=== PATIENT | female | born 1935 | race Caucasian/White ===

== ENCOUNTER 2018-04-06 06:32 | Day surgery (SDC) | payer OTHER, MEDICAID ==
[~2018-04-06] VITALS: Ht 157.5 cm; Wt 77.1 kg
[2018-04-06] MEDS ORDERED: IOHEXOL 350 MG/ML 50 ML BTL (for Cath Lab) OTHER ONE (06:33)
[2018-04-06] MEDS ORDERED: NS 1000P @30 MLS/HR (KVO) IV SCH (07:15)
[2018-04-06 08:04] LABS: AUTOMATED NEUTROPHIL # 3.2 TH/MM3 (1.8-7.7); BASOPHIL # 0.1 TH/MM3 (0-0.2); BASOPHIL % 0.9 % (0.0-2.0); EOSINOPHIL # 0.3 TH/MM3 (0-0.4); EOSINOPHIL % 3.6 % (0.0-4.0); HEMATOCRIT 36.2 % (35.0-46.0); HEMOGLOBIN 12.4 GM/DL (11.6-15.3); LYMPHOCYTE # 2.8 TH/MM3 (1.0-4.8); MEAN CELL VOLUME 91.3 FL (80.0-100.0); MEAN CORPUSCULAR HEMOGLOBIN 31.3 PG (27.0-34.0); MEAN CORPUSCULAR HGB CONC 34.3 % (32.0-36.0); MEAN PLATELET VOLUME 8.4 FL (7.0-11.0); MONO % 11.8 % (0.0-8.0); MONOCYTE # 0.8 TH/MM3 (0-0.9); NEUT % 44.7 % (16.0-70.0); PLATELET COUNT 245 TH/MM3 (150-450); RED BLOOD COUNT 3.96 MIL/MM3 (4.00-5.30); WHITE BLOOD COUNT 7.1 TH/MM3 (4.0-11.0)
[2018-04-06 08:13] LABS: INTERNATIONAL NORMALIZED RATIO 1.1 RATIO; PROTHROMBIN TIME - PATIENT 10.7 SEC (9.8-11.6)
[2018-04-06 08:23] LABS: BICARBONATE 22.3 MEQ/L (21.0-32.0); CALCIUM 9.1 MG/DL (8.5-10.1); CREATININE 1.1 MG/DL (0.50-1.00)
[2018-04-06 08:32] VITALS: BP 162/82; PULSE 75; RESP 18; TEMP 98.1; O2SAT 92
[2018-04-06] MEDS ORDERED: LEVO.075 PO (08:50)
[2018-04-06] MEDS ORDERED: FLUT1SPR5 EACH NARE (08:50)
[2018-04-06] MEDS ORDERED: TRAM50TA PO (08:50)
[2018-04-06] MEDS ORDERED: LEVO.05 PO (08:50)
[2018-04-06] MEDS ORDERED: COQ-50CA2 PO (08:50)
[2018-04-06] MEDS ORDERED: DICY10CA12 PO (08:50)
[2018-04-06] MEDS ORDERED: CINN500C2 PO (08:50)
[2018-04-06] MEDS ORDERED: STOO100T (08:50)
[2018-04-06] MEDS ORDERED: HUMIBIDDM PO (08:50)
[2018-04-06] MEDS ORDERED: ZOFR4TAB PO (08:50)
[2018-04-06] MEDS ORDERED: BIOTCAP PO (08:50)
[2018-04-06] MEDS ORDERED: LEVOTAB PO (08:50)
[2018-04-06] MEDS ORDERED: PANT40TA3 PO (08:50)
[2018-04-06] MEDS ORDERED: MULT-65 PO (08:50)
[2018-04-06] MEDS ORDERED: FIBE625T10 PO (08:50)
[2018-04-06] MEDS ORDERED: LEVA1.257 NEB (08:50)
[2018-04-06] MEDS ORDERED: SENN1TAB PO (08:50)
[2018-04-06] MEDS ORDERED: eye vitamin PO (08:50)
[2018-04-06] MEDS ORDERED: FLUT50SP EACH NARE (08:50)
[2018-04-06] MEDS ORDERED: SACC1CAP3 PO (08:50)
[2018-04-06] MEDS ORDERED: FURO20TA PO (08:50)
[2018-04-06] MEDS ORDERED: LOSA50TA PO (08:50)
[2018-04-06] MEDS ORDERED: ROSU1TAB6 PO (08:50)
[2018-04-06] MEDS ORDERED: B-122000 PO (08:50)
[2018-04-06] MEDS ORDERED: ALPR0.25 PO (08:50)
[2018-04-06] MEDS ORDERED: ASPI81CH6 CHEW (08:50)
[2018-04-06] MEDS ORDERED: VITA250T3 PO (08:58)
[2018-04-06] MEDS ORDERED: CHOL5000 PO (08:58)
[2018-04-06] MEDS ORDERED: zyrtec PO (08:58)
[2018-04-06] MEDS ORDERED: HEPARIN-NS/PF INJ 500 ML ONE (08:59)
[2018-04-06] MEDS ORDERED: MIDAZOLAM HCL 2 MG/2 ML VIAL ONE (08:59)
[2018-04-06] MEDS ORDERED: NITROGLYCERIN INJ 5 ML ONE (08:59)
[2018-04-06] MEDS ORDERED: VERAPAMIL HCL 5 MG/2 ML VIAL ONE (08:59)
[2018-04-06] MEDS ORDERED: HEPARIN SODIUM - IV 10,000 UNITS/10 ML VIAL ONE (08:59)
--- NOTE | 2018-04-06 10:29 | CATHPROC ---
[facility] HIS Report Study Information Study Number Admission Scheduled Start Study Start [id number] Apr 06 2018 6:32AM 04/06/2018 Apr 06 2018 8:45AM [place] [facility] Cardiac Catheterization Admit Source Facility Department Other [facility] - Community Case Manager Physician and Clinical Staff Initial Dilan Caceres Pest Control Worker Helper Ming Anne,HEBER Recorder Ann Benavides,RT(R) (BS) Scrub Shashank CaraballoRT(R) Procedures Performed Procedure Location (Site) Vessel Name Coronary Angiograms LCA Left Coronary Coronary Angiograms RCA Right Coronary Wire insertion Brach. Vein (right) Brachial Vein Wire insertion Fem Art (right) Femoral Art Equipment Time Compensation And Benefits Manager Description Size Mfg Part Number Used/Scraped WIRE, WHISPER W/HYDROCOAT [id number] 09:34 [employer] 190CM Used 190CM *[id number] 09:03 AREVALO LEMONS SWAN NORMA CATHETER FR 7 Used *[id number] TRANSDUCER, TRUWAVE [id number] 09:03 AREVALO LEMONS * Used W/STOCKCOCK *[id number] TRANSDUCER, TRUWAVE [id number] 09:03 AREVALO LEMOSN * Used W/STOCKCOCK *[id number] 534-518T *[id number] 534-521T *[id number] 09:03 [employer] BLANKET,WARM AIR CCL * Used *[id number] 09:03 [employer] PACK, CCL CUSTOM * Used *[id number] BAND, RADIAL COMPRESSION TR [id number] 10:08 [employer] MEDICAL 24CM Used SHORT 24 *[id number] 09:03 [employer] WIRE, 3MMJ .035 180CM 180CM Used *[id number] 09:42 [employer] WIRE, STRAIGHT TIP .035 * Used *[id number] 09:03 NAMIC MANIFOLD, 2 PORT * Used *[id number] 09:03 NAM[employer] MANIFOLD, 4 PORT * Used *[id number] 09:03 [employer] OMNIPAQUE, 350 MG, 150ML 150ML [id number] Used SHEATH, FR6 TRANSRADIAL RM*[id number] 09:21 [employer] FR 6 Used SLENDER 10CM *[id number] SHEATH, FR6 TRANSRADIAL RM*[id number] 09:21 [employer] FR 6 Used SLENDER 10CM *[id number] History: Allergies Allergy Reaction Sulfa (Sulfonamide Antibiotics) Ytvnyqw-Kvd-Rfm Reductase Inhibitor morphine hyoscyamine sulfamethoxazole trimethoprim amoxicillin meperidine citalopram levofloxacin cefdinir History: Risk Factors Family History of Hypertension Dyslipidemia Previous NE Previous Heart Failure Premature CAD Yes Yes No No Yes Prior Valve Prior PCI Prior CABG Surgery No No No Cerebrovascular Peripheral Artery Chronic Lung On Dialysis Diabetes Disease Disease Disease No Yes No Yes Yes History: Stress Tests Stress or Imaging Studies Performed No History: Other Current Smoker No Labs Hgb (g/dl) Hct (%) WBC (l/cumm) Platelets (thousands) 11.60-17.00 35.00-51.00 4.00-11.00 150.00-450.00 12.4 36.2 7.1 245 Glucose (mg/dl) BUN (mg/dl) Creatinine (mg/dl) BUN:Creatinine (1:x) 74.00-106.00 7.00-18.00 0.50-1.30 10.00-20.00 105 13 1.1 11.8 Na (meq/l) K (meq/l) 136.00-145.00 3.50-5.10 140 5.3 INR (PTT:PT) 0.90-1.10 1.1 CPK-MB (ng/ML) 0.50-3.60 Not Drawn Medication Medication Total Dose (Bolus/Oral) Medication Total Dosage/Unit 1% XYLOCAINE 3 mL FENTANYL 25 mcg RADIAL COCKTAIL 1 units Medications (Bolus/Oral) Medication Time Given Dosage/Unit Administered By Reason 1% XYLOCAINE 04/06/2018 9:18:42 AM 1 mL Dilan Michelle 1 mL 1% XYLOCAINE given in lab by Dilan Michelle G in Right Radial via Subcutaneous. FENTANYL 04/06/2018 9:19:29 AM 25 mcg Ming Anne 25 mcg FENTANYL given in lab by Ming Anne, HEBER in Left Forearm via Peripheral IV. Ntg 200mcg Verapamil 2.5mg Heparin RADIAL COCKTAIL 04/06/2018 9:20:59 AM 1 units Dilan Michelle 2000U 1 units RADIAL COCKTAIL given in lab by Ming Anne, HEBER via Radial. Reason: Ntg 200mcg Verapamil 2 .5mg Heparin 3100U. 1% XYLOCAINE 04/06/2018 9:24:20 AM 2 mL Dilan Michelle 2 mL 1% XYLOCAINE given in lab by Dilan Michelle in Right Arm via Subcutaneous. Medication (Drip) Medication Time Given Dosage/Unit Concentration/Unit Diluent (ml) Soluti on IV Solutions 04/06/2018 8:45:18 AM 0 mL (IV) 500 NaCl .9 IV Solutions given in lab by Ming Anne RN in Left Forearm via Peripheral IV. Pump/Drip Flow = 3 0 ml/hr using NaCl .9. Initial Case Assessment Cardiovascular HR Rhythm NIBP Chest Pain 82 irr 171/75 0 Edema Present Skin color Skin None Normal Warm Dry Circulatory - Right Pulses Dorsalis Pedis Femoral Radial 2 1 2 Scale (0,1,2,3,4,d) Circulatory - Left Pulses Dorsalis Pedis Femoral Radial 2 2 Scale (0,1,2,3,4,d) Neurological State Oriented to time-place- Alert Moves all extremities person Respiration - General Respiration Rate SpO2 (%) (B/min) 19 96 Chronological Log Time Study Chronological Log 8:45:03 Patient arrived via Bed. 8:45:05 Patient Name, D.O.B, / Armband Verified By R.N. 8:45:05 Consent signed by the physician and the patient and verified by the Community Case Manager staff. 8:45:06 Pre-op and post- op instructions given; patient acknowledges understanding of instructions. 8:45:07 Verbal Stimulation=2 Physical Stimulation=2 Airway=2 Respiration=2 TOTAL=8. (0=absent, 1=linn ited, 2=present) 8:45:08 Presedation assessment performed by Community Case Manager RN. 8:45:10 Allens test performed on the right radial and ulnar artery. 8:45:12 Patient has been NPO for More than 6Hrs. 8:45:13 Skin Breakdown- 8:45:14 Patient Warmer Placed on the Table. 8:45:15 Harry Prominences Protected 8:45:16 A # 22 IV was noted in the Forearm (left). Grade = 0 IV Solutions given in lab by Ming Anne, HEBER in Left Forearm via Peripheral IV. Pump/Drip Frantz w = 30 ml/hr using NaCl 8:45:18 .9. 8:45:19 History and physical on the chart or being dictated. Assessment: Initial Case, HR=82 BPM, Rhythm=irr, WIUA=952/75 mmhg, Chest Pain=0, Edema=None, Col or=Normal, Skin = Warm, Dry Right Pulses: Sony Ped=2, Femoral=1, Radial=2 8:45:20 Left Pulses: Sony Ped=2, Femoral=2 Neurological: State=Alert, Ox3, PAREDES Respiration: Resp=19 B/min, SpO2=96 % Vitals capture started with the following parameters, Patient=Adult, Interval=5 min, Initial Pre hgasn=868 mmHg, 8:55:28 Deflation Rate=5 mmHg, Cuff placed on Right Ankle 8:56:15 HR=91 bpm, LOYJ=605/75 mmhg, SpO2=95.0 %, Resp=21 B/min, Pain=0, Everardo=10, Fortune=2 8:59:37 Reference ECG taken 9:00:19 MD arrived. 9:01:18 HR=81 bpm, OYPU=706/70 mmhg, SpO2=96.0 %, Resp=20 B/min, Pain=0, Everardo=10, Fortune=2 9:03:44 Right Radial and groin(s) prepped with 2% chlorhexidine, and draped after a 3 min. waiting t radha. 9:06:56 HR=83 bpm, LZNU=295/68 mmhg, SpO2=95.0 %, Resp=15 B/min, Pain=0, Everardo=10, Fortune=2 9:11:16 HR=79 bpm, FRIP=429/68 mmhg, SpO2=93.0 %, Resp=16 B/min, Pain=0, Everardo=10, Fortune=2 9:16:15 HR=78 bpm, FFLA=544/70 mmhg, SpO2=94.0 %, Resp=15 B/min, Pain=0, Everardo=10, Fortune=2 Time Out. Correct patient, correct procedure, correct physician, labs, allergies, and equipment verified with lab aid 9:18:02 team present. Fire risk assesment completed (see hard stop sheet for coding). Time Out Concu rred by MD and individual staff in procedure. 9:18:04 Case Start 9:18:42 1 mL 1% XYLOCAINE given in lab by Dilan Michelle in Right Radial via Subcutaneous. 9:19:01 Pressure channel 1 zeroed. 9:19:02 Pressure channel 2 zeroed. 9::29 25 mcg FENTANYL given in lab by Ming Anne, RN in Left Forearm via Peripheral IV. ::59 Access site was right Radial Artery. A SHEATH, FR6 TRANSRADIAL SLENDER 10CM FR 6 was advanced into the Radial (right) using the Percu aimee 9:20:05 technique. 1 units RADIAL COCKTAIL given in lab by Ming Anne, RN via Radial. Reason: Ntg 200mcg Verapa mil 2.5mg Heparin 9::59 3100U. 9:21:55 HR=81 bpm, UMJB=222/65 mmhg, SpO2=93.0 %, Resp=17 B/min, Pain=0, Everardo=10, Fortune=2 9:24:20 2 mL 1% XYLOCAINE given in lab by Dilan Michelle in Right Arm via Subcutaneous. 9:26:15 HR=82 bpm, VRUF=326/67 mmhg, SpO2=91.0 %, Resp=8 B/min, Pain=0, Everardo=10, Fortune=2 9:27:53 Access site was Right Brachial Vein. A SHEATH, FR6 TRANSRADIAL SLENDER 10CM FR 6 was advanced into the Brach. Vein (right) using the Percutaneous 9:28:02 technique. A SWAN NORMA CATHETER FR 7 was advanced over a wire. OMNIPAQUE, 350 MG, 150ML 150ML was used for 9:30:21 injections. 9:31:16 HR=78 bpm, QBLO=494/64 mmhg, SpO2=92.0 %, Resp=13 B/min, Pain=0, Everardo=10, Fortune=2 9:34:03 A WIRE, WHISPER W/HYDROCOAT 190CM 190CM was inserted via Brach. Vein (right). 9:36:54 HR=78 bpm, QXHP=615/72 mmhg, SpO2=92.0 %, Resp=12 B/min, Pain=0, Everardo=10, Fortune=2 9:37:01 Wire removed Recorded Pressure: PCW, HR=78, Condition=Condition 1 9:38:24 (Pulmonary Capillary Wedge) PCW 27/18/13 A JR 4.0 INFINITI CATHETER FR 5 was advanced over a wire. OMNIPAQUE, 350 MG, 150ML 150ML was us ed for 9:39:36 injections. 9:41:16 HR=77 bpm, BMJA=488/73 mmhg, SpO2=94.0 %, Resp=11 B/min, Pain=0, Everardo=10, Fortune=2 9:41:37 Wire removed 9:41:39 A WIRE, STRAIGHT TIP .035 * was inserted via Fem Art (right). 9:42:48 Wire removed Recorded Pressure: LV, PCW, HR=79, Condition=Condition 1 9:43:41 (Left Ventricle) LV 228/6/25, (Pulmonary Capillary Wedge) PCW 37/24/20 Recorded Pressure: LV, PCW, HR=76, Condition=Condition 1 9:45:32 (Left Ventricle) LV 213/4/24, (Pulmonary Capillary Wedge) PCW 32/18/12 9:46:15 HR=75 bpm, LWSP=394/69 mmhg, SpO2=95.0 %, Resp=10 B/min, Pain=0, Everardo=10, Fortune=2 Recorded Pressure: LV, HR=81, Condition=Condition 1 9:46:28 (Left Ventricle) LV 218/-1/13 Recorded Pressure: LV, Ao, HR=76, Condition=Condition 1 9:46:47 (Left Ventricle) LV 227/-1/17, (Aorta) Ao 168/58/101 Recorded Pressure: Ao, HR=76, Condition=Condition 1 9:47:05 (Aorta) Ao 157/54/98 9:49:13 Saturation: Site=PA (Pulmonary Artery) , O2=62.5 %, Hgb=12.4 gm/dl, Condition=Condition 1. U sed in calculation. 9:49:49 Saturation: Site=FA (Femoral Artery) , O2=88.9 %, Hgb=12.4 gm/dl, Condition=Condition 1. Use d in calculation. Recorded Pressure: MPA, HR=77, Condition=Condition 1 9:50:29 (Main Pulmonary Artery) MPA 37//22 9:51:16 HR=75 bpm, UDDU=067/72 mmhg, SpO2=93.0 %, Resp=11 B/min, Pain=0, Everardo=10, Fortune=2 Recorded Pressure: RV, HR=80, Condition=Condition 1 9:54:17 (Right Ventricle) RV 46/2/16 Recorded Pressure: RA, HR=75, Condition=Condition 1 9:54:49 (Right Atrium) RA 9:56:22 HR=71 bpm, YNPQ=277/61 mmhg, SpO2=97.0 %, Resp=9 B/min, Pain=0, Everardo=10, Fortune=2 10:00:08 The RCA was injected and visualized at various angles. OMNIPAQUE, 350 MG, 150ML 150ML used . After removing the current catheter a JL 3.5 INFINITI CATHETER FR 5 was advanced over a WIRE, 3 MMJ .035 180CM 10:01:20 180CM. 10:01:23 HR=77 bpm, VBPO=824/63 mmhg, SpO2=92.0 %, Resp=11 B/min, Pain=0, Everardo=10, Fortune=2 10:04:10 The LCA was injected and visualized at various angles. OMNIPAQUE, 350 MG, 150ML 150ML used . 10:06:55 [place] Norma Catheter Removed 10:07:09 HR=80 bpm, GDHO=155/67 mmhg, SpO2=93.0 %, Resp=18 B/min, Pain=0, Everardo=10, Fortune=2 10:07:17 Activated Clotting Time Drawn 10:07:37 Catheter was removed 10:07:48 Case End (Physician broke scrub) 10:08:41 Catheter(s) removed without difficulty Radial Compression Device Used. 11 mLs of air placed in BAND, RADIAL COMPRESSION TR SHORT 24 2 4CM. Affected 10:08:45 hand ~O2 SATURATION~ % O2 saturation. 10:08:59 No case complications noted. 10:09:01 Bedside Report will be given. 10:09:05 A Left and Right Heart Cath was performed. 10:10:55 ACT (Normal Range 90-180) = 183 10:11:23 HR=82 bpm, ELUZ=335/78 mmhg, SpO2=92.0 %, Resp=15 B/min, Pain=0, Everardo=10, Fortune=2 10:11:58 Sheath removed; pressure applied to access site. 10:17:05 HR=80 bpm, KFOH=624/105 mmhg, SpO2=94.0 %, Resp=30 B/min, Pain=0, Everardo=10, Fortune=2 10:21:27 HR=78 bpm, NYCI=695/69 mmhg, SpO2=96.0 %, Resp=22 B/min, Pain=0, Everardo=10, Fortune=2 10:23:42 Sterile dressing applied to site 10:25:53 Vitals capture stopped. 10:26:58 Patient moved to stretcher End Study - Contrast Media Used In Study Contrast Total Opened (mL) Total Used (mL) Total Wasted (mL) Omnipaque 30 30 0 End Study - Maximum Contrast Load Max Contrast Load (mL) 350.4 End Study - Radiation Exposure Fluoro Time (minutes) 6.4 End Study - Sheaths Sheaths Pulled By Sheath Hold Time (min) Shashank Caraballo End Study - Patient Disposition Complications Transferred To Interventional Outcome No Community Case Manager Holding No attempt made
[2018-04-06] MEDS ORDERED: MISC INFORMATION XX ONE (10:45)
--- NOTE | 2018-04-06 11:51 | RADRPT ---
EXAM DATE: 04/06/2018 11:47 AM EDT AGE/SEX: 83 years / Female INDICATIONS: Evaluate for pneumonia, pneumothorax, or any communicable disease. Pre op CABG. CLINICAL DATA: This is the patient's initial encounter. Patient reports that signs and symptoms have been present for 1 day and indicates a pain score of 0/10. MEDICAL/SURGICAL HISTORY: None. Pacemaker. Heart cath. COMPARISON: POI, XR CHEST PA AND LAT, 05/18/2017. . FINDINGS: The lungs are clear without infiltrate, nodule, or mass. There is no appreciable pleural effusion for technique. Heart and mediastinum are unremarkable. Left subclavian transvenous pacer wi res are present with tips in the right atrium and right ventricle. There is evidence for prior granul omatous exposure with calcified granulomas bilaterally. Postsurgical changes in the right shoulder ar e again seen with diffuse osteopenia and not changed. CONCLUSION: No acute cardiopulmonary disease. Electronically signed by: Noble Holman MD 04/06/2018 11:50 AM EDT
[2018-04-06 12:16] LABS: BACTERIA, URINE MOD /hpf; BILIRUBIN, URINE NEG (NEG); BLOOD, URINE TRACE (NEG); GLUCOSE,URINE NEG (NEG); KETONE, URINE 10 mg/dL (NEG); NITRITE,URINE NEG (NEG); PH, URINE 5.5 (5.0-8.5); URINE COLOR LIGHT-YELLOW (YELLW/STRAW); URINE LEUKOCYTE ESTERASE TRACE (NEG)
[2018-04-06 13:02] LABS: ALKALINE PHOSPHATASE 78 U/L (45-117); TOTAL BILIRUBIN ADULT 0.9 MG/DL (0.2-1.0); TOTAL PROTEIN 7.3 GM/DL (6.4-8.2)
[2018-04-06 13:18] LABS: ALBUMIN 3.6 GM/DL (3.4-5.0); ALT (GPT) 17 U/L (10-53); DIRECT BILIRUBIN ADULT 0.1 MG/DL (0.0-0.2); INDIRECT BILIRUBIN 0.8 MG/DL (0.0-0.8)
[2018-04-06 13:22] LABS: AST (GOT) 44 U/L (15-37)
--- NOTE | 2018-04-06 14:04 | RADRPT ---
EXAM DATE: 04/06/2018 2:00 PM EDT AGE/SEX: 83 years / Female INDICATIONS: Pre op cardiac surgery. CLINICAL DATA: This is the patient's initial encounter. Patient reports that signs and symptoms have been present for 1 day and indicates a pain score of 0/10. MEDICAL/SURGICAL HISTORY: . Hypothyroid. HTN. GERD. CKD. Diabetic. . Cardiac catheterizati on. COMPARISON: No prior exams available for comparison. No external comparison. VELOCITY PARAMETERS: ICA/CCA Ratio: Right 1.6 , Left 1.6 ICA: Right 97.6 cm/sec, Left 96.8 cm/sec CCA: Right 59.8 cm/sec, Left 62.0 cm/sec ECA: Right 75.0 cm/sec, Left 49.7 cm/sec Vertebral: Right 46.5 cm/sec antegrade, Left 55.6 cm/sec antegrade FINDINGS: Right Carotid: There is mild calcified and noncalcified plaque in the distal common carotid artery a nd carotid bulb. No high-grade stenosis is visualized on grayscale imaging. Left Carotid: There is mild calcified and noncalcified plaque scattered through the common carotid a rtery and within the carotid bulb. No high-grade stenosis is visualized on grayscale imaging. Other: None. CONCLUSION: 1. Right Internal Carotid Artery: Findings indicate <50% stenosis. 2. Left Internal Carotid Artery: Findings indicate <50% stenosis. Electronically signed by: Ebenezer Rashid MD 04/06/2018 2:02 PM EDT
--- NOTE | 2018-04-06 14:11 | RADRPT ---
EXAM DATE: 04/06/2018 2:06 PM EDT AGE/SEX: 83 years / Female INDICATIONS: Preop cardiac surgery. CLINICAL DATA: This is the patient's initial encounter. Patient reports that signs and symptoms have been present for 1 day and indicates a pain score of 0/10. MEDICAL/SURGICAL HISTORY: . Hypothyroid. HTN. GERD. CKD. Diabetic. . Cardiac catheterizati on. COMPARISON: No prior exams available for comparison. No external comparison. TECHNIQUE: Venous ultrasound of both lower extremities was performed from the inguinal ligament to t he proximal calf. Real-time, color Doppler and spectral tracing, compression and augmentation techni ques were used. FINDINGS: Right Leg: There is normal compressibility of the deep venous system from the inguinal region to the proximal calf. No echogenic clot is seen in the lumen of the common femoral, femoral, popliteal, an d posterior tibial veins. There is a normal response of the venous system to proximal and distal aug mentation and respiration. Left Leg: There is normal compressibility of the deep venous system from the inguinal region to the proximal calf. No echogenic clot is seen in the lumen of the common femoral, femoral, popliteal, and posterior tibial veins. There is a normal response of the venous system to proximal and distal augm entation and respiration. CONCLUSION: The study is negative for bilateral lower extremity deep venous thrombosis. Electronically signed by: Ebenezer Hastings MD 04/06/2018 2:10 PM EDT
--- NOTE | 2018-04-06 14:12 | RADRPT ---
EXAM DATE: 04/06/2018 2:03 PM EDT AGE/SEX: 83 years / Female INDICATIONS: Preop cardiac surgery. CLINICAL DATA: This is the patient's initial encounter. Patient reports that signs and symptoms have been present for 1 day and indicates a pain score of 0/10. MEDICAL/SURGICAL HISTORY: . Hypothyroid. HTN. GERD. CKD. Diabetic. . Cardiac catheterizati on. COMPARISON: No prior exams available for comparison. No external comparison. MEASUREMENTS: RIGHT THIGH: Proximal:__7 mm Mid:__ 2 mm Distal:__2 mm LEFT THIGH: Proximal:__7 mm Mid:__3 mm Distal:__2 mm RIGHT CALF: Proximal:__2 mm Mid:__2 mm Distal:__1 mm LEFT CALF: Proximal:__2 mm Mid:__1 mm Distal:__1 mm FINDINGS: The venous system of the lower extremities are patent by color Doppler imaging. Measurements of the leg veins (in mm) are listed above. CONCLUSION: Patent saphenous veins bilaterally with measurements as above Electronically signed by: Ebenezer Hastings MD 04/06/2018 2:10 PM EDT
--- NOTE | 2018-04-06 15:55 | RADRPT ---
EXAM DATE: 04/06/2018 3:45 PM EDT AGE/SEX: 83 years / Female INDICATIONS: Evaluate for calcification and other communicable disease. Pre op aortic valve replacem ent. CLINICAL DATA: This is the patient's initial encounter. Patient reports that signs and symptoms have been present for 1 day and indicates a pain score of 0/10. MEDICAL/SURGICAL HISTORY: Congestive heart failure. Diabetes. Pacemaker. RADIATION DOSE: 16.82 CTDI (mGy) COMPARISON: POI, CT CHEST W/O CONTRAST, 06/18/2015. . TECHNIQUE: Multiple contiguous axial images were obtained through the chest without contrast. Image s were obtained in suspended respiration using multiple row detector helical technique. Using automa juan r exposure control and adjustment of the mA and/or kV according to patient size, radiation dose was kept as low as reasonably achievable to obtain optimal diagnostic quality images. FINDINGS: Hazy parenchymal process is seen in right lower lung may represent pneumonia and/or atelectasis. Ther e is also slight infiltrate in the left lower lobe and right upper lobe posteriorly. There are small calcified granulomas in both lungs with scattered areas of parenchymal densities have the appearance of scar some of them partially nodular not significantly changed since the prior exam. There is no p leural effusion. No appreciable pathological adenopathy is seen within the mediastinum. CONCLUSION: Bilateral parenchymal infiltrates may represent pneumonia. Electronically signed by: Noble Holman MD 04/06/2018 3:54 PM EDT
--- NOTE | 2018-04-06 20:07 | EKG ---
Date Performed: 04/06/2018 Time Performed: 07:45:02 PTAGE: 83 years EKG: Normal Sinus Rythm Probable P-wave Synchronous pacing versus Left Bundle Branch Block. No p riror tracing for comparison. Clinical correlation is recommended Abnormal ECG NO PREVIOUS TRACING DOCTOR: Sarah Gaspar Interpretating Date/Time 04/06/2018 20:06:02
[2018-04-06 20:14] LABS: HEMOGLOBIN A1C 6.2 % (4.3-6.0)
[2018-04-07] MEDS ORDERED: CETI-1 PO (10:46)
--- NOTE | 2018-04-07 18:05 | MB ---
cc: Zelda Pickering DATE: 04/06/2018 PRIMARY CARE PROVIDER: Dr. Ginette Beasley TOBACCO BUYER: Dr. Freeman. HISTORY OF PRESENT ILLNESS: This 83-year-old patient presented with history of recent chest pain, has history of aortic stenosis. Pain had started increasing with exertion. Prior to that, she had a recent echocardiogram that showed an ejection fraction of 55%. The aortic valve had a valve area of 0.8, mean gradient of 42 with a peak gradient of 74. There was also some moderate mitral stenosis, trivial mitral regurgitation, trivial tricuspid regurgitation. She underwent elective cardiac catheterization, which showed proximal LAD 90%, the mid distal LAD 80%. By cath, the aortic valve area was 0.57, the mitral valve area 2.0. Cardiac output of 5, index of 2.8. PA pressures of 37/11 with a mean of 22. We were consulted to evaluate for aortic valve, mitral valve replacement and coronary artery bypass graft x 1. PAST MEDICAL HISTORY: Includes aortic stenosis, mitral stenosis, chronic kidney disease stage II, COPD, diabetes mellitus type 2, gastroesophageal reflux disease, hyperlipidemia, hypertension, hypothyroidism, multifocal atrial tachycardia. She does have a pacer in situ. She has a history of ventricular tachycardia and sarcoidosis. She follows with Dr. Ignacio Davis. PAST SURGICAL HISTORY: Right knee replacement, the pacemaker in situ that is a Biotronik and right shoulder replacement. ALLERGIES: STATINS, SULFA, AMOXICILLIN, HYOSCINE, LEVAQUIN, MEPERIDINE, MORPHINE, CEFDINIR, CITALOPRAM. HOME MEDICATIONS: Include: 1. Zyrtec. 2. Dicyclomine. 3. Xopenex. 4. Crestor. 5. Losartan. 6. Aspirin. 7. Tramadol. 8. Xanax. 9. Lasix. 10. Mucinex. 11. Flonase. 12. Senna. 13. Probiotic. 14. Levothyroxine. 15. Biotin. 16. Multivitamins. FAMILY HISTORY: Mother from accidental . Father from liver cirrhosis. SOCIAL HISTORY: The patient is , 4 children. She was exposed to some type of chemicals when she worked for [employer]. 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 No alcohol. REVIEW OF SYSTEMS: GENERAL: No night sweats, fever, heat and cold intolerance. SKIN: No psoriasis, itching or hives. HEENT: No blurred vision, hearing loss. RESPIRATORY: Positive for some shortness of breath, recent chest pain. GASTROINTESTINAL: No diarrhea or vomiting. GENITOURINARY: No burning, frequency, urgency. CENTRAL NERVOUS SYSTEM: No history of TIA, CVA or seizure disorder. ENDOCRINOLOGY: Positive for hypothyroidism. PHYSICAL EXAMINATION: VITAL SIGNS: Blood pressure 160/80, heart rate is 74, afebrile. GENERAL: The patient is awake, alert, in no acute distress. HEENT: Head is normocephalic, atraumatic. Pupils equal and reactive. Oral mucosa pink, moist. NECK: Supple. No JVD. CARDIOVASCULAR: Heart sounds S1, S2. The patient has a grade III/ systolic murmur, also diastolic component. LUNGS: Clear to auscultation without wheezes, rales or rhonchi. ABDOMEN: Obese, soft, nontender. No masses or organomegaly. EXTREMITIES: Reveal no cyanosis, clubbing, or edema. LABORATORY DATA: Shows hemoglobin 12, hematocrit 36, white cell count of 7, platelet count of 245. Sodium 140, potassium 5.3, BUN of 13, creatinine 1.0. Hemoglobin A1c 6.2. INR 1.1. Urinalysis: Moderate bacteria. The culture is pending. She does have some gram negative rods in her urine. IMAGING STUDIES: Carotid ultrasound shows the right internal carotid less than 50, the left internal carotid less than 50. Chest CT: Bilateral parenchymal infiltrates, concern for pneumonia; however, she has a history of sarcoidosis. Apparently, there is some haziness in her right lower lobe; however, she does not have indication with fever and leukocytosis. ASSESSMENT AND PLAN: This is an 83-year-old female with multiple comorbidities, unable to complete STS due to double valve possible procedure and coronary artery bypass grafting. In the meantime, the 2D echo CD will be obtained from [facility]. The patient will be following up with Dr. Olga Rodriguez on 04/20/2018 with her family to discuss surgery and indications for replacing the mitral valve. I agree that she does need aortic valve replacement and she does need 1-vessel bypass. She does have high risk due to her comorbidities including her chronic obstructive pulmonary disease, history of sarcoidosis, FEV1 of 1.2. Currently there is evidence of a urinary tract infection and possible right lower lobe pneumonia, which would need to be cleared by her primary care. In the meantime, we will add an antibiotic for the urinary tract infection, which will hopefully cover for any outpatient community-acquired pneumonia. PHILOMENA Toro MD JRT/PARUL , 05:33 PM , 06:04 PM
== END 2018-04-06 18:15 | disposition home or self-care (01) ==
LOC: HDOC 06:32 → HDIC 06:36 → HDOC 18:15
PROVIDERS: ATTEND Nuclear Medicine Nuclear Cardiology
DX: I35.1 Nonrheumatic aortic (valve) insufficiency (principal); I34.0 Nonrheumatic mitral (valve) insufficiency; I25.10 Atherosclerotic heart disease of native coronary artery without angina pectoris; I13.0 Hypertensive heart and chronic kidney disease with heart failure and stage 1 through stage 4 chronic kidney disease, or unspecified chronic kidney disease; I50.9 Heart failure, unspecified; N18.9 Chronic kidney disease, unspecified; I65.23 Occlusion and stenosis of bilateral carotid arteries; E03.9 Hypothyroidism, unspecified; E11.22 Type 2 diabetes mellitus with diabetic chronic kidney disease; N39.0 Urinary tract infection, site not specified; B96.1 Klebsiella pneumoniae [K. pneumoniae] as the cause of diseases classified elsewhere; K21.9 Gastro-esophageal reflux disease without esophagitis; Z95.0 Presence of cardiac pacemaker; Z01.818 Encounter for other preprocedural examination
CPT/HCPCS: 71045; 71250; 80048; 80076; 81001; 82810; 83036; 85002; 85025; 85610; 85730; 86850; 86900; 86901; 87077; 87086; 87186; 87641; 93005; 93460; 93880; 93970; 93998; 94010; C1769; C1893; J1644; J2250; J3010; Q9967

== ENCOUNTER 2018-05-07 14:24 | Inpatient (IN) ==
--- NOTE | 2018-05-07 15:39 | XR ---
EXAM DATE: 05/07/2018 3:35 PM EDT AGE/SEX: 83 years / Female INDICATIONS: Shortness of breath and chest pain. CLINICAL DATA: This is the patient's initial encounter. Patient reports that signs and symptoms have been present for 2 days and indicates a pain score of 5/10. MEDICAL/SURGICAL HISTORY: Hypertension. Diabetes mellitus type II. Chronic obstructive pulmon mike disease. Pacemaker. [place] [facility] [place] . FINDINGS: A single AP view of the chest demonstrates cardiomegaly. Pacer leads overlie right atrium and right v entricle. Remote granulomatous disease. Interstitial prominence at the bases, probably mild pulmonary edema. Trace pleural fluid. Previous right shoulder replacement. CONCLUSION: Cardiomegaly with mild pulmonary edema pattern. Pacer leads in right atrium and right ventricle. Electronically signed by: Trino Friedman MD 05/07/2018 3:37 PM EDT
[2018-05-07 15:41] LABS: Baso % (Auto) 0.4 % (0.0-2.0); Hematocrit 35.5 % (35.0-46.0); Hemoglobin 11.9 gm/dL (11.6-15.3); Lymph # (Auto) 1.2 th/mm3 (1.0-4.8); Lymph % (Auto) 13.6 % (9.0-44.0); Mean Corpuscular HGB Conc 33.7 % (32.0-36.0); Mean Corpuscular Hemoglobin 30.7 pg (27.0-34.0); Mean Corpuscular Volume 91.3 fL (80.0-100.0); Mean Platelet Volume 7.5 fL (7.0-11.0); Mono # (Auto) 0.2 th/mm3 (0.0-0.9); Mono % (Auto) 2.7 % (0.0-8.0); Neut # (Auto) 7.3 th/mm3 (1.8-7.7); Neut % (Auto) 83.3 % (16.0-70.0); Platelet Count 315 th/mm3 (150-450); Red Blood Count 3.89 mil/mm3 (4.00-5.30); Red Cell Distribution Width 14.2 % (11.6-17.2); White Blood Count 8.8 th/mm3 (4.0-11.0)
[2018-05-07 15:53] LABS: INR 1.1 Ratio; Prothrombin Time 11.6 sec (9.8-11.6)
[2018-05-07 16:02] LABS: Alanine Aminotransferase 24 U/L (10-53); Albumin 3.5 g/dL (3.4-5.0); Anion Gap 10 meq/L (5-15); Aspartate Aminotransferase 13 U/L (15-37); Blood Urea Nitrogen 15 mg/dL (7-18); Calcium 8.5 mg/dL (8.5-10.1); Carbon Dioxide 27.3 meq/L (21.0-32.0); Chloride 105 meq/L (98-107); Glomerular Filtration Rate 48 mL/min (>89); Glucose,Random 165 mg/dL (74-106); Sodium 142 meq/L (136-145)
[2018-05-07 16:06] LABS: Alkaline Phosphatase 71 U/L (45-117); Total Protein 6.8 g/dL (6.4-8.2)
[2018-05-07 16:29] LABS: Bilirubin,Urine Negative (Negative); Clarity,Urine Clear (Clear); Color,Urine Straw (Yellw/Straw); Glucose,Urine (UA) Negative (Negative); Leukocyte Esterase,Urine Negative (Negative); Mucus,Urine Few /lpf (Occasional); Nitrite,Urine Negative (Negative); Specific Gravity,Urine 1.004 (1.002-1.035); Squamous Epithelial Cell,Urine <1 /hpf (0-5)
--- NOTE | 2018-05-07 18:10 | CT ---
EXAM DATE: 05/07/2018 6:03 PM EDT AGE/SEX: 83 years / Female INDICATIONS: Shortness of breath, left side chest pain. CLINICAL DATA: This is the patient's initial encounter. Patient reports that signs and symptoms have been present for 1 day and indicates a pain score of 3/10. MEDICAL/SURGICAL HISTORY: Chronic obstructive pulmonary disease. Diabetes. Hypertension. Sarcoid osis Pacemaker. Right shoulder replacement. RADIATION DOSE: 10.77 CTDI (mGy) COMPARISON: No prior exams available for comparison. TECHNIQUE: Volumetric scanning was performed using a multi-row detector CT scanner during bolus infu peter of 74 ml Omnipaque 350 (iohexol) nonionic water-soluble contrast as a single exam dose. The turner a was post processed with a variety of visualization algorithms including full volume maximum intensi ty projection and sliding thin slab reformation. Using automated exposure control and adjustment of the mA and/or kV according to patient size, radiation dose was kept as low as reasonably achievable t o obtain optimal diagnostic quality images. DICOM format image data is available electronically for review and comparison. FINDINGS: No filling defects are seen to suggest pulmonary embolic disease. There are moderate coronary calcifi cations. Small right effusion with patchy airspace consolidation at the right lung base. Also minimal left basilar airspace disease. Numerous calcified granulomata in the lungs and numerous hilar calcif ied. Pacer leads in right atrium and right ventricle. CONCLUSION: 1. Negative for pulmonary embolus. 2. Basilar airspace disease predominantly on the right side with small right effusion. 3. Remote granulomatous disease. 4. Pacer leads in right atrium and right ventricle. Right shoulder replacement. Electronically signed by: Trino Friedman MD 05/07/2018 6:09 PM EDT
--- NOTE | 2018-05-07 18:57 | ED ---
HPI General Chief complaint: Shortness of Breath/Dyspnea Stated complaint: Congestive Heart Failure Time Seen by Provider: 05/07/18 14:46 Source: patient and family Mode of arrival: ambulatory Limitations: no limitations History of Present Illness HPI narrative: Patient is a 83 year old female who comes in complaining of SOB. She has been feeling short of breath for the past 2 weeks. She was here 2 weeks ago and treated for COPD. She says she just has not gotten better. She did see her nurse's companion and was given a course of antibiotics and more steroids. She says she continues to feel short of breath. She got worse last night with increasing cough and trouble breathing. She denies fever chills. She says she feels very weak and cannot walk very far without getting short of breath. She gets short of breath lying flat. She was on Lasix, but it has recently been stopped due to concerns of her kidney function. Severity is mild to moderate. Related Data Home Medications Medication Instructions Recorded Confirmed Saccharomyces boulardii 500 mg PO BID 05/07/18 05/07/18 albuterol sulfate [Ventolin HFA] 2 puff INHALATION Q4HR 05/07/18 05/07/18 alprazolam 0.25 mg PO Q6H PRN 05/07/18 05/07/18 amoxicillin-pot clavulanate 1 tab PO TID 05/07/18 05/07/18 ascorbic acid (vitamin C) [Vitamin 500 mg PO DAILY 05/07/18 05/07/18 C] aspirin [Aspirin Low Dose] 81 mg PO DAILY 05/07/18 05/07/18 biotin 5 mg PO DAILY 05/07/18 05/07/18 calcium polycarbophil 1,250 mg PO DAILY 05/07/18 05/07/18 cetirizine [Zyrtec] 10 mg PO DAILY 05/07/18 05/07/18 cholecalciferol (vitamin D3) 5,000 unit PO DAILY 05/07/18 05/07/18 cinnamon bark [Cinnamon] 1,000 mg PO DAILY 05/07/18 05/07/18 codeine-guaifenesin [Cheratussin 5 ml PO Q6H 05/07/18 05/07/18 AC] coenzyme Q10 100 mg PO DAILY 05/07/18 05/07/18 cyanocobalamin (vitamin B-12) 1,000 mcg PO DAILY 05/07/18 05/07/18 dextromethorphan-guaifenesin 1 tab PO Q12H 05/07/18 05/07/18 [Mucinex DM] dicyclomine 10 mg PO BID 05/07/18 05/07/18 docusate sodium 200 mg PO DAILY 05/07/18 05/07/18 fluticasone 2 spray INTRANASAL DAILY 05/07/18 05/07/18 furosemide 20 mg PO DAILY 05/07/18 05/07/18 levalbuterol HCl 1.25 mg INHALATION Q4-6H PRN 05/07/18 05/07/18 levocetirizine 5 mg PO DAILY 05/07/18 05/07/18 levothyroxine 50 mcg PO DAILY 05/07/18 05/07/18 levothyroxine 75 mcg PO DAILY 05/07/18 05/07/18 losartan 50 mg PO DAILY 05/07/18 05/07/18 multivitamin [Multiple Vitamins] 1 tab PO DAILY 05/07/18 05/07/18 ondansetron 4 mg PO Q6-8H PRN 05/07/18 05/07/18 pantoprazole 40 mg PO DAILY 05/07/18 05/07/18 prednisone 2 tab PO PER PKG DIR 05/07/18 05/07/18 rosuvastatin 10 mg PO HS 05/07/18 05/07/18 sennosides-docusate sodium [Senna 1 tab PO BID PRN 05/07/18 05/07/18 Plus] tramadol 50 mg PO Q8HR 05/07/18 05/07/18 Allergies Allergy/AdvReac Type Severity Reaction Status Date / Time levofloxacin Allergy Severe RASH Verified 05/07/18 15:22 meperidine Allergy Severe ITCHING Verified 05/07/18 15:22 RASH morphine Allergy Severe ITCHING Verified 05/07/18 15:22 vancomycin Allergy Mild ITCHING, Verified 05/07/18 15:22 RASH cefdinir Allergy Unknown Itching Verified 05/07/18 15:22 amoxicillin Allergy Itching Verified 05/07/18 15:22 citalopram Allergy Itching Verified 05/07/18 15:22 hyoscyamine Allergy unknown Verified 05/07/18 15:22 Tapmdev-Rus-Xfm Reductase Allergy Cramping Verified 05/07/18 15:22 Inhibitor of the Muscles Sulfa (Sulfonamide Allergy Difficulty Verified 05/07/18 15:22 Antibiotics) Breathing [facility] Medical History Medical History COPD (chronic obstructive pulmonary disease) (Acute) Diabetes mellitus (Acute) FHx: total knee replacement (Acute) GERD (gastroesophageal reflux disease) (Acute) High cholesterol (Acute) Hypertension (Acute) Pacemaker (Acute) Sarcoidosis of lung (Acute) Thyroid disease (Acute) Surgical History Surgical History H/O shoulder replacement (Acute) H/O total hysterectomy (Acute) History of appendectomy (Acute) History of cholecystectomy (Acute) Hx of cataract surgery (Acute) Social History Social History Substance History: No History of Abuse Smoking Status: Never smoker How Often Do You Have a Drink Containing Alcohol: Never Recent Travel in [facility] within the Last 8 Weeks: No Immunization History Tetanus Immunization: Unsure Hx Influenza Vaccine This Season: Yes Course Initial Documented Vital Signs Temperature 97.9 F 05/07/18 14:31 Pulse Rate 80 05/07/18 14:31 Respiratory Rate 17 05/07/18 14:31 Blood Pressure 151/65 H 05/07/18 14:31 Pulse Oximetry 91 L 05/07/18 14:31 Last Documented Vital Signs Temperature 97.9 F 05/07/18 14:31 Pulse Rate 83 05/07/18 18:28 Respiratory Rate 20 05/07/18 18:28 Blood Pressure 160/72 H 05/07/18 18:28 Pulse Oximetry 96 05/07/18 18:28 Medical Decision Making Lab Data Result diagrams: 05/07/18 15:25 05/07/18 15:25 Lab Results 05/07/18 05/07/18 05/07/18 Range/Units 15:25 15:25 15:25 WBC 8.8 (4.0-11.0) th/mm3 RBC 3.89 L (4.00-5.30) mil/mm3 Hgb 11.9 (11.6-15.3) gm/dL Hct 35.5 (35.0-46.0) % MCV 91.3 (80.0-100.0) fL MCH 30.7 (27.0-34.0) pg MCHC 33.7 (32.0-36.0) % RDW 14.2 (11.6-17.2) % Plt Count 315 (150-450) th/mm3 MPV 7.5 (7.0-11.0) fL Neut % (Auto) 83.3 H (16.0-70.0) % Lymph % (Auto) 13.6 (9.0-44.0) % [place] % (Auto) 2.7 (0.0-8.0) % Eos % (Auto) 0.0 (0.0-4.0) % Baso % (Auto) 0.4 (0.0-2.0) % Neut # (Auto) 7.3 (1.8-7.7) th/mm3 Lymph # (Auto) 1.2 (1.0-4.8) th/mm3 [place] # (Auto) 0.2 (0.0-0.9) th/mm3 Eos # (Auto) 0.0 (0.0-0.4) th/mm3 Baso # (Auto) 0.0 (0.0-0.2) th/mm3 WBC Differential . Differential Comment Auto diff final PT 11.6 (9.8-11.6) sec INR 1.1 Ratio APTT 26.0 (24.3-30.1) sec Sodium 142 (136-145) meq/L Potassium 4.0 (3.5-5.1) meq/L Chloride 105 (98-107) meq/L Carbon Dioxide 27.3 (21.0-32.0) meq/L Anion Gap 10 (5-15) meq/L BUN 15 (7-18) mg/dL Creatinine 1.09 H (0.50-1.00) mg/dL Estimated GFR 48 L (>89) mL/min Random Glucose 165 H (74-106) mg/dL Calcium 8.5 (8.5-10.1) mg/dL Total Bilirubin 0.5 (0.2-1.0) mg/dL AST 13 L (15-37) U/L ALT 24 (10-53) U/L Alkaline Phosphatase 71 (45-117) U/L Total Creatine Kinase (26-192) U/L Troponin I Less than 0.02 L (0.02-0.05) ng/mL B-Natriuretic Peptide (0-100) pg/mL Total Protein 6.8 (6.4-8.2) g/dL Albumin 3.5 (3.4-5.0) g/dL Urine Color (Yellw/Straw) Urine Clarity (Clear) Urine pH (5.0-8.5) Ur Specific [place] (1.002-1.035) Urine Protein (Neg-Trace) mg/dL Urine Glucose (UA) (Negative) mg/dL Urine Ketones (Negative) mg/dL Urine Occult Blood (Negative) Urine Nitrate (Negative) Urine Bilirubin (Negative) Urine Urobilinogen (Less than 2) mg/dL Ur Leukocyte Esterase (Negative) Urine RBC (0-3) /hpf Urine WBC (0-5) /hpf Ur Squamous Epith Cells (0-5) /hpf Urine Mucus (Occasional) /lpf Micro UA Comment Urine Culture Comments 05/07/18 05/07/18 05/07/18 Range/Units 15:25 15:25 16:00 WBC (4.0-11.0) th/mm3 RBC (4.00-5.30) mil/mm3 Hgb (11.6-15.3) gm/dL Hct (35.0-46.0) % MCV (80.0-100.0) fL MCH (27.0-34.0) pg MCHC (32.0-36.0) % RDW (11.6-17.2) % Plt Count (150-450) th/mm3 MPV (7.0-11.0) fL Neut % (Auto) (16.0-70.0) % Lymph % (Auto) (9.0-44.0) % [place] % (Auto) (0.0-8.0) % Eos % (Auto) (0.0-4.0) % Baso % (Auto) (0.0-2.0) % Neut # (Auto) (1.8-7.7) th/mm3 Lymph # (Auto) (1.0-4.8) th/mm3 [place] # (Auto) (0.0-0.9) th/mm3 Eos # (Auto) (0.0-0.4) th/mm3 Baso # (Auto) (0.0-0.2) th/mm3 WBC Differential Differential Comment PT (9.8-11.6) sec INR Ratio APTT (24.3-30.1) sec Sodium (136-145) meq/L Potassium (3.5-5.1) meq/L Chloride (98-107) meq/L Carbon Dioxide (21.0-32.0) meq/L Anion Gap (5-15) meq/L BUN (7-18) mg/dL Creatinine (0.50-1.00) mg/dL Estimated GFR (>89) mL/min Random Glucose (74-106) mg/dL Calcium (8.5-10.1) mg/dL Total Bilirubin (0.2-1.0) mg/dL AST (15-37) U/L ALT (10-53) U/L Alkaline Phosphatase (45-117) U/L Total Creatine Kinase 68 (26-192) U/L Troponin I (0.02-0.05) ng/mL B-Natriuretic Peptide 1548 H (0-100) pg/mL Total Protein (6.4-8.2) g/dL Albumin (3.4-5.0) g/dL Urine Color Straw (Yellw/Straw) Urine Clarity Clear (Clear) Urine pH 5.0 (5.0-8.5) Ur Specific [place] 1.004 (1.002-1.035) Urine Protein Negative (Neg-Trace) mg/dL Urine Glucose (UA) Negative (Negative) mg/dL Urine Ketones Negative (Negative) mg/dL Urine Occult Blood Moderate H (Negative) Urine Nitrate Negative (Negative) Urine Bilirubin Negative (Negative) Urine Urobilinogen Less than 2 (Less than 2) mg/dL Ur Leukocyte Esterase Negative (Negative) Urine RBC 1 (0-3) /hpf Urine WBC Less than 1 (0-5) /hpf Ur Squamous Epith Cells <1 (0-5) /hpf Urine Mucus Few H (Occasional) /lpf Micro UA Comment Culture not ind Urine Culture Comments Culture not ind Imaging Data Radiologist's impression: ITS Impressions Chest X-Ray 05/07/18 15:09 CONCLUSION: Cardiomegaly with mild pulmonary edema pattern. Pacer leads in right atrium and right ventricle. Chest CTA 05/07/18 15:10 CONCLUSION: 1. Negative for pulmonary embolus. 2. Basilar airspace disease predominantly on the right side with small right effusion. 3. Remote granulomatous disease. 4. Pacer leads in right atrium and right ventricle. Right shoulder replacement. Discharge Plan Discharge Disposition Patient Disposition: 30 Still Patient Discharge Details Discharge Problem: CHF (congestive heart failure), Pleural effusion Physicians Team ED Provider: Jessica Candelario Primary Care Provider: Lorraine Mullen Attending Provider: Marva Arreola Discharge Interventions Interventions: Vital Signs Last Done: 05/07/18 18:28 Status ED Status: Admitted Patient
[2018-05-07] MEDS: Enoxaparin Inj 40 MG/0.4 ML Syringe SQ SCH (20:51)
[2018-05-07] MEDS ORDERED: Dextrose 50% in Water 50 ML Vial IV.PUSH PRN (21:01)
--- NOTE | 2018-05-07 21:08 | P.HP ---
History of Present Illness Service: [facility] Primary Care Physician: Lorraine Mullen MD Chief Complaint: Shortness of breath History of Present Illness: 83-year-old female with a past medical history significant for CHF, COPD, sarcoidosis, hypothyroidism, hypertension, hyperlipidemia, diabetes mellitus, aortic stenosis and coronary artery disease presents to the emergency department for the evaluation of 10 days of shortness of breath. This is the patient's third emergency room visit over the past 10 days. Her recycling operations manager is Dr. Davis. She recently DC'd her Lasix secondary to renal insufficiency. She reports that she has been having increasing dyspnea that is worse on exertion and that she saw her recycling operations manager who started her on Augmentin. She also complains of 3 days of substernal chest pressure. She denies any fever/ chills. No nausea/vomiting. No abdominal pain. She has had diarrhea 3 days. No lateralizing signs/symptoms. Inpatient Certification: I certify that the inpatient services were ordered in accordance with Medicare regulations governing the order. This includes certification that hospital inpatient services are reasonable and necessary and in the case of services not specified as inpatient-only under 42 CFR 419.22(n), that they are appropriately provided as inpatient services in accordance to with the 2-midnight benchmark under 43 CFR 412.3(e) Estimated Total Length of Stay (Days): 3 Plans for Post Hospital Care: Not yet determined Review of Systems All other systems reviewed negative except as stated in HPI [facility] - History History Provided By: Patient, Family Member - Medical History Medical History: Medical History (Last Updated 05/07/18 @ 20:53 by Marva Arreola MD) Aortic stenosis CAD (coronary artery disease) COPD (chronic obstructive pulmonary disease) Diabetes mellitus FHx: total knee replacement GERD (gastroesophageal reflux disease) High cholesterol Hypertension Pacemaker Sarcoidosis of lung Thyroid disease - Surgical History Surgical History: Surgical History (Last Updated 05/07/18 @ 20:54 by Marva Arreola MD) H/O cardiac catheterization H/O hernia repair H/O shoulder replacement H/O total hysterectomy History of appendectomy History of cholecystectomy Hx of cataract surgery - Tobacco History Smoking Status: Never smoker - Alcohol History How Often Do You Have a Drink Containing Alcohol: Never - Substance Use History Substance History: No History of Abuse - Travel History Recent Travel in the [place] Within the Last 8 Weeks: No - Immunization History Tetanus Immunization: Unsure Hx Influenza Vaccine This Season: Yes Medications and Allergies Active Medications: Active Medications Albuterol (Duoneb Neb (Prn)) 1 ampul NEB Q2HR NEB PRN PRN Reason: Shortness of Breath/Wheezing Enoxaparin Sodium (Lovenox Inj) 40 mg SQ Q24H CARLI Furosemide (Lasix Inj) 40 mg IV.PUSH BID@0900,1800 CARLI Potassium Chloride (Kcl) 10 meq PO BID CARLI Sodium Chloride (Ns Flush) 2 ml IV.FLUSH BID CARLI Sodium Chloride (Ns Flush) 2 ml IV.FLUSH UNSCH PRN PRN Reason: FLUSH AFTER USING IV ACCESS Allergies Allergy/AdvReac Type Severity Reaction Status Date / Time levofloxacin Allergy Severe RASH Verified 05/07/18 15:22 meperidine Allergy Severe ITCHING Verified 05/07/18 15:22 RASH morphine Allergy Severe ITCHING Verified 05/07/18 15:22 vancomycin Allergy Mild ITCHING, Verified 05/07/18 15:22 RASH cefdinir Allergy Unknown Itching Verified 05/07/18 15:22 amoxicillin Allergy Itching Verified 05/07/18 15:22 citalopram Allergy Itching Verified 05/07/18 15:22 hyoscyamine Allergy unknown Verified 05/07/18 15:22 Xecvlzo-Psy-Wlp Reductase Allergy Cramping Verified 05/07/18 15:22 Inhibitor of the Muscles Sulfa (Sulfonamide Allergy Difficulty Verified 05/07/18 15:22 Antibiotics) Breathing Home Medications Medication Instructions Recorded Confirmed Type Saccharomyces boulardii 500 mg PO BID 05/07/18 05/07/18 History albuterol sulfate [Ventolin HFA] 2 puff INHALATION Q4HR 05/07/18 05/07/18 History alprazolam 0.25 mg PO Q6H PRN 05/07/18 05/07/18 History amoxicillin-pot clavulanate 1 tab PO TID 05/07/18 05/07/18 History ascorbic acid (vitamin C) [Vitamin 500 mg PO DAILY 05/07/18 05/07/18 History C] aspirin [Aspirin Low Dose] 81 mg PO DAILY 05/07/18 05/07/18 History biotin 5 mg PO DAILY 05/07/18 05/07/18 History calcium polycarbophil 1,250 mg PO DAILY 05/07/18 05/07/18 History cetirizine [Zyrtec] 10 mg PO DAILY 05/07/18 05/07/18 History cholecalciferol (vitamin D3) 5,000 unit PO DAILY 05/07/18 05/07/18 History cinnamon bark [Cinnamon] 1,000 mg PO DAILY 05/07/18 05/07/18 History codeine-guaifenesin [Cheratussin 5 ml PO Q6H 05/07/18 05/07/18 History AC] coenzyme Q10 100 mg PO DAILY 05/07/18 05/07/18 History cyanocobalamin (vitamin B-12) 1,000 mcg PO DAILY 05/07/18 05/07/18 History dextromethorphan-guaifenesin 1 tab PO Q12H 05/07/18 05/07/18 History [Mucinex DM] dicyclomine 10 mg PO BID 05/07/18 05/07/18 History docusate sodium 200 mg PO DAILY 05/07/18 05/07/18 History fluticasone 2 spray INTRANASAL DAILY 05/07/18 05/07/18 History furosemide 20 mg PO DAILY 05/07/18 05/07/18 History levalbuterol HCl 1.25 mg INHALATION Q4-6H PRN 05/07/18 05/07/18 History levocetirizine 5 mg PO DAILY 05/07/18 05/07/18 History levothyroxine 50 mcg PO DAILY 05/07/18 05/07/18 History levothyroxine 75 mcg PO DAILY 05/07/18 05/07/18 History losartan 50 mg PO DAILY 05/07/18 05/07/18 History multivitamin [Multiple Vitamins] 1 tab PO DAILY 05/07/18 05/07/18 History ondansetron 4 mg PO Q6-8H PRN 05/07/18 05/07/18 History pantoprazole 40 mg PO DAILY 05/07/18 05/07/18 History prednisone 2 tab PO PER PKG DIR 05/07/18 05/07/18 History rosuvastatin 10 mg PO HS 05/07/18 05/07/18 History sennosides-docusate sodium [Senna 1 tab PO BID PRN 05/07/18 05/07/18 History Plus] tramadol 50 mg PO Q8HR 05/07/18 05/07/18 History Exam Vital signs: Vital Signs 05/07/18 14:31 05/07/18 15:16 05/07/18 15:24 Temperature 97.9 F Pulse Rate 80 77 78 Respiratory Rate 17 20 Blood Pressure 151/65 H 148/71 H Pulse Oximetry 91 L 92 L 05/07/18 15:25 05/07/18 15:41 05/07/18 18:28 Temperature Pulse Rate 83 Respiratory Rate 20 Blood Pressure 160/72 H Pulse Oximetry 94 L 93 L 96 05/07/18 20:09 Temperature Pulse Rate 92 H Respiratory Rate 20 Blood Pressure 163/70 H Pulse Oximetry 98 Intake & Output 05/07/18 05/07/18 05/08/18 06:59 18:59 06:59 Weight 72.575 kg Narrative: Gen.: No acute distress Head: Normocephalic. Atraumatic. EENT: Pupils equal round and reactive to light. Nose without drainage. Airway intact. Throat without injection. Cardiovascular: Regular rate and rhythm. No murmurs, rubs or gallops. Respiratory: Bilateral crackles at the bases. no wheezes or rhonchi. Abdomen: Soft, nontender, nondistended. No peritoneal signs. Musculoskeletal: No gross deformities. No edema. Skin: No obvious rashes or erythema. Neuro: Sensory and motor grossly intact. Cranial nerves II through XII grossly intact. Psych: Appropriate mood and affect Results - Labs CBC & Chem 7: 05/07/18 15:25 05/07/18 15:25 Labs: Laboratory Results - last 24 hr 05/07/18 05/07/18 05/07/18 15:25 15:25 15:25 WBC 8.8 RBC 3.89 L Hgb 11.9 Hct 35.5 MCV 91.3 MCH 30.7 MCHC 33.7 RDW 14.2 Plt Count 315 MPV 7.5 Neut % (Auto) 83.3 H Lymph % (Auto) 13.6 [place] % (Auto) 2.7 Eos % (Auto) 0.0 Baso % (Auto) 0.4 Neut # (Auto) 7.3 Lymph # (Auto) 1.2 [place] # (Auto) 0.2 Eos # (Auto) 0.0 Baso # (Auto) 0.0 WBC Differential . Differential Comment Auto diff final PT 11.6 INR 1.1 APTT 26.0 Sodium 142 Potassium 4.0 Chloride 105 Carbon Dioxide 27.3 Anion Gap 10 BUN 15 Creatinine 1.09 H Estimated GFR 48 L Random Glucose 165 H Calcium 8.5 Total Bilirubin 0.5 AST 13 L ALT 24 Alkaline Phosphatase 71 Total Creatine Kinase Troponin I Less than 0.02 L B-Natriuretic Peptide Total Protein 6.8 Albumin 3.5 Urine Color Urine Clarity Urine pH Ur Specific [place] Urine Protein Urine Glucose (UA) Urine Ketones Urine Occult Blood Urine Nitrate Urine Bilirubin Urine Urobilinogen Ur Leukocyte Esterase Urine RBC Urine WBC Ur Squamous Epith Cells Urine Mucus Micro UA Comment Urine Culture Comments 05/07/18 05/07/18 05/07/18 15:25 15:25 16:00 WBC RBC Hgb Hct MCV MCH MCHC RDW Plt Count MPV Neut % (Auto) Lymph % (Auto) [place] % (Auto) Eos % (Auto) Baso % (Auto) Neut # (Auto) Lymph # (Auto) [place] # (Auto) Eos # (Auto) Baso # (Auto) WBC Differential Differential Comment PT INR APTT Sodium Potassium Chloride Carbon Dioxide Anion Gap BUN Creatinine Estimated GFR Random Glucose Calcium Total Bilirubin AST ALT Alkaline Phosphatase Total Creatine Kinase 68 Troponin I B-Natriuretic Peptide 1548 H Total Protein Albumin Urine Color Straw Urine Clarity Clear Urine pH 5.0 Ur Specific [place] 1.004 Urine Protein Negative Urine Glucose (UA) Negative Urine Ketones Negative Urine Occult Blood Moderate H Urine Nitrate Negative Urine Bilirubin Negative Urine Urobilinogen Less than 2 Ur Leukocyte Esterase Negative Urine RBC 1 Urine WBC Less than 1 Ur Squamous Epith Cells <1 Urine Mucus Few H Micro UA Comment Culture not ind Urine Culture Comments Culture not ind - Imaging Impressions Chest X-Ray 05/07/18 15:09 CONCLUSION: Cardiomegaly with mild pulmonary edema pattern. Pacer leads in right atrium and right ventricle. Chest CTA 05/07/18 15:10 CONCLUSION: 1. Negative for pulmonary embolus. 2. Basilar airspace disease predominantly on the right side with small right effusion. 3. Remote granulomatous disease. 4. Pacer leads in right atrium and right ventricle. Right shoulder replacement. Caprini VTE Risk Assessment Caprini VTE Risk Assessment: Moderate/High Risk (score >= 2) Caprini Risk Assessment Model: Point Value = 1 Point Value = 2 Point Value = 3 Point Value = 5 Age 41-60 Minor surgery BMI > 25 kg/m2 Swollen legs Varicose veins or History of unexplained or recurrent spontaneous Oral contraceptives or hormone replacement Sepsis (< 1 month) Serious lung disease, including pneumonia (< 1 month) Abnormal pulmonary function Acute myocardial infarction Congestive heart failure (< 1 month) History of inflammatory bowel disease Medical patient at bed rest Age 61-74 Arthroscopic surgery Major open surgery (> 45 min) Laparoscopic surgery (> 45 min) Malignancy Confined to bed (> 72 hours) Immobilizing plaster cast Central venous access Age >= 75 History of VTE Family history of VTE Factor V Leiden Prothrombin [id number] Lupus anticoagulant Anticardiolipin antibodies Elevated serum homocysteine Heparin-induced thrombocytopenia Other congenital or acquired thrombophilia Stroke (< 1 month) Elective arthroplasty Hip, pelvis, or leg fracture Acute spinal cord injury (< 1 month) Prophylaxis Regimen: Total Risk Factor Score Risk Level Prophylaxis Regimen 0-1 Low Early ambulation 2 Moderate Order ONE of the following: *Sequential Compression Device (SCD) *Heparin 5000 units SQ BID 3-4 Higher Order ONE of the following medications: *Heparin 5000 units SQ TID *Enoxaparin/Lovenox 40 mg SQ daily (WT < 150 kg, CrCl > 30 mL/min) *Enoxaparin/Lovenox 30 mg SQ daily (WT < 150 kg, CrCl > 10-29 mL/min) *Enoxaparin/Lovenox 30 mg SQ BID (WT < 150 kg, CrCl > 30 mL/min) AND/OR *Sequential Compression Device (SCD) 5 or more Highest Order ONE of the following medications: *Heparin 5000 units SQ TID (Preferred with Epidurals) *Enoxaparin/Lovenox 40 mg SQ daily (WT < 150 kg, CrCl > 30 mL/min) *Enoxaparin/Lovenox 30 mg SQ daily (WT < 150 kg, CrCl > 10-29 mL/min) *Enoxaparin/Lovenox 30 mg SQ BID (WT < 150 kg, CrCl > 30 mL/min) AND *Sequential Compression Device (SCD) Assessment and Plan - Plan Assessment/plan: 1. Shortness of breath/CHF exacerbation/COPD/sarcoidosis BNP elevated, suspect CHF exacerbation as chest x-ray significant for pulmonary edema Duo nebs Supplemental oxygen as needed IV Lasix -patient recently had Lasix discontinued secondary to kidney injury Patient's recycling operations manager, Dr. Davis consulted, appreciate recommendations 2. Chest pain/pressure Initial troponin negative EKG pending ACS rule out pending; serial troponins/EKGs 3. Coronary artery disease/aortic stenosis Patient currently undergoing workup for possible TAVR Continue home medications once reconciled 4. Diabetes mellitus Patient previously on metformin, discontinued secondary to kidney injury Sliding-scale insulin Monitor blood glucose 5. Hypertension/hyperlipidemia/hypothyroidism Continue home medications once reconciled FEN N.p.o. Electrolytes: Monitor and replete as needed Lovenox
[2018-05-07] MEDS: Potassium Chloride 10 MEQ ER Capsule PO SCH ×2 (21:13→22:21)
[2018-05-07 23:37] LABS: Creatine Kinase 62 U/L (26-192)
[2018-05-08] MEDS: Insulin NovoLOG Aspart Correctional Sugar Inj SQ SCH ×5 (03:10→21:27)
[2018-05-08 05:48] LABS: Baso % (Auto) 0.7 % (0.0-2.0); Eos % (Auto) 0.3 % (0.0-4.0); Hematocrit 35.5 % (35.0-46.0); Hemoglobin 12.2 gm/dL (11.6-15.3); Lymph % (Auto) 38.6 % (9.0-44.0); Mean Corpuscular HGB Conc 34.3 % (32.0-36.0); Mean Corpuscular Hemoglobin 31.2 pg (27.0-34.0); Mean Corpuscular Volume 91.1 fL (80.0-100.0); Mean Platelet Volume 8.1 fL (7.0-11.0); Neut % (Auto) 50.4 % (16.0-70.0); Platelet Count 320 th/mm3 (150-450); White Blood Count 9.9 th/mm3 (4.0-11.0)
[2018-05-08 05:49] LABS: Baso # (Auto) 0.1 th/mm3 (0.0-0.2); Lymph # (Auto) 3.8 th/mm3 (1.0-4.8)
[2018-05-08 06:00] LABS: Calcium 8.8 mg/dL (8.5-10.1); Carbon Dioxide 30.7 meq/L (21.0-32.0); Potassium 3.4 meq/L (3.5-5.1)
[2018-05-08 06:04] LABS: Troponin I 0.03 ng/mL (0.02-0.05)
[2018-05-08] MEDS: Potassium Chloride 10 MEQ ER Capsule PO SCH ×2 (09:56→18:25)
--- NOTE | 2018-05-08 09:57 | ECG ---
Date Performed: 05/07/2018 Time Performed: 22:40:30 PTAGE: 83 years EKG: ELECTRONIC VENTRICULAR PACEMAKER ABNORMAL RHYTHM ECG Since the PREVIOUS TRACING , no significant change noted PREVIOUS TRACIN01/11/2014 20.10 DOCTOR: Mike Rodriguez Interpretating Date/Time 05/08/2018 09:53:56
[2018-05-08] MEDS ORDERED: RESP: Levalbuterol 1.25 MG/3 ML Neb (PRN) NEB (12:42)
[2018-05-08] MEDS ORDERED: Senna/Docusate Sodium 8.6/50 MG Tablet PO PRN (12:42)
[2018-05-08] MEDS ORDERED: ALPRAZolam 0.25 MG Tablet PO PRN (12:42)
--- NOTE | 2018-05-08 13:57 | ECG ---
Date Performed: 05/08/2018 Time Performed: 02:54:52 PTAGE: 83 years EKG: VENTRICULAR PACED RYTHMN Since the previous tracing, no significant change noted Abnormal E CG PREVIOUS TRACING : 05/07/2018 22.40 DOCTOR: Mike Rodriguez Interpretating Date/Time 05/08/2018 13:57:18
[2018-05-08] MEDS: Amoxicillin/Clavulanate 875/125 MG Tablet PO SCH ×2 (15:49→21:26)
[2018-05-08] MEDS ORDERED: Non-Formulary Drug (Albuterol Sulfate 2 PUFF) INHALATION SCH (16:00)
--- NOTE | 2018-05-08 17:17 | P.PN ---
Subjective Interval history: feeling better no discomfort no abdoiminal pain- no diarrhea now - earlier reported loose stools Physical Exam Vital signs: Vital Signs 05/07/18 18:28 05/07/18 20:09 05/07/18 21:14 Temperature Pulse Rate 83 92 H Respiratory Rate 20 20 Blood Pressure 160/72 H 163/70 H Pulse Oximetry 96 98 98 05/08/18 00:00 05/08/18 00:52 05/08/18 04:00 Temperature 97.6 F 97.6 F Pulse Rate 73 78 79 Respiratory Rate 18 20 18 Blood Pressure 146/63 H 142/76 H Pulse Oximetry 94 L 92 L 98 05/08/18 08:00 05/08/18 09:04 05/08/18 12:00 Temperature 97.2 F L 97.8 F Pulse Rate 74 79 Respiratory Rate 20 20 Blood Pressure 169/74 H 184/77 H Pulse Oximetry 96 93 L Intake & Output 05/07/18 05/08/18 05/08/18 18:59 06:59 18:59 Intake Total 240 / 240 Balance 240 / 240 Weight 72.575 kg 68.9 kg Intake: Oral 240 / 240 Other: # Incontinent Voids 2 Date of Last Bowel Movement 05/07/18 Weight On Admission 69.6 kg Narrative: awake and alert, oriented x 3 no acute distress, on 02 NC anicteric lungs- decreased breath sounds, no rales regular rhythm, paced on temetry, soft 3/6 systolicnmurmur left sternal border abdomen soft, nontendere extremities no edema neuro exam- nonfocal Results - Labs CBC & Chem 7: 05/08/18 04:30 05/08/18 04:30 Laboratory Results - last 24 hr 05/07/18 05/07/18 05/07/18 15:25 15:25 22:47 WBC RBC Hgb Hct MCV MCH MCHC RDW Plt Count MPV Neut % (Auto) Lymph % (Auto) [place] % (Auto) Eos % (Auto) Baso % (Auto) Neut # (Auto) Lymph # (Auto) [place] # (Auto) Eos # (Auto) Baso # (Auto) WBC Differential Differential Comment Sodium Potassium Chloride Carbon Dioxide Anion Gap BUN Creatinine Estimated GFR POC Glucose Random Glucose Calcium Magnesium 1.6 Total Creatine Kinase 62 Troponin I Less than 0.02 L B-Natriuretic Peptide 1548 H 05/08/18 05/08/18 05/08/18 02:50 04:30 04:30 WBC 9.9 RBC 3.90 L Hgb 12.2 Hct 35.5 MCV 91.1 MCH 31.2 MCHC 34.3 RDW 14.0 Plt Count 320 MPV 8.1 Neut % (Auto) 50.4 Lymph % (Auto) 38.6 [place] % (Auto) 10.0 H Eos % (Auto) 0.3 Baso % (Auto) 0.7 Neut # (Auto) 5.0 Lymph # (Auto) 3.8 [place] # (Auto) 1.0 H Eos # (Auto) 0.0 Baso # (Auto) 0.1 WBC Differential . Differential Comment Auto diff final Sodium 144 Potassium 3.4 L Chloride 103 Carbon Dioxide 30.7 Anion Gap 10 BUN 14 Creatinine 0.93 Estimated GFR 58 L POC Glucose 105 Random Glucose 83 Calcium 8.8 Magnesium Total Creatine Kinase 67 Troponin I 0.03 B-Natriuretic Peptide 05/08/18 05/08/18 07:46 11:50 WBC RBC Hgb Hct MCV MCH MCHC RDW Plt Count MPV Neut % (Auto) Lymph % (Auto) [place] % (Auto) Eos % (Auto) Baso % (Auto) Neut # (Auto) Lymph # (Auto) [place] # (Auto) Eos # (Auto) Baso # (Auto) WBC Differential Differential Comment Sodium Potassium Chloride Carbon Dioxide Anion Gap BUN Creatinine Estimated GFR POC Glucose 89 87 Random Glucose Calcium Magnesium Total Creatine Kinase Troponin I B-Natriuretic Peptide - Imaging Impressions Chest CTA 05/07/18 15:10 CONCLUSION: 1. Negative for pulmonary embolus. 2. Basilar airspace disease predominantly on the right side with small right effusion. 3. Remote granulomatous disease. 4. Pacer leads in right atrium and right ventricle. Right shoulder replacement. Assessment and Plan - Plan 83 years old female 1. Shortness of breath/CHF exacerbation history of underlying CAD Hypertension- elevated readings S/P PM in place Aortic stenosis - plan for TAVR eventually per Dr. masterson in the futures BNP elevated, suspect CHF exacerbation as chest x-ray significant for pulmonary edema Duo nebs Supplemental oxygen as needed IV Lasix bid -and monitor renal functions Dr. Masterson ff patient- plan for PCI as OP EKG paced rhythm, troponins negative monitor renal functions on diuretics add BB- Coreg 3.125 mg po bid- for CHF and additional BP control 2. History of sarcoidosis and liklye udnerlying restrictive lung diseaseDr. White ff will do 02 walk test prior to DC- likely qualify steroids maintenance restart on augmentin 3. Diabetes mellitus Patient previously on metformin, discontinued secondary to kidney injury Sliding-scale insulin Monitor blood glucose 5. Hypertension/hyperlipidemia/hypothyroidism Continue home medications FEN diet walk test prior to DC Lovenox
[2018-05-08] MEDS: Loperamide 2 MG Capsule PO PRN (19:20)
[2018-05-08] MEDS ORDERED: SACCHAROMYCES BOULARDII 500 MG PO SCH (21:00)
[2018-05-08] MEDS ORDERED: Carvedilol 6.25 MG Tablet PO SCH (21:00)
[2018-05-08] MEDS: Enoxaparin Inj 40 MG/0.4 ML Syringe SQ SCH (21:27)
[2018-05-08] MEDS: Dicyclomine 10 MG Capsule PO SCH (21:27)
[2018-05-09] MEDS: Insulin NovoLOG Aspart Correctional Sugar Inj SQ SCH ×5 (02:59→20:24)
[2018-05-09] MEDS: Potassium Chloride 10 MEQ ER Capsule PO SCH ×2 (05:03→18:53)
--- NOTE | 2018-05-09 06:29 | MB ---
cc: Dilan Michelle DO DATE: 05/09/2018 REASON FOR CONSULTATION: Chest pain. HISTORY OF PRESENT ILLNESS: Feli Abraham is a pleasant 83-year-old female who sees my partner, Dr. Freeman, in the office and presented due to chest pain and shortness of breath. She previously underwent cardiac catheterization and during this was found to have severe aortic stenosis, moderate mitral stenosis and significant disease of her LAD. She is being currently worked up for PCI and consideration of TAVR. She has had chest pain, which hurts more when she coughs in the left lower side of her ribs. She has also noticed increased dyspnea and found to have pneumonia. She has been seeing her nightman, Dr. Davis for this and was started on Augmentin. As she had chest pain, she decided she should come into the emergency room. In seeing her, she is currently hemodynamically stable with chest pain only when she coughs. PAST MEDICAL HISTORY: 1. Aortic stenosis. 2. Coronary artery disease. 3. Chronic obstructive pulmonary disease. 4. Diabetes. 5. GERD. 6. Hyperlipidemia. 7. Hypertension. 8. Sarcoidosis. 9. Thyroid disease. PAST SURGICAL HISTORY: 1. Cardiac catheterization (04/06/2018) with normal left main, LAD 90% in the proximal portion, 80% in the mid portion. Ramus with mild luminal irregularities. Left circumflex with mild luminal irregularities. RCA with mild luminal irregularities. Severe aortic stenosis (mean gradient 56, aortic valve area 0.57), moderate mitral stenosis (mean gradient 85). 2. Hernia repair. 3. Shoulder replacement. 4. Total hysterectomy. 5. Appendectomy. 6. Cholecystectomy. 7. Cataract surgery. 8. Placement of a Biotronik pacemaker (model #[id number], serial #[id number], 01/07/2014). ALLERGIES: LEVOFLOXACIN, MEPERIDINE, MORPHINE, ____, CEFDINIR, AMOXICILLIN, CITALOPRAM, HYOSCYAMINE, STATINS, AND SULFA. MEDICATIONS: 1. Prednisone 20 mg daily. 2. Doxycycline 500/125 t.i.d. 3. Tramadol 50 mg every 8 hours. 4. Crestor 10 mg every night. 5. Protonix 40 mg daily. 6. Zofran 4 mg every 6-8 hours as needed for nausea or vomiting. 7. Synthroid 125 mcg daily. 8. Levocetirizine 5 mg daily. 9. Albuterol nebulizer. 10. Lasix 20 mg daily. 11. Fluticasone 50 mcg daily. 12. Dicyclomine 10 mg b.i.d. 13. Biotin 5 mg daily. 14. Aspirin 81 mg daily. 15. Xanax 0.25 mg every 6 hours as needed for anxiety. 16. Cetirizine 10 mg daily. 17. Losartan 50 mg daily. 18. Coenzyme Q10 100 mg daily. FAMILY HISTORY: Denies premature coronary artery disease or sudden cardiac within the family. SOCIAL HISTORY: Denies tobacco, alcohol or drug abuse. REVIEW OF SYSTEMS: Fourteen systems were reviewed including osteopathic. Pertinent positives and negatives above, otherwise negative. PHYSICAL EXAMINATION: VITAL SIGNS: Temperature 97.4, heart rate 80, blood pressure 124/59, respirations 20, pulse oximetry 95% on 3 liters. GENERAL: The patient appears well, in no acute distress, alert, awake and oriented x 3. HEENT: Extraocular muscles intact. Mucous membranes are moist. NECK: Supple. No JVD at 45 degrees. No carotid bruits heard bilaterally. Carotid upstroke is brisk in nature. HEART: Regular rate and rhythm. Positive III/ crescendo decrescendo murmur to the right sternal border. LUNGS: Decreased breath sounds at bilateral bases with mild rhonchi. ABDOMEN: Soft, nontender, nondistended. No organomegaly noted. EXTREMITIES: Show no clubbing, cyanosis or edema. Femoral and distal pulses are intact bilaterally. NEUROLOGIC: No focal deficits. SKIN: Warm, dry and intact. OSTEOPATHIC: Mild kyphoscoliosis. No lordosis or paraspinal tender points. LABORATORY DATA: Hemoglobin 12.2, hematocrit 35.5, platelets 320. Potassium 3.4, BUN 14, creatinine 0.93. Troponin negative x 3. Electrocardiogram (05/08/2018 at 0254), normal sinus rhythm with ventricular pacing. IMPRESSION: 1. Shortness of breath. 2. Congestive heart failure exacerbation. 3. Pneumonia. 4. Chest pain due to musculoskeletal cause. 5. Severe aortic stenosis. 6. Coronary artery disease. 7. History of sarcoidosis. 8. Diabetes mellitus. 9. Hypertension. 10. Hyperlipidemia. RECOMMENDATIONS: 1. Ms. Abraham presented with chest pain and this appears to be musculoskeletal, as it hurts more with coughing. 2. Her shortness of breath may be due to pneumonia, but she also appears to be somewhat in heart failure. We will continue to diurese her. She previously was on Lasix daily, but this was stopped by her primary care physician a long time ago, per her, due to her kidney function worsening. Overall, I think that she needs to be discharged on Lasix daily. 3. Overall, I think it would be best if she got over her current pneumonia before we underwent PCI and consideration of TAVR. She will continue to be followed during her hospitalization and if it is felt that her intervention needs to be done at this time for her LAD, then we will do it, but I would prefer this to be scheduled electively outpatient when she is more up to the procedure. Thank you for allowing me to see Feli Abraham. If there are any questions, please do not hesitate to call. Dilan Michelle, DO [facility] , 12:38 AM , 06:27 AM
[2018-05-09 08:14] LABS: Calcium 9.2 mg/dL (8.5-10.1); Carbon Dioxide 29.5 meq/L (21.0-32.0); Potassium 3.9 meq/L (3.5-5.1)
[2018-05-09] MEDS: Amoxicillin/Clavulanate 875/125 MG Tablet PO SCH (08:47)
[2018-05-09] MEDS: Levothyroxine 75 MCG Tablet PO SCH (08:48)
[2018-05-09] MEDS: Dicyclomine 10 MG Capsule PO SCH ×2 (08:48→20:23)
[2018-05-09] MEDS: Ascorbic Acid 500 MG Tablet PO SCH (08:48)
[2018-05-09] MEDS: Loperamide 2 MG Capsule PO PRN ×2 (08:49→16:41)
[2018-05-09] MEDS: Carvedilol 6.25 MG Tablet PO SCH ×2 (08:50→20:23)
--- NOTE | 2018-05-09 11:23 | P.PN ---
Subjective Interval history: feels well no complains voiding well d/w creatinine results- we need to back off on diuretics Physical Exam Vital signs: Vital Signs 05/08/18 12:00 05/08/18 16:00 05/08/18 20:00 Temperature 97.8 F 97.4 F L Pulse Rate 79 84 86 Respiratory Rate 20 20 Blood Pressure 184/77 H 124/59 L Pulse Oximetry 92 L 92 L 05/08/18 21:00 05/08/18 21:54 05/09/18 00:00 Temperature 98.0 F 97.3 F L Pulse Rate 90 81 80 Respiratory Rate 14 18 18 Blood Pressure 136/66 92/54 L Pulse Oximetry 95 92 L 92 L 05/09/18 04:00 05/09/18 08:00 05/09/18 08:47 Temperature 97.6 F 99.0 F Pulse Rate 82 86 84 Respiratory Rate 18 20 14 Blood Pressure 124/63 158/67 H Pulse Oximetry 92 L 91 L 98 Intake & Output 05/08/18 05/09/18 05/09/18 18:59 06:59 18:59 Intake Total 480 / 480 120 / 120 Balance 480 / 480 120 / 120 Weight 67.7 kg Intake: Oral 480 / 480 120 / 120 Other: Post Void Residual 1,700 # Voids 2 Date of Last Bowel Movement 05/07/18 # Bowel Movements 1 1 Narrative: anictericlungs- no rales decreased breath sounds regula rrhythm, 2/6 systolic murmur left sternal border abdomen soft, nontender extremities no edema Results - Labs CBC & Chem 7: 05/10/18 05:30 05/10/18 05:30 Laboratory Results - last 24 hr 05/08/18 05/08/18 05/08/18 11:50 16:52 18:30 Sodium Potassium Chloride Carbon Dioxide Anion Gap BUN Creatinine Estimated GFR POC Glucose 87 111 H Random Glucose Calcium Stl C.difficile Tox PCR Negative St C. diff Tox Epid 027 Negative 05/08/18 05/09/18 05/09/18 19:38 02:24 06:45 Sodium 140 Potassium 3.9 Chloride 99 Carbon Dioxide 29.5 Anion Gap 12 BUN 20 H Creatinine 1.36 H Estimated GFR 37 L POC Glucose 123 H 115 H Random Glucose 117 H Calcium 9.2 Stl C.difficile Tox PCR St C. diff Tox Epid 027 05/09/18 07:35 Sodium Potassium Chloride Carbon Dioxide Anion Gap BUN Creatinine Estimated GFR POC Glucose 137 H Random Glucose Calcium Stl C.difficile Tox PCR St C. diff Tox Epid 027 - Imaging Impressions Chest X-Ray 05/07/18 15:09 CONCLUSION: Cardiomegaly with mild pulmonary edema pattern. Pacer leads in right atrium and right ventricle. Chest CTA 05/07/18 15:10 CONCLUSION: 1. Negative for pulmonary embolus. 2. Basilar airspace disease predominantly on the right side with small right effusion. 3. Remote granulomatous disease. 4. Pacer leads in right atrium and right ventricle. Right shoulder replacement. Assessment and Plan - Plan 83 years old female 1. Shortness of breath/CHF exacerbation history of underlying CAD Hypertension- elevated readings S/P PM in place Aortic stenosis - plan for TAVR eventually per Dr. masterson in the futures BNP elevated, suspect CHF exacerbation as chest x-ray significant for pulmonary edema Duo nebs Supplemental oxygen as needed IV Lasix bid -and monitor renal functions- HOLD today with increase creatinine Dr. Masterson ff patient- plan for PCI as OP EKG paced rhythm, troponins negative monitor renal functions on diuretics- will hold due to increase in creatinine added BB- Coreg 3.125 mg po bid- for CHF and additional BP control 2. History of sarcoidosis and gypsy taverasnerlying restrictive lung diseaseDr. Susan mckinnon will do 02 walk test prior to DC- likely qualify steroids maintenance restart on augmentin- Dr. peres ff 3. Diabetes mellitus Patient previously on metformin, discontinued secondary to kidney injury Sliding-scale insulin Monitor blood glucose 5. Hypertension/hyperlipidemia/hypothyroidism Continue home medications 6. ACute Kidney- per patient was on lasix daily in the past and was DC due to increasing creatinine - hold IV Lasix 40 mg bid since 05/09 - gently hydrate x 42 cc/hr a 1 L only - give another 1L - Npehrology ff FEN diet walk test prior to DC Lovenox
[2018-05-09] MEDS ORDERED: Sod Chloride 0.9% Inj 1,000 ML IV.CONT SCH (11:30)
[2018-05-09] MEDS: Docusate Sodium 100 MG Capsule PO SCH (11:39)
--- NOTE | 2018-05-09 12:36 | P.CONNP ---
History of Present Illness Service: Nephrology Consult date: 05/09/18 Requesting Physician: Callum Schultz Reason for Consult: LOULOU Primary Care Provider: Lorraine Mullen MD Chief Complaint: Shortness of breath History of Present Illness: The patient is an 83-year-old [place] female with significant past medical history of severe aortic stenosis, mitral stenosis, COPD, and diabetes, hypertension, GERD, sarcoidosis of the lung, pacer placement who presented to the emergency department on May 07 with a 10 day complaint of shortness of breath. This will be her third hospital visit/ER visit in the past month. Reports that she was recently started on Augmentin by her government minister given her continued pulmonary complaints. Says that she was previously taking Lasix daily, but this was recently held as per patient because she developed acute renal decline. Is unaware of any chronic kidney disease. She underwent a cardiac catheterization on April 07 showing severe aortic valve and mitral valve stenosis with recommendations of potential repair in the future including either bypass grafting or PCI of LAD. Ejection fraction appears to be fairly well preserved at 55%. We have been consulted regarding renal decline. Her admitting serum creatinine was 1.09 with an estimated GFR of 48 that worsened to a serum creatinine of 1.36 with estimated GFR of 37 at time of consult. She had previous serum creatinine of 1.1 with an estimated GFR 47 on April 06. Review of Systems Cardiovascular: Reports shortness of breath Respiratory: Reports cough, Reports shortness of breath, Reports wheezing PMFSH - History History Provided By: Patient - Medical History Medical History: Medical History (This Medical Record has been edited. Action required.) Aortic stenosis CAD (coronary artery disease) COPD (chronic obstructive pulmonary disease) Diabetes mellitus FHx: total knee replacement GERD (gastroesophageal reflux disease) High cholesterol Hypertension Pacemaker Sarcoidosis of lung Thyroid disease - Surgical History Surgical History: Surgical History (This Medical Record has been edited. Action required.) H/O cardiac catheterization H/O hernia repair H/O shoulder replacement H/O total hysterectomy History of appendectomy History of cholecystectomy Hx of cataract surgery - Tobacco History Second Hand Smoke Exposure: No Smoking Status: Never smoker - Alcohol History How Often Do You Have a Drink Containing Alcohol: Never - Substance Use History Substance History: No History of Abuse - Travel History Recent Travel in the [place] Within the Last 8 Weeks: No - Immunization History Tetanus Immunization: Unsure Hx Influenza Vaccine This Season: Yes Medications and Allergies Active Medications: Active Medications Albuterol (Duoneb Neb (Prn)) 1 ampul NEB Q2HR NEB PRN PRN Reason: Shortness of Breath/Wheezing Last Admin: 05/08/18 00:52 Dose: 1 ampul Alprazolam (Xanax) 0.25 mg PO Q6H PRN PRN Reason: Anxiety Amoxicillin/Clavulanate Potassium (Augmentin 875/125 Mg) 1 tab PO Q12HR [facility] Last Admin: 05/09/18 08:47 Dose: 1 tab Ascorbic Acid (Vitamin C) 500 mg PO DAILY [facility] Last Admin: 05/09/18 08:48 Dose: 500 mg Aspirin (Ecotrin) 81 mg PO DAILY [facility] Last Admin: 05/09/18 08:48 Dose: 81 mg Atorvastatin Calcium (Lipitor) 20 mg PO HS [facility] Last Admin: 05/08/18 21:26 Dose: 20 mg Calcium Polycarbophil (Fiber Con) 1,250 mg PO DAILY [facility] Last Admin: 05/09/18 11:39 Dose: Not Given Carvedilol (Coreg) 3.125 mg PO BID [facility] Last Admin: 05/09/18 08:50 Dose: 3.125 mg Cetirizine HCl (Zyrtec) 10 mg PO DAILY [facility] Last Admin: 05/09/18 08:48 Dose: 10 mg Cyanocobalamin (Vitamin B12) 1,000 mcg PO DAILY [facility] Last Admin: 05/09/18 08:48 Dose: 1,000 mcg Dextrose (D50w Vial) 50 ml IV.PUSH UNSCH PRN PRN Reason: PER HYPOGLYCEMIA PROTOCOL Dicyclomine HCl (Bentyl) 10 mg PO BID [facility] Last Admin: 05/09/18 08:48 Dose: 10 mg Docusate Sodium (Colace) 200 mg PO DAILY [facility] Last Admin: 05/09/18 11:39 Dose: Not Given Enoxaparin Sodium (Lovenox Inj) 40 mg SQ Q24H [facility] Last Admin: 05/08/18 21:27 Dose: 40 mg Fluticasone Propionate (Flonase Nasal [place]) 2 spray EACH NARE DAILY [facility] Last Admin: 05/09/18 08:47 Dose: 2 spray Glucagon (Glucagon Inj) 1 mg OTHER PRN PRN PRN Reason: for Hypoglycemia Protocol Sodium Chloride (Ns Inj) 1,000 mls @ 42 mls/hr IV.CONT .[id number] [facility] Stop: 05/10/18 11:18 Last Admin: 05/09/18 12:12 Dose: 42 mls/hr Insulin Aspart (Novolog Insulin Suppl Scale Inj) 0 unit SQ ACHS AND 3AM CARLI; Protocol Last Admin: 05/09/18 11:39 Dose: Not Given Ipratropium [place] (Atrovent Neb) 0.5 mg NEB TID NEB [facility] Last Admin: 05/09/18 08:31 Dose: 0.5 mg Levalbuterol HCl (Xopenex Neb) 1.25 mg NEB Q4HR NEB PRN PRN Reason: Shortness Of Breath Levothyroxine Sodium (Synthroid) 50 mcg PO [place]@0900 [facility] Levothyroxine Sodium (Synthroid) 75 mcg PO MoTuWeThFrSa@0900 [facility] Last Admin: 05/09/18 08:48 Dose: 75 mcg Loperamide HCl (Imodium) 2 mg PO Q6H PRN PRN Reason: DIARRHEA Last Admin: 05/09/18 08:49 Dose: 2 mg Losartan Potassium (Cozaar) 50 mg PO DAILY [facility] Last Admin: 05/09/18 08:49 Dose: 50 mg Multivitamins (Theragran) 1 tab PO DAILY [facility] Last Admin: 05/09/18 08:50 Dose: 1 tab Pantoprazole Sodium (Protonix) 40 mg PO DAILY [facility] Last Admin: 05/09/18 08:48 Dose: 40 mg Potassium Chloride (Kcl) 20 meq PO Q12H [facility] Last Admin: 05/09/18 05:03 Dose: 20 meq Senna/Docusate Sodium (Hilda-Colace) 1 tab PO BID PRN PRN Reason: Constipation Sodium Chloride (Ns Flush) 2 ml IV.FLUSH BID [facility] Last Admin: 05/09/18 09:14 Dose: 2 ml Sodium Chloride (Ns Flush) 2 ml IV.FLUSH UNSCH PRN PRN Reason: FLUSH AFTER USING IV ACCESS Vitamin D (Vitamin D3) 5,000 unit PO DAILY [facility] Last Admin: 05/09/18 08:49 Dose: 5,000 unit Allergies Allergy/AdvReac Type Severity Reaction Status Date / Time vancomycin Allergy Mild ITCHING, Verified 05/09/18 10:23 RASH amoxicillin Allergy Unknown Verified 05/09/18 10:23 cefdinir Allergy Unknown Verified 05/09/18 10:23 citalopram Allergy Unknown Verified 05/09/18 10:23 hyoscyamine Allergy Unknown Verified 05/09/18 10:23 levofloxacin Allergy Unknown Verified 05/09/18 10:23 meperidine Allergy Unknown Verified 05/09/18 10:23 morphine Allergy Unknown Verified 05/09/18 10:23 Saddvsf-Hra-Zrz Reductase Allergy Unknown Verified 05/09/18 10:23 Inhibitor Sulfa (Sulfonamide Allergy Unknown Verified 05/09/18 10:23 Antibiotics) sulfamethoxazole Allergy Unknown Verified 05/09/18 10:23 trimethoprim Allergy Unknown Verified 05/09/18 10:23 Home Medications Medication Instructions Recorded Confirmed Type Saccharomyces boulardii 500 mg PO BID 05/07/18 05/07/18 History albuterol sulfate [Ventolin HFA] 2 puff INHALATION Q4HR 05/07/18 05/07/18 History alprazolam 0.25 mg PO Q6H PRN 05/07/18 05/07/18 History amoxicillin-pot clavulanate 1 tab PO TID 05/07/18 05/07/18 History ascorbic acid (vitamin C) [Vitamin 500 mg PO DAILY 05/07/18 05/07/18 History C] aspirin [Aspirin Low Dose] 81 mg PO DAILY 05/07/18 05/07/18 History biotin 5 mg PO DAILY 05/07/18 05/07/18 History calcium polycarbophil 1,250 mg PO DAILY 05/07/18 05/07/18 History cetirizine [Zyrtec] 10 mg PO DAILY 05/07/18 05/07/18 History cholecalciferol (vitamin D3) 5,000 unit PO DAILY 05/07/18 05/07/18 History cinnamon bark [Cinnamon] 1,000 mg PO DAILY 05/07/18 05/07/18 History codeine-guaifenesin [Cheratussin 5 ml PO Q6H 05/07/18 05/07/18 History AC] coenzyme Q10 100 mg PO DAILY 05/07/18 05/07/18 History cyanocobalamin (vitamin B-12) 1,000 mcg PO DAILY 05/07/18 05/07/18 History dextromethorphan-guaifenesin 1 tab PO Q12H 05/07/18 05/07/18 History [Mucinex DM] dicyclomine 10 mg PO BID 05/07/18 05/07/18 History docusate sodium 200 mg PO DAILY 05/07/18 05/07/18 History fluticasone 2 spray INTRANASAL DAILY 05/07/18 05/07/18 History furosemide 20 mg PO DAILY 05/07/18 05/07/18 History levalbuterol HCl 1.25 mg INHALATION Q4-6H PRN 05/07/18 05/07/18 History levocetirizine 5 mg PO DAILY 05/07/18 05/07/18 History levothyroxine 50 mcg PO DAILY 05/07/18 05/07/18 History levothyroxine 75 mcg PO DAILY 05/07/18 05/07/18 History losartan 50 mg PO DAILY 05/07/18 05/07/18 History multivitamin [Multiple Vitamins] 1 tab PO DAILY 05/07/18 05/07/18 History ondansetron 4 mg PO Q6-8H PRN 05/07/18 05/07/18 History pantoprazole 40 mg PO DAILY 05/07/18 05/07/18 History prednisone 2 tab PO PER PKG DIR 05/07/18 05/07/18 History rosuvastatin 10 mg PO HS 05/07/18 05/07/18 History sennosides-docusate sodium [Senna 1 tab PO BID PRN 05/07/18 05/07/18 History Plus] tramadol 50 mg PO Q8HR 05/07/18 05/07/18 History Exam Vital signs: Vital Signs 05/08/18 16:00 05/08/18 20:00 05/08/18 21:00 Temperature 97.4 F L Pulse Rate 84 86 90 Respiratory Rate 20 14 Blood Pressure 124/59 L Pulse Oximetry 92 L 92 L 95 05/08/18 21:54 05/09/18 00:00 05/09/18 04:00 Temperature 98.0 F 97.3 F L 97.6 F Pulse Rate 81 80 82 Respiratory Rate 18 18 18 Blood Pressure 136/66 92/54 L 124/63 Pulse Oximetry 92 L 92 L 92 L 05/09/18 08:00 05/09/18 08:47 Temperature 99.0 F Pulse Rate 86 84 Respiratory Rate 20 14 Blood Pressure 158/67 H Pulse Oximetry 91 L 98 Intake & Output 05/08/18 05/09/18 05/09/18 18:59 06:59 18:59 Intake Total 480 / 480 120 / 120 Balance 480 / 480 120 / 120 Weight 67.7 kg Intake: Oral 480 / 480 120 / 120 Other: Post Void Residual 1,700 # Voids 2 Date of Last Bowel Movement 05/07/18 # Bowel Movements 1 1 - Constitutional no acute distress - Routine HEENT Exam Head: Present: normocephalic, atraumatic - Routine Neck Exam Present: supple - Routine Respiratory Exam Present: distant breath sounds (harsh) - Routine Cardiovascular Exam Present: murmur (systolic ejection murmur at 2nd ICS) - Routine Abdominal Exam Present: soft - Routine Neurological Exam Present: alert, oriented X3 Results - Lab Results 05/08/18 04:30 05/09/18 06:45 Most recent lab results Calcium 9.2 mg/dL (8.5-10.1) 05/09/18 06:45 Magnesium 1.6 mg/dL (1.5-2.5) 05/07/18 15:25 - Image Kidney/bladder ultrasound: pending Assessment and Plan - Assessment (1) Acute renal insufficiency Code(s): N28.9 - Disorder of kidney and ureter, unspecified Status: Acute Plan: Acute renal decline potentially related to contrast nephropathy 2/2 to exposure on 05/07/18 as well as some degree of renal hypoperfusion 2/2 to hypotension, diuresis, and valvulopathy. Hold BP medications today. Agree with gentle hydration given hypotension. No significant edema on examination Repeat renal panel in the AM. Check renal US Medications should be adjusted for the patient's renal decline. Avoid nephrotoxic agents such as iodinated contrast dyes and NSAIDs. Avoid gadolinium when eGFR <30. (2) Aortic stenosis, severe Code(s): I35.0 - Nonrheumatic aortic (valve) stenosis Status: Acute Plan: Mgmt as per cards. Mention of TAVR in the future (3) CAD (coronary artery disease) Code(s): I25.10 - Atherosclerotic heart disease of [place] coronary artery without angina pectoris Status: Acute Plan: Mgmt as per cards (4) CHF (congestive heart failure) Code(s): I50.9 - Heart failure, unspecified Status: Acute Plan: No appreciable edema on examination. Gentle hydration at the present (4) CHF (congestive heart failure) Qualifiers: Heart failure type: unspecified Heart failure chronicity: acute Qualified Code(s): I50.9 - Heart failure, unspecified
--- NOTE | 2018-05-09 13:58 | P.PNCA ---
Subjective Interval history: No events overnight Feels somewhat better Physical Exam Vital signs: Vital Signs 05/08/18 16:00 05/08/18 20:00 05/08/18 21:00 Temperature 97.4 F L Pulse Rate 84 86 90 Respiratory Rate 20 14 Blood Pressure 124/59 L Pulse Oximetry 92 L 92 L 95 05/08/18 21:54 05/09/18 00:00 05/09/18 04:00 Temperature 98.0 F 97.3 F L 97.6 F Pulse Rate 81 80 82 Respiratory Rate 18 18 18 Blood Pressure 136/66 92/54 L 124/63 Pulse Oximetry 92 L 92 L 92 L 05/09/18 08:00 05/09/18 08:47 Temperature 99.0 F Pulse Rate 86 84 Respiratory Rate 20 14 Blood Pressure 158/67 H Pulse Oximetry 91 L 98 Intake & Output 05/08/18 05/09/18 05/09/18 18:59 06:59 18:59 Intake Total 480 / 480 120 / 120 Balance 480 / 480 120 / 120 Weight 67.7 kg Intake: Oral 480 / 480 120 / 120 Other: Post Void Residual 1,700 # Voids 2 Date of Last Bowel Movement 05/07/18 05/09/18 # Bowel Movements 1 1 Narrative: GENERAL: NAD, AAOx3 SKIN: Warm and dry. HEAD: Atraumatic. Normocephalic. EYES: Pupils equal and round. No scleral icterus. No injection or drainage. ENT: No nasal bleeding or discharge. Mucous membranes pink and moist. NECK: Trachea midline. No JVD. CARDIOVASCULAR: Regular rate and rhythm, 3/6 crescendo-decrescendo murmur to the RSB RESPIRATORY: No accessory muscle use. Decreased breath sounds bilaterally GASTROINTESTINAL: Abdomen soft, non-tender, nondistended. Hepatic and splenic margins not palpable. MUSCULOSKELETAL: Extremities without clubbing, cyanosis, or edema. No obvious deformities. NEUROLOGICAL: Awake and alert. No obvious cranial nerve deficits. Motor grossly within normal limits. Five out of 5 muscle strength in the arms and legs. Normal speech. PSYCHIATRIC: Appropriate mood and affect; insight and judgment normal. Assessment and Plan - Assessment (1) Aortic stenosis, severe Code(s): I35.0 - Nonrheumatic aortic (valve) stenosis Status: Acute (2) CAD (coronary artery disease) Code(s): I25.10 - Atherosclerotic heart disease of [place] coronary artery without angina pectoris Status: Acute (3) CHF (congestive heart failure) Code(s): I50.9 - Heart failure, unspecified Status: Acute (4) Pleural effusion Code(s): J90 - Pleural effusion, not elsewhere classified Status: Acute - Plan 1) Chest pain More with cough, appears to be musculoskeletal 2) SOB, most likely multi-factorial PNA CHF 3) Fluid status Overall diuresed then placed on fluids May need to keep her on the dry side to avoid CHF until the procedure 4) CAD/TAVR Will hopefully get her over PNA Elective PCI of LAD then TAVR (3) CHF (congestive heart failure) Qualifiers: Heart failure type: unspecified Heart failure chronicity: acute Qualified Code(s): I50.9 - Heart failure, unspecified
[2018-05-09 16:27] LABS: Bacteria,Urine Rare /hpf; Bilirubin,Urine Negative (Negative); Clarity,Urine Cloudy (Clear); Color,Urine Yellow (Yellw/Straw); Glucose,Urine (UA) Negative (Negative); Leukocyte Esterase,Urine Moderate (Negative); Nitrite,Urine Negative (Negative); Specific Gravity,Urine 1.012 (1.002-1.035); Squamous Epithelial Cell,Urine 2 /hpf (0-5)
[2018-05-09] MEDS: Enoxaparin Inj 40 MG/0.4 ML Syringe SQ SCH (20:23)
[2018-05-09] MEDS: Amoxicillin/Clavulanate 500/125 MG Tablet PO SCH (22:34)
[2018-05-10] MEDS: Insulin NovoLOG Aspart Correctional Sugar Inj SQ SCH ×5 (05:05→23:04)
[2018-05-10] MEDS: Potassium Chloride 10 MEQ ER Capsule PO SCH (05:36)
[2018-05-10 06:32] LABS: Baso # (Auto) 0.1 th/mm3 (0.0-0.2); Baso % (Auto) 0.9 % (0.0-2.0); Eos # (Auto) 0.5 th/mm3 (0.0-0.4); Eos % (Auto) 5.5 % (0.0-4.0); Hematocrit 40.6 % (35.0-46.0); Hemoglobin 13.6 gm/dL (11.6-15.3); Lymph # (Auto) 3.6 th/mm3 (1.0-4.8); Lymph % (Auto) 43.8 % (9.0-44.0); Mean Corpuscular HGB Conc 33.5 % (32.0-36.0); Mean Corpuscular Hemoglobin 31.3 pg (27.0-34.0); Mean Corpuscular Volume 93.6 fL (80.0-100.0); Mean Platelet Volume 7.8 fL (7.0-11.0); Mono # (Auto) 0.8 th/mm3 (0.0-0.9); Mono % (Auto) 9.6 % (0.0-8.0); Neut # (Auto) 3.3 th/mm3 (1.8-7.7); Neut % (Auto) 40.2 % (16.0-70.0); Platelet Count 300 th/mm3 (150-450); Red Blood Count 4.34 mil/mm3 (4.00-5.30); Red Cell Distribution Width 14.6 % (11.6-17.2); White Blood Count 8.3 th/mm3 (4.0-11.0)
[2018-05-10 07:03] LABS: Albumin 3.1 g/dL (3.4-5.0); Calcium 8.3 mg/dL (8.5-10.1); Phosphorus 3.9 mg/dL (2.5-4.9); Potassium 4.5 meq/L (3.5-5.1)
[2018-05-10] MEDS: Carvedilol 6.25 MG Tablet PO SCH ×2 (08:58→23:03)
[2018-05-10] MEDS: Amoxicillin/Clavulanate 500/125 MG Tablet PO SCH ×2 (08:58→22:06)
[2018-05-10] MEDS: Ascorbic Acid 500 MG Tablet PO SCH (09:01)
[2018-05-10] MEDS: Levothyroxine 75 MCG Tablet PO SCH (09:01)
[2018-05-10] MEDS: Dicyclomine 10 MG Capsule PO SCH ×2 (09:03→22:06)
[2018-05-10] MEDS: Docusate Sodium 100 MG Capsule PO SCH (09:04)
--- NOTE | 2018-05-10 11:09 | US ---
EXAM DATE: 05/10/2018 10:54 AM EDT AGE/SEX: 83 years / Female INDICATIONS: Increased lab values. CLINICAL DATA: This is the patient's initial encounter. Patient reports that signs and symptoms have been present for 1 day and indicates a pain score of 0/10. MEDICAL/SURGICAL HISTORY: Hypercholesterolemia. Aortic stenosis. Coronary artery disease. COPD. Diabetes. GERD. HTN. Thyroid disease. Sarcoidosis of lung. Appendectomy. Cholecystectomy. Hystere ctomy. Cardiac cath. Total knee replacement. Pacemaker. Shoulder replacement. Hernia repair. Catarac t surgery. COMPARISON: No prior exams available for comparison. MEASUREMENTS: Right Kidney:__9.3 x 5.1 x 4.8 cm Left Kidney:__8.9 x 4.8 x 4.8 cm FINDINGS: Right Kidney: Normal echotexture and cortical thickness. No mass or hydronephrosis. Left Kidney: Normal echotexture and cortical thickness. No mass or hydronephrosis. Bladder: Within normal limits given the degree of distension. Other: None. CONCLUSION: 1. Normal renal ultrasound Electronically signed by: Ignacio Padron MD 05/10/2018 11:07 AM EDT
[2018-05-10 12:38] LABS: Bilirubin,Urine Negative (Negative); Clarity,Urine Clear (Clear); Color,Urine Yellow (Yellw/Straw); Glucose,Urine (UA) Negative (Negative); Hyaline Casts,Urine 1 /lpf (0-3); Leukocyte Esterase,Urine Negative (Negative); Nitrite,Urine Negative (Negative); Specific Gravity,Urine 1.011 (1.002-1.035); Squamous Epithelial Cell,Urine <1 /hpf (0-5)
--- NOTE | 2018-05-10 14:56 | XR ---
EXAM DATE: 05/10/2018 2:46 PM EDT AGE/SEX: 83 years / Female INDICATIONS: Pneumonia. CLINICAL DATA: This is the patient's initial encounter. Patient reports that signs and symptoms have been present for 3 days and indicates a pain score of 0/10. MEDICAL/SURGICAL HISTORY: Congestive heart failure. Pacemaker. COMPARISON: [facility] [place], CHEST 1V SINGLE AP, 05/07/2018. . FINDINGS: Pacemaker on the left. Cardiomegaly and mild interstitial edema improved in the interval. Better aera tion in both lungs. No significant infiltrate. CONCLUSION: Improvement as described above. Persistent cardiomegaly remains. Electronically signed by: Ignacio Padron MD 05/10/2018 2:55 PM EDT
--- NOTE | 2018-05-10 15:16 | P.PN ---
Subjective Interval history: no chest pain but coughing up a lot- dry Physical Exam Vital signs: Vital Signs 05/09/18 16:00 05/09/18 17:00 05/09/18 19:44 Temperature 98.3 F Pulse Rate 85 82 85 Respiratory Rate 19 Blood Pressure 99/55 L Pulse Oximetry 91 L 05/09/18 20:00 05/09/18 20:11 05/09/18 23:45 Temperature 97.8 F Pulse Rate 95 H 87 79 Respiratory Rate 17 18 Blood Pressure 114/60 Pulse Oximetry 93 L 93 L 05/10/18 00:00 05/10/18 04:00 05/10/18 04:13 Temperature 98.1 F 98.5 F Pulse Rate 83 77 77 Respiratory Rate 17 18 Blood Pressure 103/69 108/51 L Pulse Oximetry 93 L 92 L 05/10/18 07:55 05/10/18 08:00 05/10/18 12:00 Temperature 97.9 F 97.8 F Pulse Rate 78 78 Respiratory Rate 18 18 Blood Pressure 116/57 L 101/53 L Pulse Oximetry 95 93 L 90 L 05/10/18 12:26 Temperature Pulse Rate 77 Respiratory Rate Blood Pressure Pulse Oximetry 91 L Intake & Output 05/09/18 05/10/18 05/10/18 18:59 06:59 18:59 Intake Total 360 / 360 120 / 120 Output Total 370 / 370 300 / 300 Balance -10 / -10 -180 / -180 Weight 69.1 kg Intake: Oral 360 / 360 120 / 120 Output: Urine 370 / 370 300 / 300 Other: # Voids 3 Date of Last Bowel Movement 05/09/18 05/09/18 # Bowel Movements 0 0 Narrative: anicter iclungs- no rales, ocasinal rhnchiwhen coughing decreased breath sounds regular rhythm, 2/6 systolic murmur left sternal border abdomen soft, nontender extremities no edema Results - Labs CBC & Chem 7: 05/10/18 05:30 05/10/18 05:30 Laboratory Results - last 24 hr 05/09/18 05/09/18 05/09/18 15:44 16:00 16:00 WBC RBC Hgb Hct MCV MCH MCHC RDW Plt Count MPV Neut % (Auto) Lymph % (Auto) [place] % (Auto) Eos % (Auto) Baso % (Auto) Neut # (Auto) Lymph # (Auto) [place] # (Auto) Eos # (Auto) Baso # (Auto) WBC Differential Differential Comment Sodium Potassium Chloride Carbon Dioxide Anion Gap BUN Creatinine Estimated GFR POC Glucose Random Glucose Calcium Phosphorus Albumin Vitamin D 25-Hydroxy PTH Intact 121.0 H Urine Color Yellow Urine Clarity Cloudy H Urine pH 5.0 Ur Specific [place] 1.012 Urine Protein Negative Urine Glucose (UA) Negative Urine Ketones Trace H Urine Occult Blood Moderate H Urine Nitrate Negative Urine Bilirubin Negative Urine Urobilinogen Less than 2 Ur Leukocyte Esterase Moderate H Urine RBC 4 H Urine WBC 18 H Ur Squamous Epith Cells 2 Urine Bacteria Rare H Hyaline Casts Micro UA Comment Culture indicated Urine Culture Comments Culture indicated Urine Eosinophils None seen Complement C3 Complement C4 05/09/18 05/09/18 05/10/18 16:54 19:49 05:04 WBC RBC Hgb Hct MCV MCH MCHC RDW Plt Count MPV Neut % (Auto) Lymph % (Auto) [place] % (Auto) Eos % (Auto) Baso % (Auto) Neut # (Auto) Lymph # (Auto) [place] # (Auto) Eos # (Auto) Baso # (Auto) WBC Differential Differential Comment Sodium Potassium Chloride Carbon Dioxide Anion Gap BUN Creatinine Estimated GFR POC Glucose 125 H 137 H 109 Random Glucose Calcium Phosphorus Albumin Vitamin D 25-Hydroxy PTH Intact Urine Color Urine Clarity Urine pH Ur Specific [place] Urine Protein Urine Glucose (UA) Urine Ketones Urine Occult Blood Urine Nitrate Urine Bilirubin Urine Urobilinogen Ur Leukocyte Esterase Urine RBC Urine WBC Ur Squamous Epith Cells Urine Bacteria Hyaline Casts Micro UA Comment Urine Culture Comments Urine Eosinophils Complement C3 Complement C4 05/10/18 05/10/18 05/10/18 05:30 05:30 08:02 WBC 8.3 RBC 4.34 Hgb 13.6 Hct 40.6 MCV 93.6 MCH 31.3 MCHC 33.5 RDW 14.6 Plt Count 300 MPV 7.8 Neut % (Auto) 40.2 Lymph % (Auto) 43.8 [place] % (Auto) 9.6 H Eos % (Auto) 5.5 H Baso % (Auto) 0.9 Neut # (Auto) 3.3 Lymph # (Auto) 3.6 [place] # (Auto) 0.8 Eos # (Auto) 0.5 H Baso # (Auto) 0.1 WBC Differential . Differential Comment Auto diff final Sodium 141 Potassium 4.5 Chloride 105 Carbon Dioxide 30.0 Anion Gap 6 BUN 27 H Creatinine 1.51 H Estimated GFR 33 L POC Glucose 107 Random Glucose 104 Calcium 8.3 L D Phosphorus 3.9 Albumin 3.1 L Vitamin D 25-Hydroxy 42.6 PTH Intact Urine Color Urine Clarity Urine pH Ur Specific [place] Urine Protein Urine Glucose (UA) Urine Ketones Urine Occult Blood Urine Nitrate Urine Bilirubin Urine Urobilinogen Ur Leukocyte Esterase Urine RBC Urine WBC Ur Squamous Epith Cells Urine Bacteria Hyaline Casts Micro UA Comment Urine Culture Comments Urine Eosinophils Complement C3 101 Complement C4 19 05/10/18 05/10/18 10:30 12:43 WBC RBC Hgb Hct MCV MCH MCHC RDW Plt Count MPV Neut % (Auto) Lymph % (Auto) [place] % (Auto) Eos % (Auto) Baso % (Auto) Neut # (Auto) Lymph # (Auto) [place] # (Auto) Eos # (Auto) Baso # (Auto) WBC Differential Differential Comment Sodium Potassium Chloride Carbon Dioxide Anion Gap BUN Creatinine Estimated GFR POC Glucose 107 Random Glucose Calcium Phosphorus Albumin Vitamin D 25-Hydroxy PTH Intact Urine Color Yellow Urine Clarity Clear Urine pH 7.0 Ur Specific [place] 1.011 Urine Protein Negative Urine Glucose (UA) Negative Urine Ketones Negative Urine Occult Blood Moderate H Urine Nitrate Negative Urine Bilirubin Negative Urine Urobilinogen Less than 2 Ur Leukocyte Esterase Negative Urine RBC 2 Urine WBC 3 Ur Squamous Epith Cells <1 Urine Bacteria Hyaline Casts 1 Micro UA Comment Urine Culture Comments Urine Eosinophils Complement C3 Complement C4 Microbiology 05/09/18 16:00 Clean Catch Urine Urine Culture - Preliminary No growth in 24 hours - Imaging Impressions Chest X-Ray 05/07/18 15:09 CONCLUSION: Cardiomegaly with mild pulmonary edema pattern. Pacer leads in right atrium and right ventricle. Chest CTA 05/07/18 15:10 CONCLUSION: 1. Negative for pulmonary embolus. 2. Basilar airspace disease predominantly on the right side with small right effusion. 3. Remote granulomatous disease. 4. Pacer leads in right atrium and right ventricle. Right shoulder replacement. Chest X-Ray 05/10/18 00:00 CONCLUSION: Improvement as described above. Persistent cardiomegaly remains. Abdomen/Bladder Ultrasound 05/10/18 18:45 CONCLUSION: 1. Normal renal ultrasound Assessment and Plan - Plan 83 years old female 1. Shortness of breath/CHF exacerbation history of underlying CAD Hypertension- improved readings S/P PM in place Aortic stenosis - plan for TAVR eventually per Dr. masterson in the futures BNP elevated, suspect CHF exacerbation as chest x-ray significant for pulmonary edema Duo nebs Supplemental oxygen as needed IV Lasix bid on hold -and monitor renal functions- Dr. Masterson ff patient- plan for PCI as OP EKG paced rhythm, troponins negative monitor renal functions on diuretics- will hold due to increase in creatinine BB- Coreg 3.125 mg po bid- for CHF and BP control 2. History of sarcoidosis and liklye underlying restrictive lung disease Pneumonia - + Infiltrates on XR -Dr. Davis ff - will do 02 walk test prior to DC- likely qualify - steroids maintenance - on augmentin- Dr. davis ff - continue inhalers 3. Diabetes mellitus Patient previously on metformin, discontinued secondary to kidney injury Sliding-scale insulin Monitor blood glucose 5. Hypertension/hyperlipidemia/hypothyroidism Continue home medications 6. ACute Kidney Injury likely with underlying CKD - per patient was on lasix daily in the past and was DC due to increasing creatinine- unchanged HYpokalemia - hold IV Lasix 40 mg bid since 05/09 - meme decrease KCL bid to once daily - Npehrology ff - ff BMP - give another 500 cc x1 at 42 cc/hr FEN diet walk test prior to DC Lovenox
[2018-05-10] MEDS ORDERED: Sod Chloride 0.9% Inj 500 ML IV.CONT SCH (15:45)
[2018-05-10] MEDS: guaiFENesin 600 MG ER Tablet PO SCH ×2 (17:09→22:07)
--- NOTE | 2018-05-10 17:32 | P.PNCA ---
Subjective Interval history: No events overnight No chest pain Does have chronic cough, non-productive Physical Exam Vital signs: Vital Signs 05/09/18 19:44 05/09/18 20:00 05/09/18 20:11 Temperature 97.8 F Pulse Rate 85 95 H 87 Respiratory Rate 17 18 Blood Pressure 114/60 Pulse Oximetry 93 L 93 L 05/09/18 23:45 05/10/18 00:00 05/10/18 04:00 Temperature 98.1 F 98.5 F Pulse Rate 79 83 77 Respiratory Rate 17 18 Blood Pressure 103/69 108/51 L Pulse Oximetry 93 L 92 L 05/10/18 04:13 05/10/18 07:55 05/10/18 08:00 Temperature 97.9 F Pulse Rate 77 78 Respiratory Rate 18 Blood Pressure 116/57 L Pulse Oximetry 95 93 L 05/10/18 12:00 05/10/18 12:26 05/10/18 16:29 Temperature 97.8 F Pulse Rate 78 77 72 Respiratory Rate 18 Blood Pressure 101/53 L Pulse Oximetry 90 L 91 L Intake & Output 05/09/18 05/10/18 05/10/18 18:59 06:59 18:59 Intake Total 360 / 360 120 / 120 Output Total 370 / 370 300 / 300 Balance -10 / -10 -180 / -180 Weight 69.1 kg Intake: Oral 360 / 360 120 / 120 Output: Urine 370 / 370 300 / 300 Other: # Voids 3 Date of Last Bowel Movement 05/09/18 05/09/18 # Bowel Movements 0 0 Narrative: GENERAL: NAD, AAOx3 SKIN: Warm and dry. HEAD: Atraumatic. Normocephalic. EYES: Pupils equal and round. No scleral icterus. No injection or drainage. ENT: No nasal bleeding or discharge. Mucous membranes pink and moist. NECK: Trachea midline. No JVD. CARDIOVASCULAR: Regular rate and rhythm. 3/6 crescendo-decrescendo to the RSB RESPIRATORY: No accessory muscle use. Decreased breath sounds bilaterally GASTROINTESTINAL: Abdomen soft, non-tender, nondistended. Hepatic and splenic margins not palpable. MUSCULOSKELETAL: Extremities without clubbing, cyanosis, or edema. No obvious deformities. NEUROLOGICAL: Awake and alert. No obvious cranial nerve deficits. Motor grossly within normal limits. Five out of 5 muscle strength in the arms and legs. Normal speech. PSYCHIATRIC: Appropriate mood and affect; insight and judgment normal. Assessment and Plan - Assessment (1) Aortic stenosis, severe Code(s): I35.0 - Nonrheumatic aortic (valve) stenosis Status: Acute (2) CAD (coronary artery disease) Code(s): I25.10 - Atherosclerotic heart disease of [place] coronary artery without angina pectoris Status: Acute (3) CHF (congestive heart failure) Code(s): I50.9 - Heart failure, unspecified Status: Acute (4) Pleural effusion Code(s): J90 - Pleural effusion, not elsewhere classified Status: Acute - Plan 1) Chest pain More with cough, appears to be musculoskeletal 2) SOB, most likely multi-factorial PNA CHF 3) Fluid status Overall diuresed then placed on fluids May need to keep her on the dry side to avoid CHF until the procedure 4) CAD/TAVR Will hopefully get her over PNA Elective PCI of LAD then TAVR (3) CHF (congestive heart failure) Qualifiers: Heart failure type: unspecified Heart failure chronicity: acute Qualified Code(s): I50.9 - Heart failure, unspecified
--- NOTE | 2018-05-10 20:00 | P.PNNP ---
Subjective Interval history: Patient still having chronic dyspnea. Otherwise no verbal complaints. Physical Exam Vital signs: Vital Signs 05/09/18 20:00 05/09/18 20:11 05/09/18 23:45 Temperature 97.8 F Pulse Rate 95 H 87 79 Respiratory Rate 17 18 Blood Pressure 114/60 Pulse Oximetry 93 L 93 L 05/10/18 00:00 05/10/18 04:00 05/10/18 04:13 Temperature 98.1 F 98.5 F Pulse Rate 83 77 77 Respiratory Rate 17 18 Blood Pressure 103/69 108/51 L Pulse Oximetry 93 L 92 L 05/10/18 07:55 05/10/18 08:00 05/10/18 12:00 Temperature 97.9 F 97.8 F Pulse Rate 78 78 Respiratory Rate 18 18 Blood Pressure 116/57 L 101/53 L Pulse Oximetry 95 93 L 90 L 05/10/18 12:26 05/10/18 16:29 05/10/18 18:00 Temperature 97.7 F Pulse Rate 77 72 76 Respiratory Rate 18 Blood Pressure 110/54 L Pulse Oximetry 91 L 92 L Intake & Output 05/10/18 05/10/18 05/11/18 06:59 18:59 06:59 Intake Total 120 / 120 Output Total 300 / 300 Balance -180 / -180 Weight 69.1 kg Intake: Oral 120 / 120 Output: Urine 300 / 300 Other: Date of Last Bowel Movement 05/09/18 # Bowel Movements 0 Narrative: GENERAL: Frail appearing elderly female who appears to have some mild chronic dyspnea. SKIN: Warm and dry. Membranes moist. HEAD: Normocephalic. EYES: No scleral icterus. No injection or drainage. NECK: Supple, trachea midline. No JVD CARDIOVASCULAR: Regular rate and rhythm without murmurs, gallops, or rubs. RESPIRATORY: Breath sounds equal bilaterally. GASTROINTESTINAL: Abdomen soft, non-tender, nondistended. MUSCULOSKELETAL: No cyanosis, or edema. Assessment and Plan - Assessment (1) Acute renal insufficiency Code(s): N28.9 - Disorder of kidney and ureter, unspecified Status: Acute Plan: Patient is acute renal insufficiency appears to be related to contrast nephrotoxicity rather than primarily dehydration at this point in time. Cardiology requesting patient be kept on dry side prior to valve replacement. Patient appears to be adequately hydrated. At this point will discontinue IV fluids. Oral intake appears to be adequate. Hold losartan for the present pending improvement renal function. Hopefully patient's creatinine level will plateau soon subsequently improved. Medications should be adjusted for the patient's renal decline. Avoid nephrotoxic agents such as iodinated contrast dyes and NSAIDs. Avoid gadolinium when eGFR <30. (2) Aortic stenosis, severe Code(s): I35.0 - Nonrheumatic aortic (valve) stenosis Status: Acute Plan: Mgmt as per cards. Mention of TAVR in the future (3) CAD (coronary artery disease) Code(s): I25.10 - Atherosclerotic heart disease of [place] coronary artery without angina pectoris Status: Acute Plan: Mgmt as per cards (4) CHF (congestive heart failure) Code(s): I50.9 - Heart failure, unspecified Status: Acute Qualifiers: Heart failure type: unspecified Heart failure chronicity: acute Qualified Code(s): I50.9 - Heart failure, unspecified Plan: No appreciable edema on examination. Gentle hydration at the present
[2018-05-10] MEDS: Enoxaparin Inj 40 MG/0.4 ML Syringe SQ SCH (22:04)
[2018-05-10] MEDS: predniSONE 20 MG Tablet PO SCH (22:07)
[2018-05-11] MEDS: Insulin NovoLOG Aspart Correctional Sugar Inj SQ SCH ×5 (03:35→22:48)
[2018-05-11] MEDS ORDERED: Levothyroxine 75 MCG Tablet PO SCH (06:00)
[2018-05-11] MEDS: predniSONE 20 MG Tablet PO SCH ×2 (08:41→22:47)
[2018-05-11] MEDS: Amoxicillin/Clavulanate 500/125 MG Tablet PO SCH ×2 (08:42→22:47)
[2018-05-11] MEDS: Ascorbic Acid 500 MG Tablet PO SCH (08:43)
[2018-05-11] MEDS: guaiFENesin 600 MG ER Tablet PO SCH ×2 (08:43→22:45)
[2018-05-11] MEDS: Carvedilol 6.25 MG Tablet PO SCH ×2 (08:44→22:49)
[2018-05-11] MEDS: Docusate Sodium 100 MG Capsule PO SCH (08:45)
[2018-05-11] MEDS: Dicyclomine 10 MG Capsule PO SCH ×2 (08:45→22:46)
--- NOTE | 2018-05-11 15:18 | P.PN ---
Subjective Interval history: up and ambulated today- feeling better, no chest pain but got slightly short of breath- overall feeling better cough improved, afebrile- no sputum Physical Exam Vital signs: Vital Signs 05/10/18 16:29 05/10/18 18:00 05/10/18 20:00 Temperature 97.7 F 98.2 F Pulse Rate 72 76 80 Respiratory Rate 18 20 Blood Pressure 110/54 L 113/58 L Pulse Oximetry 92 L 91 L Pulse Oximetry [Resting on Room Air] Pulse Oximetry [Resting with Oxygen] 05/10/18 20:16 05/11/18 00:00 05/11/18 00:36 Temperature 98 F Pulse Rate 85 72 68 Respiratory Rate 17 20 Blood Pressure 111/51 L Pulse Oximetry 94 L 91 L Pulse Oximetry [Resting on Room Air] Pulse Oximetry [Resting with Oxygen] 05/11/18 04:00 05/11/18 08:00 05/11/18 08:20 Temperature 97.7 F 98.1 F Pulse Rate 66 70 95 H Respiratory Rate 20 18 17 Blood Pressure 152/68 H 111/72 Pulse Oximetry 94 L 95 92 L Pulse Oximetry [Resting on Room Air] Pulse Oximetry [Resting with Oxygen] 05/11/18 11:56 05/11/18 12:00 Temperature 97.5 F L Pulse Rate 65 Respiratory Rate 18 Blood Pressure 158/65 H Pulse Oximetry 95 Pulse Oximetry [Resting on Room Air] 87 L Pulse Oximetry [Resting with Oxygen] 95 Intake & Output 05/10/18 05/11/18 05/11/18 18:59 06:59 18:59 Intake Total 360 / 360 Output Total 1000 / 1000 Balance -640 / -640 Weight 70 kg Intake: Oral 360 / 360 Output: Urine 1000 / 1000 Other: # Bowel Movements 0 Narrative: anicteric lungs- no rales, no rhonchi, no wheezes, decreased breath sounds regular rhythm, 2/6 systolic murmur left sternal border abdomen soft, nontender extremities no edema Results - Labs CBC & Chem 7: 05/10/18 05:30 05/10/18 05:30 Laboratory Results - last 24 hr 05/10/18 05/10/18 05/11/18 18:10 20:40 03:26 POC Glucose 101 107 170 H 05/11/18 05/11/18 08:39 13:05 POC Glucose 148 H 139 H Microbiology 05/09/18 16:00 Clean Catch Urine Urine Culture - Final No growth in 48 hours Assessment and Plan - Plan 83 years old female 1. Shortness of breath/CHF exacerbation history of underlying CAD Hypertension- improved readings S/P PM in place Aortic stenosis - plan for TAVR eventually per Dr. masterson in the futures BNP elevated, suspect CHF exacerbation as chest x-ray significant for pulmonary edema Duo nebs Supplemental oxygen as needed IV Lasix bid on hold -and monitor renal functions- Dr. Masterson ff patient- plan for PCI as OP EKG paced rhythm, troponins negative monitor renal functions on diuretics- will hold due to increase in creatinine BB- Coreg 3.125 mg po bid- for CHF and BP control 2. History of sarcoidosis and liklye underlying restrictive lung disease Pneumonia - + Infiltrates on XR -Dr. Davis ff - qualify for home 02 - steroids maintenance - on augmentin- Dr. davis ff - continue inhalers 3. Diabetes mellitus Patient previously on metformin, discontinued secondary to kidney injury Sliding-scale insulin Monitor blood glucose 5. Hypertension/hyperlipidemia/hypothyroidism Continue home medications 6. ACute Kidney Injury likely with underlying CKD - per patient was on lasix daily in the past and was DC due to increasing creatinine- unchanged HYpokalemia - hold IV Lasix 40 mg bid since 05/09 - meme decrease KCL bid to once daily - Npehrology ff - ff BMP- check on etoday - give another 500 cc x1 at 42 cc/hr FEN diet walk test - qualifies for home 02 Lovenox
[2018-05-11 15:37] LABS: Calcium 8.9 mg/dL (8.5-10.1); Carbon Dioxide 21.1 meq/L (21.0-32.0)
--- NOTE | 2018-05-11 18:52 | P.PNNP ---
Subjective Interval history: Pt continues with harsh cough. Otherwise, says she is feeling OK Physical Exam Vital signs: Vital Signs 05/10/18 20:00 05/10/18 20:16 05/11/18 00:00 Temperature 98.2 F 98 F Pulse Rate 80 85 72 Respiratory Rate 20 17 20 Blood Pressure 113/58 L 111/51 L Pulse Oximetry 91 L 94 L 91 L Pulse Oximetry [Resting on Room Air] Pulse Oximetry [Resting with Oxygen] 05/11/18 00:36 05/11/18 04:00 05/11/18 08:00 Temperature 97.7 F 98.1 F Pulse Rate 68 66 70 Respiratory Rate 20 18 Blood Pressure 152/68 H 111/72 Pulse Oximetry 94 L 95 Pulse Oximetry [Resting on Room Air] Pulse Oximetry [Resting with Oxygen] 05/11/18 08:20 05/11/18 11:56 05/11/18 12:00 Temperature 97.5 F L Pulse Rate 95 H 65 Respiratory Rate 17 18 Blood Pressure 158/65 H Pulse Oximetry 92 L 95 Pulse Oximetry [Resting on Room Air] 87 L Pulse Oximetry [Resting with Oxygen] 95 05/11/18 16:00 Temperature Pulse Rate 77 Respiratory Rate Blood Pressure Pulse Oximetry Pulse Oximetry [Resting on Room Air] Pulse Oximetry [Resting with Oxygen] Intake & Output 05/10/18 05/11/18 05/11/18 18:59 06:59 18:59 Intake Total 360 / 360 Output Total 1000 / 1000 Balance -640 / -640 Weight 70 kg Intake: Oral 360 / 360 Output: Urine 1000 / 1000 Other: # Bowel Movements 0 - Constitutional no acute distress - Routine HEENT Exam Head: Present: normocephalic, atraumatic - Routine Neck Exam Present: supple - Routine Respiratory Exam Present: decreased breath sounds (overall clear, but with some harshness in upper [place]), distant breath sounds - Routine Cardiovascular Exam Present: RRR, S1, S2, murmur (4/6 RUSB) - Routine Extremities Exam Present: pulses intact, normal capillary refill - Routine Skin Exam Present: intact - Routine Neurological Exam Present: alert, oriented X3 - Detailed Neurological Exam: Coma Scale Verbal Response: Oriented - Routine Psychiatric Exam Present: normal affect Assessment and Plan - Assessment (1) Acute renal insufficiency Code(s): N28.9 - Disorder of kidney and ureter, unspecified Status: Acute Plan: Acute decline likely related to contrast nephropathy. Renal functions slowly improving. Previous baseline SCr 1.1. Advised the patient this may be her new baseline. Will repeat renal panel in the AM. Medications should be adjusted for the patient's renal decline. Avoid nephrotoxic agents such as iodinated contrast dyes and NSAIDs. Avoid gadolinium when eGFR <30. (2) Aortic stenosis, severe Code(s): I35.0 - Nonrheumatic aortic (valve) stenosis Status: Acute Plan: Mgmt as per cards. Mention of TAVR in the future (3) CAD (coronary artery disease) Code(s): I25.10 - Atherosclerotic heart disease of [place] coronary artery without angina pectoris Status: Acute Plan: Mgmt as per cards (4) CHF (congestive heart failure) Code(s): I50.9 - Heart failure, unspecified Status: Acute Qualifiers: Heart failure type: unspecified Heart failure chronicity: acute Qualified Code(s): I50.9 - Heart failure, unspecified Plan: Clinically compensated. IVF has been D/C'd and is maintaining adequate po intake.
--- NOTE | 2018-05-11 21:07 | P.PNCA ---
Subjective Interval history: Patient seen earlier today, late entry note No complaints Up to the chair, less coughing Physical Exam Vital signs: Vital Signs 05/11/18 00:00 05/11/18 00:36 05/11/18 04:00 Temperature 98 F 97.7 F Pulse Rate 72 68 66 Respiratory Rate 20 20 Blood Pressure 111/51 L 152/68 H Pulse Oximetry 91 L 94 L Pulse Oximetry [Resting on Room Air] Pulse Oximetry [Resting with Oxygen] 05/11/18 08:00 05/11/18 08:20 05/11/18 11:56 Temperature 98.1 F Pulse Rate 70 95 H Respiratory Rate 18 17 Blood Pressure 111/72 Pulse Oximetry 95 92 L Pulse Oximetry [Resting on Room Air] 87 L Pulse Oximetry [Resting with Oxygen] 95 05/11/18 12:00 05/11/18 16:00 05/11/18 20:05 Temperature 97.5 F L 98.0 F Pulse Rate 65 68 83 Respiratory Rate 18 20 16 Blood Pressure 158/65 H 94/47 L Pulse Oximetry 95 94 L 94 L Pulse Oximetry [Resting on Room Air] Pulse Oximetry [Resting with Oxygen] Intake & Output 05/11/18 05/11/18 05/12/18 06:59 18:59 06:59 Intake Total 360 / 360 500 / 500 Output Total 1000 / 1000 400 / 400 Balance -640 / -640 100 / 100 Weight 70 kg Intake: Oral 360 / 360 500 / 500 Output: Urine 1000 / 1000 400 / 400 Other: Date of Last Bowel Movement 05/11/18 # Bowel Movements 0 Narrative: GENERAL: NAD, AAOx3 SKIN: Warm and dry. HEAD: Atraumatic. Normocephalic. EYES: Pupils equal and round. No scleral icterus. No injection or drainage. ENT: No nasal bleeding or discharge. Mucous membranes pink and moist. NECK: Trachea midline. No JVD. CARDIOVASCULAR: Regular rate and rhythm. RESPIRATORY: No accessory muscle use. Clear to auscultation. Breath sounds equal bilaterally. GASTROINTESTINAL: Abdomen soft, non-tender, nondistended. Hepatic and splenic margins not palpable. MUSCULOSKELETAL: Extremities without clubbing, cyanosis, or edema. No obvious deformities. NEUROLOGICAL: Awake and alert. No obvious cranial nerve deficits. Motor grossly within normal limits. Five out of 5 muscle strength in the arms and legs. Normal speech. PSYCHIATRIC: Appropriate mood and affect; insight and judgment normal. Assessment and Plan - Assessment (1) Aortic stenosis, severe Code(s): I35.0 - Nonrheumatic aortic (valve) stenosis Status: Acute (2) CAD (coronary artery disease) Code(s): I25.10 - Atherosclerotic heart disease of [place] coronary artery without angina pectoris Status: Acute (3) CHF (congestive heart failure) Code(s): I50.9 - Heart failure, unspecified Status: Acute (4) Pleural effusion Code(s): J90 - Pleural effusion, not elsewhere classified Status: Acute - Plan 1) Chest pain More with cough, appears to be musculoskeletal 2) SOB, most likely multi-factorial PNA CHF 3) Fluid status Overall diuresed then placed on fluids Attempting to keep her on the dry side to avoid CHF until the procedure 4) CAD/TAVR Will hopefully get her over PNA Elective PCI of LAD then TAVR 5) Plan on home O2 per primary team (3) CHF (congestive heart failure) Qualifiers: Heart failure type: unspecified Heart failure chronicity: acute Qualified Code(s): I50.9 - Heart failure, unspecified
[2018-05-11] MEDS: Enoxaparin Inj 40 MG/0.4 ML Syringe SQ SCH (22:45)
[2018-05-12] MEDS: Insulin NovoLOG Aspart Correctional Sugar Inj SQ SCH ×3 (05:26→12:09)
[2018-05-12] MEDS: Amoxicillin/Clavulanate 500/125 MG Tablet PO SCH (08:40)
[2018-05-12] MEDS: Dicyclomine 10 MG Capsule PO SCH (08:40)
[2018-05-12] MEDS: Ascorbic Acid 500 MG Tablet PO SCH (08:41)
[2018-05-12] MEDS: Carvedilol 6.25 MG Tablet PO SCH (08:41)
[2018-05-12] MEDS: Docusate Sodium 100 MG Capsule PO SCH (08:42)
[2018-05-12] MEDS: guaiFENesin 600 MG ER Tablet PO SCH (08:42)
--- NOTE | 2018-05-12 08:42 | P.DCO ---
- Home Health Nursing Order: Medical education, Signs/symptoms of disease process, Oxygen administration education, Nursing assessment with vital signs - Home Health Aide Order: To assist in: Bathing and personal care, chair springer and meal prep - Word Processor Technician Order: To evaluate: Living conditions/environment, Support services - Case Management Consult Yes - Certification I have seen patient Feli Abraham on 05/12/18. My clinical findings support the need for the requested home health care services because: Patient has SOB, Limited ability to care for self, Need for psychosocial assistance, Infection with risk of complications I certify that my clinical findings support that this patient is homebound because: Poor cardiac reserve
[2018-05-12] MEDS: predniSONE 20 MG Tablet PO SCH (08:43)
--- NOTE | 2018-05-12 08:54 | P.PN ---
Subjective Interval history: patient feeling better cough- dry qualified for home 02 Physical Exam Vital signs: Vital Signs 05/11/18 11:56 05/11/18 12:00 05/11/18 16:00 Temperature 97.5 F L 98.0 F Pulse Rate 65 68 Respiratory Rate 18 20 Blood Pressure 158/65 H 94/47 L Pulse Oximetry 95 94 L Pulse Oximetry [Resting on Room Air] 87 L Pulse Oximetry [Resting with Oxygen] 95 05/11/18 20:00 05/11/18 20:05 05/11/18 23:57 Temperature 97.3 F L 97.6 F Pulse Rate 87 83 88 Respiratory Rate 18 16 18 Blood Pressure 111/58 L 144/65 H Pulse Oximetry 97 94 L 93 L Pulse Oximetry [Resting on Room Air] Pulse Oximetry [Resting with Oxygen] 05/12/18 00:00 05/12/18 04:00 Temperature 98 F Pulse Rate 73 71 Respiratory Rate 18 Blood Pressure 121/58 L Pulse Oximetry 94 L Pulse Oximetry [Resting on Room Air] Pulse Oximetry [Resting with Oxygen] Intake & Output 05/11/18 05/12/18 05/12/18 18:59 06:59 18:59 Intake Total 500 / 500 240 / 240 Output Total 400 / 400 500 / 500 Balance 100 / 100 -260 / -260 Weight 70.5 kg Intake: Oral 500 / 500 240 / 240 Output: Urine 400 / 400 500 / 500 Other: Date of Last Bowel Movement 05/11/18 # Bowel Movements 0 Narrative: GENERAL: NAD, AAOx3, on home 02 SKIN: Warm and dry. HEAD: Atraumatic. Normocephalic. EYES: Pupils equal and round. No scleral icterus. No injection or drainage. ENT: No nasal bleeding or discharge. Mucous membranes pink and moist. NECK: Trachea midline. No JVD. CARDIOVASCULAR: Regular rate and rhythm. 3/6 systolic murmur left sternal border RESPIRATORY: No accessory muscle use. Clear to auscultation. Breath sounds equal bilaterally. GASTROINTESTINAL: Abdomen soft, non-tender, nondistended. Hepatic and splenic margins not palpable. MUSCULOSKELETAL: Extremities without clubbing, cyanosis, or edema. No obvious deformities. NEUROLOGICAL: Awake and alert. No obvious cranial nerve deficits. Motor grossly within normal limits. Five out of 5 muscle strength in the arms and legs. Normal speech. PSYCHIATRIC: Appropriate mood and affect; insight and judgment normal. Results - Labs CBC & Chem 7: 05/12/18 07:59 05/12/18 07:59 Laboratory Results - last 24 hr 05/11/18 05/11/18 05/11/18 13:05 14:53 17:41 Sodium 139 Potassium 5.0 Chloride 106 Carbon Dioxide 21.1 Anion Gap 12 BUN 21 H Creatinine 1.46 H Estimated GFR 34 L POC Glucose 139 H 165 H Random Glucose 164 H Calcium 8.9 05/11/18 05/12/18 05/12/18 20:26 04:04 08:06 Sodium Potassium Chloride Carbon Dioxide Anion Gap BUN Creatinine Estimated GFR POC Glucose 147 H 115 H 168 H Random Glucose Calcium Microbiology 05/09/18 16:00 Clean Catch Urine Urine Culture - Final No growth in 48 hours Assessment and Plan - Plan 83 years old female 1. Shortness of breath/CHF exacerbation history of underlying CAD Hypertension- improved readings S/P PM in place Aortic stenosis - plan for TAVR eventually per Dr. masterson in the futures BNP elevated, suspect CHF exacerbation as chest x-ray significant for pulmonary edema Duo nebs Supplemental oxygen as needed Lasix held - acute KI- now trending down- recheck as OP- restart as OP-and monitor renal functions- Dr. Masterson ff patient- plan for PCI/TAVR as OP EKG paced rhythm, troponins negative monitor renal functions on diuretics- will hold due to increase in creatinine BB- Coreg 3.125 mg po bid- for CHF and BP control BMP creatinine trending down may benefit from ANTWON/ARB- will defer to PCP- with close monitoring of renal fucntions 2. History of sarcoidosis and liklye underlying restrictive lung disease Pneumonia - + Infiltrates on XR -Dr. Davis ff - qualify for home 02 - steroids maintenance - on augmentin- Dr. davis ff - continue inhalers, marianne also has nebulizing machine at home 3. Diabetes mellitus- good readings Patient previously on metformin, discontinued secondary to kidney injury Sliding-scale insulin Monitor blood glucose 5. Hypertension/hyperlipidemia/hypothyroidism Continue home medications 6. ACute Kidney Injury likely with underlying CKD - per patient was on lasix daily in the past and was DC due to increasing creatinine- unchanged HYpokalemia - hold IV Lasix 40 mg bid since 05/09 - KCL once daily - Npehrology ff - ff BMP- creatinine -improving OP ff up with Dr. Watts diet walk test - qualifies for home 02 Anju CM consult for homehealth care visits pending BMP today
--- NOTE | 2018-05-12 09:33 | MD ---
cc: Tye Davis MD DATE OF DISCHARGE: 05/12/2018 HOSPITAL COURSE: Ms. 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 She has developed cardiac issues recently including aortic stenosis and a coronary artery blockage and has been followed by Dr. Michelle. She was admitted to the hospital for pneumonia, increased shortness of breath and congestion. Hospital course was uncomplicated. She was treated with oral Augmentin, nebulized aerosol treatments and oxygen. I spoke to Dr. Michelle and she needs a probable stent in her anterior coronary artery on the left side and probably a TAVR for her aortic stenosis. He hoped to be able to clear up the pneumonia before she had to proceed and she has made considerable progress during this admission. She is feeling much better today with plan for discharge. PHYSICAL EXAM: VITAL SIGNS: 98 degrees 120/60, respirations 18-20 and pulse is 70 and regular. O2 saturation on 2 liters is 94% and we are going to send her home on oxygen. DISCUSSION: I had a long talk with Feli today and I think if we could get another week or two to clear up the pneumonia completely, she would be in better condition for the proposed cardiovascular procedures. She understands that she will be going home on antibiotics and oxygen. She is to use her nebulizer twice a day to clear her congestion and then call Dr. Michelle for a followup in 2 weeks, if she is doing well. She should have a followup chest x-ray as well. Because I will be away for 2 weeks, I explained to her clearly that if she is getting worse at home, particularly more short of breath, weaker or having any chest discomfort, she should come back to the hospital directly as she may need cardiovascular intervention sooner. Having expressed an understanding of this, I spoke with the hospitalist. They will be discharging her today. MD KWADWO Farooq/ALIYA , 08:44 AM , 09:32 AM
[2018-05-12 09:42] LABS: Baso % (Auto) 0.4 % (0.0-2.0); Hematocrit 38.6 % (35.0-46.0); Lymph # (Auto) 1.2 th/mm3 (1.0-4.8); Lymph % (Auto) 12.5 % (9.0-44.0); Mean Corpuscular HGB Conc 33.8 % (32.0-36.0); Mean Corpuscular Hemoglobin 31.4 pg (27.0-34.0); Mean Platelet Volume 9.1 fL (7.0-11.0); Mono # (Auto) 0.3 th/mm3 (0.0-0.9); Mono % (Auto) 2.8 % (0.0-8.0); Neut # (Auto) 8.4 th/mm3 (1.8-7.7); Neut % (Auto) 84.3 % (16.0-70.0); Platelet Count 240 th/mm3 (150-450); Red Blood Count 4.15 mil/mm3 (4.00-5.30); Red Cell Distribution Width 14.3 % (11.6-17.2)
[2018-05-12 10:03] LABS: Albumin 3.5 g/dL (3.4-5.0); Carbon Dioxide 24.7 meq/L (21.0-32.0); Phosphorus 3.4 mg/dL (2.5-4.9)
--- NOTE | 2018-05-12 12:11 | P.DS ---
Date of admission: 05/07/18 19:11 Primary care physician: Lorraine Mullen MD Anticipated date of discharge: 05/12/18 Brief History from admission: 83-year-old female with a past medical history significant for CHF, COPD, sarcoidosis, hypothyroidism, hypertension, hyperlipidemia, diabetes mellitus, aortic stenosis and coronary artery disease presents to the emergency department for the evaluation of 10 days of shortness of breath. This is the patient's third emergency room visit over the past 10 days. Her supplemental manager is Dr. Davis. She recently DC'd her Lasix secondary to renal insufficiency. She reports that she has been having increasing dyspnea that is worse on exertion and that she saw her supplemental manager who started her on Augmentin. She also complains of 3 days of substernal chest pressure. She denies any fever/ chills. No nausea/vomiting. No abdominal pain. She has had diarrhea 3 days. No lateralizing signs/symptoms. DS: Medications - Discharge Medications Prescriptions: amoxicillin-pot clavulanate [Augmentin] 1 tab PO Q12HR #14 tab carvedilol [Coreg] 3.125 mg PO BID #60 tab DS: Summary Hospital Course: 83 years old female 1. Shortness of breath/CHF exacerbation history of underlying CAD Hypertension- improved readings S/P PM in place Aortic stenosis - plan for TAVR eventually per Dr. masterson in the futures BNP elevated, suspect CHF exacerbation as chest x-ray significant for pulmonary edema Duo nebs Supplemental oxygen as needed Lasix held - acute KI- now trending down- recheck as OP- restart as OP-and monitor renal functions- Dr. Masterson ff patient- plan for PCI/TAVR as OP EKG paced rhythm, troponins negative monitor renal functions on diuretics- will hold due to increase in creatinine BB- Coreg 3.125 mg po bid- for CHF and BP control BMP creatinine trending down may benefit from ANTWON/ARB- will defer to PCP- with close monitoring of renal fucntions 2. History of sarcoidosis and liklye underlying restrictive lung disease Pneumonia - + Infiltrates on XR -Dr. Davis ff - qualify for home 02 - steroids maintenance - on augmentin- Dr. davis ff - continue inhalers, marianne also has nebulizing machine at home 3. Diabetes mellitus- good readings Patient previously on metformin, discontinued secondary to kidney injury Sliding-scale insulin Monitor blood glucose 5. Hypertension/hyperlipidemia/hypothyroidism Continue home medications 6. ACute Kidney Injury likely with underlying CKD - per patient was on lasix daily in the past and was DC due to increasing creatinine- unchanged HYpokalemia - hold IV Lasix 40 mg bid since 05/09 - KCL once daily - Npehrology ff - ff BMP- creatinine -improving OP ff up with Dr. Watts diet walk test - qualifies for home 02 Lovenox CM consult for homehealth care visits - Time Spent with Patient Total time spent providing and/or coordinating discharge services: - Quality: VTE Deep Vein Thrombosis/Pulmonary Embolism Present on Admission: No Exam Vital signs: Vital Signs 05/11/18 16:00 05/11/18 20:00 05/11/18 20:05 Temperature 98.0 F 97.3 F L Pulse Rate 68 87 83 Respiratory Rate 20 18 16 Blood Pressure 94/47 L 111/58 L Pulse Oximetry 94 L 97 94 L 05/11/18 23:57 05/12/18 00:00 05/12/18 04:00 Temperature 97.6 F 98 F Pulse Rate 88 73 71 Respiratory Rate 18 18 Blood Pressure 144/65 H 121/58 L Pulse Oximetry 93 L 94 L 05/12/18 08:00 05/12/18 08:18 05/12/18 09:56 Temperature 98.2 F Pulse Rate 66 67 67 Respiratory Rate 18 17 Blood Pressure 146/64 H Pulse Oximetry 94 L 98 Intake & Output 05/11/18 05/12/18 05/12/18 18:59 06:59 18:59 Intake Total 500 / 500 240 / 240 Output Total 400 / 400 500 / 500 Balance 100 / 100 -260 / -260 Weight 70.5 kg Intake: Oral 500 / 500 240 / 240 Output: Urine 400 / 400 500 / 500 Other: Date of Last Bowel Movement 05/11/18 # Bowel Movements 0 Narrative: awake and alert, good sat 0n 02 NC anicteric lungs- no rales' regular rhyth, 3/6 systolic murmur left sternal border abdomen soft, nontender extremities no edema Results Procedures completed during hospitalization: none Labs on day of discharge: Labs from last 24 hours 05/12/18 05/12/18 05/12/18 08:06 07:59 07:59 WBC 10.0 RBC 4.15 Hgb 13.0 Hct 38.6 MCV 93.0 MCH 31.4 MCHC 33.8 RDW 14.3 Plt Count 240 MPV 9.1 Neut % (Auto) 84.3 H Lymph % (Auto) 12.5 [place] % (Auto) 2.8 Eos % (Auto) 0.0 Baso % (Auto) 0.4 Neut # (Auto) 8.4 H Lymph # (Auto) 1.2 [place] # (Auto) 0.3 Eos # (Auto) 0.0 Baso # (Auto) 0.0 WBC Differential . Differential Comment Auto diff final Sodium 139 Potassium 5.0 Chloride 106 Carbon Dioxide 24.7 Anion Gap 8 BUN 22 H Creatinine 1.23 H Estimated GFR 42 L POC Glucose 168 H Random Glucose 154 H Calcium 9.0 Phosphorus 3.4 Albumin 3.5 05/12/18 05/11/18 05/11/18 04:04 20:26 17:41 WBC RBC Hgb Hct MCV MCH MCHC RDW Plt Count MPV Neut % (Auto) Lymph % (Auto) [place] % (Auto) Eos % (Auto) Baso % (Auto) Neut # (Auto) Lymph # (Auto) [place] # (Auto) Eos # (Auto) Baso # (Auto) WBC Differential Differential Comment Sodium Potassium Chloride Carbon Dioxide Anion Gap BUN Creatinine Estimated GFR POC Glucose 115 H 147 H 165 H Random Glucose Calcium Phosphorus Albumin 05/11/18 05/11/18 14:53 13:05 WBC RBC Hgb Hct MCV MCH MCHC RDW Plt Count MPV Neut % (Auto) Lymph % (Auto) [place] % (Auto) Eos % (Auto) Baso % (Auto) Neut # (Auto) Lymph # (Auto) [place] # (Auto) Eos # (Auto) Baso # (Auto) WBC Differential Differential Comment Sodium 139 Potassium 5.0 Chloride 106 Carbon Dioxide 21.1 Anion Gap 12 BUN 21 H Creatinine 1.46 H Estimated GFR 34 L POC Glucose 139 H Random Glucose 164 H Calcium 8.9 Phosphorus Albumin - Impressions ITS Impressions Chest CTA 05/07/18 15:10 CONCLUSION: 1. Negative for pulmonary embolus. 2. Basilar airspace disease predominantly on the right side with small right effusion. 3. Remote granulomatous disease. 4. Pacer leads in right atrium and right ventricle. Right shoulder replacement. Chest X-Ray 05/10/18 00:00 CONCLUSION: Improvement as described above. Persistent cardiomegaly remains. Abdomen/Bladder Ultrasound 05/10/18 18:45 CONCLUSION: 1. Normal renal ultrasound Discharge Plan - Discharge Disposition Patient Disposition: /Home Health Service - Discharge Condition Condition: Stable - Discharge Order Discharge Orders: Discharge Order (Routine); Ordered 05/12/18 Ordered By: Callum Schultz - Discharge Details Anticipated Discharge Date: 05/12/18 - Physicians Team Primary Care Provider: Lorraine Mullen Attending Provider: Callum Schultz Other Providers: Ignacio Davis MD ; Spencer Palmer ; Dilan Michelle DO ; Maia Watts MD
--- NOTE | 2018-05-12 18:30 | P.PNCA ---
Subjective Interval history: Feeling somewhat better Still on oxygen, failed walk test Physical Exam Vital signs: Vital Signs 05/11/18 20:00 05/11/18 20:05 05/11/18 23:57 Temperature 97.3 F L 97.6 F Pulse Rate 87 83 88 Respiratory Rate 18 16 18 Blood Pressure 111/58 L 144/65 H Pulse Oximetry 97 94 L 93 L 05/12/18 00:00 05/12/18 04:00 05/12/18 08:00 Temperature 98 F 98.2 F Pulse Rate 73 71 66 Respiratory Rate 18 18 Blood Pressure 121/58 L 146/64 H Pulse Oximetry 94 L 94 L 05/12/18 08:18 05/12/18 09:56 05/12/18 12:00 Temperature 97.8 F Pulse Rate 67 67 67 Respiratory Rate 17 18 Blood Pressure 139/61 Pulse Oximetry 98 96 05/12/18 12:09 05/12/18 13:02 05/12/18 16:00 Temperature 98.1 F Pulse Rate 62 74 67 Respiratory Rate 17 18 Blood Pressure 131/61 Pulse Oximetry 94 L 05/12/18 17:53 Temperature Pulse Rate Respiratory Rate Blood Pressure Pulse Oximetry 94 L Intake & Output 05/11/18 05/12/18 05/12/18 18:59 06:59 18:59 Intake Total 500 / 500 240 / 240 Output Total 400 / 400 500 / 500 Balance 100 / 100 -260 / -260 Weight 70.5 kg Intake: Oral 500 / 500 240 / 240 Output: Urine 400 / 400 500 / 500 Other: Date of Last Bowel Movement 05/11/18 # Bowel Movements 0 Narrative: GENERAL: NAD, AAOx3, on home 02 SKIN: Warm and dry. HEAD: Atraumatic. Normocephalic. EYES: Pupils equal and round. No scleral icterus. No injection or drainage. ENT: No nasal bleeding or discharge. Mucous membranes pink and moist. NECK: Trachea midline. No JVD. CARDIOVASCULAR: Regular rate and rhythm. 3/6 systolic murmur left sternal border RESPIRATORY: No accessory muscle use. Clear to auscultation. Breath sounds equal bilaterally. GASTROINTESTINAL: Abdomen soft, non-tender, nondistended. Hepatic and splenic margins not palpable. MUSCULOSKELETAL: Extremities without clubbing, cyanosis, or edema. No obvious deformities. NEUROLOGICAL: Awake and alert. No obvious cranial nerve deficits. Motor grossly within normal limits. Five out of 5 muscle strength in the arms and legs. Normal speech. PSYCHIATRIC: Appropriate mood and affect; insight and judgment normal. Assessment and Plan - Assessment (1) Aortic stenosis, severe Code(s): I35.0 - Nonrheumatic aortic (valve) stenosis Status: Acute (2) CAD (coronary artery disease) Code(s): I25.10 - Atherosclerotic heart disease of [place] coronary artery without angina pectoris Status: Acute (3) CHF (congestive heart failure) Code(s): I50.9 - Heart failure, unspecified Status: Acute (4) Pleural effusion Code(s): J90 - Pleural effusion, not elsewhere classified Status: Acute - Plan 1) Chest pain More with cough, appears to be musculoskeletal 2) SOB, most likely multi-factorial PNA CHF 3) Fluid status Creatinine overall better 4) CAD/TAVR Will hopefully get her over PNA Elective PCI of LAD then TAVR 5) Plan on home O2 per primary team 6) Cardiovascularly stable for discharge Will plan to check on her next week and if doing better will set up PCI of LAD (3) CHF (congestive heart failure) Qualifiers: Heart failure type: unspecified Heart failure chronicity: acute Qualified Code(s): I50.9 - Heart failure, unspecified
[2018-05-14] MEDS ORDERED: Levothyroxine 50 MCG Tablet PO SCH (06:00)
== END 2018-05-12 18:03 | disposition home health service (06) ==
LOC: NEPC 14:24 → NEDA 19:11 → MERGE 19:11 → N04 21:13
PROVIDERS: ADMIT Internal Medicine; ATTEND Internal Medicine

== ENCOUNTER 2018-06-12 13:06 | Observation (INO) ==
--- NOTE | 2018-06-12 15:00 | ED ---
HPI General Chief complaint: Shortness of Breath/Dyspnea Stated complaint: breathing issues/phys sent Time Seen by Provider: 06/12/18 14:03 Source: patient and family Mode of arrival: ambulatory Limitations: no limitations History of Present Illness HPI narrative: 83-year-old female that presents to the ED for evaluation of altered mental status, shortness of breath and hypotension. Patient had a heart cath done a week ago and had stents in place. Patient was started on Plavix. Patient apparently has a bowel issue with her aortic valve which needs to be replaced. Patient has been doing well with the exception that over the weekend she has been having more shortness of breath. Apparently she went to see 1 of her doctors who told her that she may have some fluid in her lung and increase her medications. She was told to stop her losartan if her blood pressure was below 100 systolic and per family and patient her blood pressure was low. During this time during Tuesday through Tuesday apparently patient's mentation was very altered. Per daughter who is at bedside she tried to bring her here for evaluation but the patient will not let her. Patient continued to have alteration and will not recognize anybody with the family members. Currently today it has been heard best day and she is actually remembering everything. She is able to answer everything. Back pain or abdominal pain. She does state having some mild diarrhea today. She has had UTIs in the past with dizziness but never with altered mental status. Daughter is not sure as to what is causing this but she is barely concerned because of the altered mental status that she has had. Patient states having slight chest pressure but feels more like shortness of breath. She does have a history of sarcoidosis and uses oxygen at home. Related Data Home Medications Medication Instructions Recorded Confirmed albuterol sulfate [Ventolin HFA] 2 puff INHALATION Q4HR 05/07/18 06/12/18 ascorbic acid (vitamin C) [Vitamin 500 mg PO DAILY 05/07/18 06/12/18 C] aspirin [Aspirin Low Dose] 81 mg PO DAILY 05/07/18 06/12/18 biotin 5 mg PO DAILY 05/07/18 06/12/18 cetirizine [Zyrtec] 10 mg PO DAILY 05/07/18 06/12/18 cholecalciferol (vitamin D3) 5,000 unit PO DAILY 05/07/18 06/12/18 cinnamon bark [Cinnamon] 1,000 mg PO DAILY 05/07/18 06/12/18 coenzyme Q10 100 mg PO DAILY 05/07/18 06/12/18 cyanocobalamin (vitamin B-12) 1,000 mcg PO DAILY 05/07/18 06/12/18 dicyclomine 10 mg PO BID 05/07/18 06/12/18 fluticasone 2 spray INTRANASAL DAILY 05/07/18 06/12/18 furosemide 10 mg PO DAILY 05/07/18 06/12/18 levalbuterol HCl 1.25 mg INHALATION Q4-6H PRN 05/07/18 06/12/18 levothyroxine 50 mcg PO WEEKLY 05/07/18 06/12/18 levothyroxine See Label Instructions .ROUTE 05/07/18 06/12/18 .COMPLEX losartan 50 mg PO DAILY 05/07/18 06/12/18 multivitamin [Multiple Vitamins] 1 tab PO DAILY 05/07/18 06/12/18 pantoprazole 40 mg PO DAILY 05/07/18 06/12/18 rosuvastatin 10 mg PO HS 05/07/18 06/12/18 Saccharomyces boulardii 500 mg PO BID 06/12/18 06/12/18 alprazolam [Xanax] 0.25 mg PO Q6HR PRN 06/12/18 06/12/18 dextromethorphan-guaifenesin 1 tab PO Q12H PRN 06/12/18 06/12/18 [Mucinex DM] prednisone 10 mg PO DAILY PRN 06/12/18 06/12/18 sennosides-docusate sodium [Senna 1 tab PO DAILY 06/12/18 06/12/18 Plus] tramadol 50 mg PO DAILY PRN 06/12/18 06/12/18 Previous Rx's Medication Instructions Recorded carvedilol [Coreg] 3.125 mg PO BID #60 tab 05/12/18 clopidogrel [Plavix] 75 mg PO DAILY #90 tab 06/01/18 Allergies Allergy/AdvReac Type Severity Reaction Status Date / Time vancomycin Allergy Mild ITCHING, Verified 05/09/18 10:23 RASH citalopram Allergy Unknown unknown Verified 06/12/18 14:33 hyoscyamine Allergy Unknown unknown Verified 06/12/18 14:33 meperidine Allergy Unknown unknown Verified 06/12/18 14:33 Sulfa (Sulfonamide Allergy Unknown Anaphylaxis Verified 06/12/18 14:33 Antibiotics) sulfamethoxazole Allergy Unknown Anaphylaxis Verified 06/12/18 14:33 trimethoprim Allergy Unknown Anaphylaxis Verified 06/12/18 14:33 levofloxacin AdvReac Unknown Cramping Verified 06/12/18 14:33 of the Muscles morphine AdvReac Unknown Hallucinati Verified 06/12/18 14:33 ons Review of Systems ROS: all other systems reviewed are negative PMFSH History History Provided By: Patient and Family Member Medical History Medical History Aortic stenosis (Acute) CAD (coronary artery disease) (Acute) COPD (chronic obstructive pulmonary disease) (Acute) Diabetes mellitus (Acute) FHx: total knee replacement (Acute) GERD (gastroesophageal reflux disease) (Acute) High cholesterol (Acute) Hypertension (Acute) Pacemaker (Acute) Sarcoidosis of lung (Acute) Thyroid disease (Acute) Surgical History Surgical History H/O cardiac catheterization (Acute) H/O hernia repair (Acute) H/O shoulder replacement (Acute) H/O total hysterectomy (Acute) History of appendectomy (Acute) History of cholecystectomy (Acute) Hx of cataract surgery (Acute) Social History Social History Substance History: No History of Abuse Second Hand Smoke Exposure: Yes Smoking Status: Never smoker How Often Do You Have a Drink Containing Alcohol: Never Recent Travel in [facility] within the Last 8 Weeks: No Recent Out of Country Travel within the Last 8 Weeks: No Exam Narrative Exam Narrative: GENERAL: Well-appearing SKIN: Focused skin assessment warm/dry. HEAD: Atraumatic. Normocephalic. EYES: Pupils equal and round. No scleral icterus. No injection or drainage. ENT: No nasal bleeding or discharge. Mucous membranes pink and moist. Tongue is midline. No uvula deviation. NECK: Trachea midline. No JVD. CARDIOVASCULAR: Regular rate and rhythm. No murmur appreciated. RESPIRATORY: No accessory muscle use. Mild rales heard in the lower lung bolden bilaterally. Breath sounds equal bilaterally. GASTROINTESTINAL: Abdomen soft, non-tender, nondistended. Hepatic and splenic margins not palpable. MUSCULOSKELETAL: No obvious deformities. No clubbing. No cyanosis. No edema. Full range of motion of the upper and lower extremities bilaterally. 2+ pulses bilaterally. NEUROLOGICAL: Awake and alert. No obvious cranial nerve deficits. Motor grossly within normal limits. Normal speech. PSYCHIATRIC: Appropriate mood and affect; insight and judgment normal. Course Initial Documented Vital Signs Temperature 98.5 F 06/12/18 13:25 Pulse Rate 80 06/12/18 13:25 Respiratory Rate 18 06/12/18 13:25 Blood Pressure 123/58 L 06/12/18 13:25 Pulse Oximetry 92 L 06/12/18 13:25 Last Documented Vital Signs Temperature 98.5 F 06/12/18 13:25 Pulse Rate 78 06/12/18 17:32 Respiratory Rate 13 06/12/18 17:32 Blood Pressure 134/61 06/12/18 17:32 Pulse Oximetry 93 L 06/12/18 17:32 Medical Decision Making MDM Narrative Medical decision making narrative: 83-year-old female that presents to the ED for evaluation of shortness of breath as well as altered mental status. Patient was properly examined and was found to have signs and symptoms of unclear etiology. She does have significant cardiac history. Labs and imaging were ordered. She took an aspirin and Plavix already today. Labs and imaging showed no sign of acute disease. Patient does appear to have a slightly elevated troponin were otherwise unremarkable. Troponin is still within normal limits of 0.05. She does had a heart cath. Urine did show what appears to be possible UTI. Could be urosepsis. Patient currently not altered but family is very concerned. At this time I recommend admission for further evaluation. Patient agrees. Patient will start ceftriaxone. Dr. Layton was consulted and agreed to admission. Differential Diagnosis Differential Diagnosis: UTI versus pneumonia versus altered mental status versus sepsis versus encephalopathy Medical Records Medical records reviewed: Yes I reviewed the patient's medical records. Lab Data Lab results reviewed: Yes I reviewed the patient's lab results. Lab results narrative: troponin of 0.05 UA shows possible UTI Result diagrams: 06/12/18 14:50 06/12/18 14:50 Lab Results 06/12/18 06/12/18 06/12/18 Range/Units 14:50 14:50 14:50 WBC 7.6 (4.0-11.0) th/mm3 RBC 3.72 L (4.00-5.30) mil/mm3 Hgb 12.1 (11.6-15.3) gm/dL Hct 34.1 L (35.0-46.0) % MCV 91.8 (80.0-100.0) fL MCH 32.7 (27.0-34.0) pg MCHC 35.6 (32.0-36.0) % RDW 14.6 (11.6-17.2) % Plt Count 290 D (150-450) th/mm3 MPV 7.9 (7.0-11.0) fL Neut % (Auto) 51.6 (16.0-70.0) % Lymph % (Auto) 35.0 (9.0-44.0) % [place] % (Auto) 9.6 H (0.0-8.0) % Eos % (Auto) 2.9 (0.0-4.0) % Baso % (Auto) 0.9 (0.0-2.0) % Neut # (Auto) 3.9 (1.8-7.7) th/mm3 Lymph # (Auto) 2.7 (1.0-4.8) th/mm3 [place] # (Auto) 0.7 (0.0-0.9) th/mm3 Eos # (Auto) 0.2 (0.0-0.4) th/mm3 Baso # (Auto) 0.1 (0.0-0.2) th/mm3 WBC Differential . Differential Comment Auto diff final PT 10.6 (9.8-11.6) sec INR 1.0 Ratio APTT 24.5 (24.3-30.1) sec Sodium 139 (136-145) meq/L Potassium 4.1 (3.5-5.1) meq/L Chloride 102 (98-107) meq/L Carbon Dioxide 27.7 (21.0-32.0) meq/L Anion Gap 9 (5-15) meq/L BUN 23 H (7-18) mg/dL Creatinine 1.66 H (0.50-1.00) mg/dL Estimated GFR 30 L (>89) mL/min Random Glucose 118 H (74-106) mg/dL Calcium 8.6 (8.5-10.1) mg/dL Magnesium 1.7 (1.5-2.5) mg/dL Total Bilirubin 0.4 (0.2-1.0) mg/dL AST 13 L (15-37) U/L ALT 16 (10-53) U/L Alkaline Phosphatase 73 (45-117) U/L Total Creatine Kinase 50 (26-192) U/L Troponin I 0.05 (0.02-0.05) ng/mL B-Natriuretic Peptide (0-100) pg/mL Total Protein 6.9 (6.4-8.2) g/dL Albumin 3.2 L (3.4-5.0) g/dL Urine Color (Yellw/Straw) Urine Clarity (Clear) Urine pH (5.0-8.5) Ur Specific [place] (1.002-1.035) Urine Protein (Neg-Trace) mg/dL Urine Glucose (UA) (Negative) mg/dL Urine Ketones (Negative) mg/dL Urine Occult Blood (Negative) Urine Nitrate (Negative) Urine Bilirubin (Negative) Urine Urobilinogen (Less than 2) mg/dL Ur Leukocyte Esterase (Negative) Urine RBC (0-3) /hpf Urine WBC (0-5) /hpf Ur Squamous Epith Cells (0-5) /hpf Urine Bacteria (None) /hpf Hyaline Casts (0-3) /lpf Urine Mucus (Occasional) /lpf Micro UA Comment Urine Culture Comments 06/12/18 06/12/18 Range/Units 14:50 16:16 WBC (4.0-11.0) th/mm3 RBC (4.00-5.30) mil/mm3 Hgb (11.6-15.3) gm/dL Hct (35.0-46.0) % MCV (80.0-100.0) fL MCH (27.0-34.0) pg MCHC (32.0-36.0) % RDW (11.6-17.2) % Plt Count (150-450) th/mm3 MPV (7.0-11.0) fL Neut % (Auto) (16.0-70.0) % Lymph % (Auto) (9.0-44.0) % [place] % (Auto) (0.0-8.0) % Eos % (Auto) (0.0-4.0) % Baso % (Auto) (0.0-2.0) % Neut # (Auto) (1.8-7.7) th/mm3 Lymph # (Auto) (1.0-4.8) th/mm3 [place] # (Auto) (0.0-0.9) th/mm3 Eos # (Auto) (0.0-0.4) th/mm3 Baso # (Auto) (0.0-0.2) th/mm3 WBC Differential Differential Comment PT (9.8-11.6) sec INR Ratio APTT (24.3-30.1) sec Sodium (136-145) meq/L Potassium (3.5-5.1) meq/L Chloride (98-107) meq/L Carbon Dioxide (21.0-32.0) meq/L Anion Gap (5-15) meq/L BUN (7-18) mg/dL Creatinine (0.50-1.00) mg/dL Estimated GFR (>89) mL/min Random Glucose (74-106) mg/dL Calcium (8.5-10.1) mg/dL Magnesium (1.5-2.5) mg/dL Total Bilirubin (0.2-1.0) mg/dL AST (15-37) U/L ALT (10-53) U/L Alkaline Phosphatase (45-117) U/L Total Creatine Kinase (26-192) U/L Troponin I (0.02-0.05) ng/mL B-Natriuretic Peptide 325 H (0-100) pg/mL Total Protein (6.4-8.2) g/dL Albumin (3.4-5.0) g/dL Urine Color Yellow (Yellw/Straw) Urine Clarity Clear (Clear) Urine pH 5.0 (5.0-8.5) Ur Specific Carter 1.009 (1.002-1.035) Urine Protein Negative (Neg-Trace) mg/dL Urine Glucose (UA) Negative (Negative) mg/dL Urine Ketones Negative (Negative) mg/dL Urine Occult Blood Moderate H (Negative) Urine Nitrate Negative (Negative) Urine Bilirubin Negative (Negative) Urine Urobilinogen Less than 2 (Less than 2) mg/dL Ur Leukocyte Esterase Small H (Negative) Urine RBC 3 (0-3) /hpf Urine WBC 15 H (0-5) /hpf Ur Squamous Epith Cells <1 (0-5) /hpf Urine Bacteria Rare H (None) /hpf Hyaline Casts 4 (0-3) /lpf Urine Mucus Few H (Occasional) /lpf Micro UA Comment Culture indicated Urine Culture Comments Culture indicated Imaging Data Attestation: I personally reviewed and interpreted this imaging study as follows : Radiologist's impression: Chest X-Ray 06/12/18 14:11 CONCLUSION: 1. Old granulomatous disease. 2. No acute cardiopulmonary process. 3. Right shoulder arthroplasty. Chronic left rotator cuff injury. ECG Data EKG Prior to Arrival: No Attestation: I personally reviewed and interpreted this ECG as follows: Interpretation: EKG show paced rhythm no sign of acute ischemia and arrhythmia read by me and attending. Discharge Plan Discharge Disposition Patient Disposition: 30 Still Patient Discharge Details Diagnosis: Acute alteration in mental status, Acute UTI Physicians Team ED Provider: Emily Torres ED Midlevel Provider: Joshua Raman Primary Care Provider: Do Marsha Beasley Rxs /Orders / Referrals /Forms Prescriptions: No Action albuterol sulfate [Ventolin HFA] 90 mcg/actuation Hfa Aerosol Inhaler 2 puff Inhalation Q4HR RF: 0 multivitamin [Multiple Vitamins] Tablet 1 tab PO DAILY RF: 0 losartan 50 mg Tablet 50 mg PO DAILY RF: 0 cetirizine [Zyrtec] 10 mg Tablet 10 mg PO DAILY RF: 0 biotin 5 mg Capsule 5 mg PO DAILY RF: 0 cyanocobalamin (vitamin B-12) 1,000 mcg Tablet 1,000 mcg PO DAILY RF: 0 aspirin [Aspirin Low Dose] 81 mg Tablet,Delayed Release (Dr/Ec) 81 mg PO DAILY RF: 0 levothyroxine 75 mcg Tablet See Label Instructions .ROUTE .COMPLEX RF: 0 coenzyme Q10 50 mg Capsule 100 mg PO DAILY RF: 0 ascorbic acid (vitamin C) [Vitamin C] 250 mg Tablet 500 mg PO DAILY RF: 0 levothyroxine 50 mcg Tablet 50 mcg PO WEEKLY RF: 0 pantoprazole 40 mg Tablet,Delayed Release (Dr/Ec) 40 mg PO DAILY RF: 0 furosemide 20 mg Tablet 10 mg PO DAILY RF: 0 levalbuterol HCl 1.25 mg/3 mL Solution For Nebulization 1.25 mg INHALATION Q4-6H PRN (Reason: Shortness Of Breath) RF: 0 fluticasone 50 mcg/actuation [place],Suspension 2 spray INTRANASAL DAILY RF: 0 dicyclomine 10 mg Capsule 10 mg PO BID RF: 0 rosuvastatin 10 mg Tablet 10 mg PO HS RF: 0 cinnamon bark [Cinnamon] 500 mg Capsule 1,000 mg PO DAILY RF: 0 cholecalciferol (vitamin D3) 5,000 unit Tablet 5,000 unit PO DAILY RF: 0 carvedilol [Coreg] 6.25 mg Tablet 3.125 mg PO BID Qty: 60 RF: 1 clopidogrel [Plavix] 75 mg Tablet 75 mg PO DAILY Qty: 90 RF: 3 prednisone 10 mg Tablet 10 mg PO DAILY PRN (Reason: Inflammation) RF: 0 sennosides-docusate sodium [Senna Plus] 8.6-50 mg Tablet 1 tab PO DAILY RF: 0 tramadol 50 mg Tablet 50 mg PO DAILY PRN (Reason: Pain) RF: 0 alprazolam [Xanax] 0.25 mg Tablet 0.25 mg PO Q6HR PRN (Reason: Anxiety) RF: 0 dextromethorphan-guaifenesin [Mucinex DM] 60-1,200 mg Tablet Extended Release 12 Hr 1 tab PO Q12H PRN (Reason: Cough) RF: 0 Saccharomyces boulardii 250 mg Capsule 500 mg PO BID RF: 0 Discharge Interventions Interventions: Vital Signs Last Done: 06/12/18 17:32 Status ED Status: With Doctor
--- NOTE | 2018-06-12 15:13 | XR ---
EXAM DATE: 06/12/2018 3:02 PM EDT AGE/SEX: 83 years / Female INDICATIONS: Short of breath, cough CLINICAL DATA: This is the patient's initial encounter. Patient reports that signs and symptoms have been present for 4 - 6 days and indicates a pain score of 0/10. MEDICAL/SURGICAL HISTORY: Congestive heart failure. Cardiovascular disease. sarcoidosis, pneum onia Pacemaker. COMPARISON: [facility] – [place], CHEST 1V SINGLE AP, 05/10/2018. . FINDINGS: A single AP view of the chest demonstrates innumerable parenchymal and hilar granulomatous type calci fications in both hemithoraces, right greater than left. Lungs are otherwise clear. Heart size is upp er limits of normal. Left subclavian bipolar pacer is radiographically intact. Right shoulder arthrop lasty. Left shoulder is high riding characteristic of a chronic rotator cuff injury. CONCLUSION: 1. Old granulomatous disease. 2. No acute cardiopulmonary process. 3. Right shoulder arthroplasty. Chronic left rotator cuff injury. Electronically signed by: Jason Rizzo MD 06/12/2018 3:12 PM EDT
[2018-06-12 15:24] LABS: Baso # (Auto) 0.1 th/mm3 (0.0-0.2); Baso % (Auto) 0.9 % (0.0-2.0); Eos # (Auto) 0.2 th/mm3 (0.0-0.4); Eos % (Auto) 2.9 % (0.0-4.0); Hematocrit 34.1 % (35.0-46.0); Hemoglobin 12.1 gm/dL (11.6-15.3); Lymph # (Auto) 2.7 th/mm3 (1.0-4.8); Mean Corpuscular HGB Conc 35.6 % (32.0-36.0); Mean Corpuscular Hemoglobin 32.7 pg (27.0-34.0); Mean Corpuscular Volume 91.8 fL (80.0-100.0); Mean Platelet Volume 7.9 fL (7.0-11.0); Mono # (Auto) 0.7 th/mm3 (0.0-0.9); Mono % (Auto) 9.6 % (0.0-8.0); Neut # (Auto) 3.9 th/mm3 (1.8-7.7); Neut % (Auto) 51.6 % (16.0-70.0); Platelet Count 290 th/mm3 (150-450); Red Blood Count 3.72 mil/mm3 (4.00-5.30); Red Cell Distribution Width 14.6 % (11.6-17.2); White Blood Count 7.6 th/mm3 (4.0-11.0)
[2018-06-12 15:33] LABS: Activated Partial Thrombo Time 24.5 sec (24.3-30.1); Prothrombin Time 10.6 sec (9.8-11.6)
[2018-06-12 15:40] LABS: Albumin 3.2 g/dL (3.4-5.0); Anion Gap 9 meq/L (5-15); Aspartate Aminotransferase 13 U/L (15-37); Blood Urea Nitrogen 23 mg/dL (7-18); Calcium 8.6 mg/dL (8.5-10.1); Carbon Dioxide 27.7 meq/L (21.0-32.0); Chloride 102 meq/L (98-107); Glomerular Filtration Rate 30 mL/min (>89); Glucose,Random 118 mg/dL (74-106); Magnesium 1.7 mg/dL (1.5-2.5); Potassium 4.1 meq/L (3.5-5.1); Sodium 139 meq/L (136-145)
[2018-06-12 15:45] LABS: Alanine Aminotransferase 16 U/L (10-53); Alkaline Phosphatase 73 U/L (45-117); Total Protein 6.9 g/dL (6.4-8.2); Troponin I 0.05 ng/mL (0.02-0.05)
[2018-06-12 15:48] LABS: Creatine Kinase 50 U/L (26-192)
[2018-06-12 16:44] LABS: Bacteria,Urine Rare /hpf; Bilirubin,Urine Negative (Negative); Clarity,Urine Clear (Clear); Color,Urine Yellow (Yellw/Straw); Glucose,Urine (UA) Negative (Negative); Hyaline Casts,Urine 4 /lpf (0-3); Leukocyte Esterase,Urine Small (Negative); Mucus,Urine Few /lpf (Occasional); Nitrite,Urine Negative (Negative); Specific Gravity,Urine 1.009 (1.002-1.035); Squamous Epithelial Cell,Urine <1 /hpf (0-5)
[2018-06-12] MEDS ORDERED: Bisacodyl 10 MG Supp RECTAL PRN (18:01)
--- NOTE | 2018-06-12 18:53 | ECG ---
Date Performed: 06/12/2018 Time Performed: 14:45:31 PTAGE: 83 years EKG: Dual chamber pacemaker probably no significant changes PREVIOUS TRACING : 05/31/2018 12.53 DOCTOR: Lauri Louis Interpretating Date/Time 06/12/2018 18:52:06
[2018-06-12] MEDS ORDERED: ALPRAZolam 0.25 MG Tablet PO PRN (22:05)
--- NOTE | 2018-06-12 22:11 | P.HP ---
History of Present Illness Service: [facility] Primary Care Physician: Do Marsha Beasley History of Present Illness: 83-year-old female with a past medical history significant for CAD status post stent placement and pacemaker, hypertension, hyperlipidemia, hypothyroidism, CKD stage III and aortic valve regurgitation presents to the emergency department for the evaluation of altered mental status and shortness of breath. Patient is status post cardiac catheterization done a week ago and had 2 stents placed. Over the weekend, the patient complained of increasing shortness of breath. Per the patient's family, she began to have altered mentation. The patient's daughter reported that she could not recognize family members. During the time of our interview, the patient is alert and oriented 3. She denies any fever/chills. Reports that she came to the hospital for evaluation of bronchitis and a cough. Does not have recollection of altered mental status. Review of Systems Denies fever or chills Denies blurry vision, otorrhea, rhinorrhea No chest pain, palpitations No abdominal pain Denies constipation/diarrhea/nausea/vomiting Denies muscle pain Denies focal weakness No rashes All other systems reviewed negative except as stated in HPI PMFSH - History History Provided By: Patient, Family Member - Medical History Medical History: Medical History (Last Reviewed 06/12/18 @ 14:59 by JOSEMANUEL Veloz) Aortic stenosis CAD (coronary artery disease) COPD (chronic obstructive pulmonary disease) Diabetes mellitus FHx: total knee replacement GERD (gastroesophageal reflux disease) High cholesterol Hypertension Pacemaker Sarcoidosis of lung Thyroid disease - Surgical History Surgical History: Surgical History (Last Reviewed 06/12/18 @ 14:59 by JOSEMANUEL Veloz) H/O cardiac catheterization H/O hernia repair H/O shoulder replacement H/O total hysterectomy History of appendectomy History of cholecystectomy Hx of cataract surgery - Family History Family History: Family History (Last Updated 06/12/18 @ 22:03 by Marva Arreola MD) Other Family history normal - Tobacco History Second Hand Smoke Exposure: Yes Smoking Status: Never smoker - Alcohol History How Often Do You Have a Drink Containing Alcohol: Never - Substance Use History Substance History: No History of Abuse - Travel History Recent Travel in the [place] Within the Last 8 Weeks: No Recent Travel Out of the Country Within the Last 8 Weeks: No - Immunization History Tetanus Immunization: Unsure Hx Influenza Vaccine This Season: Yes Medications and Allergies Active Medications: Active Medications Al Hydroxide/Mg Hydroxide (Milk Of Magnesia Liq) 30 ml PO Q12H PRN PRN Reason: Mild Constipation Bisacodyl (Dulcolax Supp) 10 mg RECTAL DAILY PRN PRN Reason: SEVERE CONSITIPATION Ceftriaxone Sodium 1,000 mg/ (Sodium Chloride) 100 mls @ 200 mls/hr IV.SIG Q24H CARLI Lactulose (Lactulose Liq) 30 ml PO DAILY PRN PRN Reason: SEVERE CONSITIPATION Sennosides (Senokot) 17.2 mg PO Q12H PRN PRN Reason: Moderate Constipation Sodium Chloride (Ns Flush) 2 ml IV.FLUSH PRN PRN PRN Reason: FLUSH AFTER USING IV ACCESS Allergies Allergy/AdvReac Type Severity Reaction Status Date / Time vancomycin Allergy Mild ITCHING, Verified 05/09/18 10:23 RASH citalopram Allergy Unknown unknown Verified 06/12/18 14:33 hyoscyamine Allergy Unknown unknown Verified 06/12/18 14:33 meperidine Allergy Unknown unknown Verified 06/12/18 14:33 Sulfa (Sulfonamide Allergy Unknown Anaphylaxis Verified 06/12/18 14:33 Antibiotics) sulfamethoxazole Allergy Unknown Anaphylaxis Verified 06/12/18 14:33 trimethoprim Allergy Unknown Anaphylaxis Verified 06/12/18 14:33 levofloxacin AdvReac Unknown Cramping Verified 06/12/18 14:33 of the Muscles morphine AdvReac Unknown Hallucinati Verified 06/12/18 14:33 ons Home Medications Medication Instructions Recorded Confirmed Type albuterol sulfate [Ventolin HFA] 2 puff INHALATION Q4HR 05/07/18 06/12/18 History ascorbic acid (vitamin C) [Vitamin 500 mg PO DAILY 05/07/18 06/12/18 History C] aspirin [Aspirin Low Dose] 81 mg PO DAILY 05/07/18 06/12/18 History biotin 5 mg PO DAILY 05/07/18 06/12/18 History cetirizine [Zyrtec] 10 mg PO DAILY 05/07/18 06/12/18 History cholecalciferol (vitamin D3) 5,000 unit PO DAILY 05/07/18 06/12/18 History cinnamon bark [Cinnamon] 1,000 mg PO DAILY 05/07/18 06/12/18 History coenzyme Q10 100 mg PO DAILY 05/07/18 06/12/18 History cyanocobalamin (vitamin B-12) 1,000 mcg PO DAILY 05/07/18 06/12/18 History dicyclomine 10 mg PO BID 05/07/18 06/12/18 History fluticasone 2 spray INTRANASAL DAILY 05/07/18 06/12/18 History furosemide 10 mg PO DAILY 05/07/18 06/12/18 History levalbuterol HCl 1.25 mg INHALATION Q4-6H PRN 05/07/18 06/12/18 History levothyroxine 50 mcg PO WEEKLY 05/07/18 06/12/18 History levothyroxine See Label Instructions .ROUTE 05/07/18 06/12/18 History .COMPLEX losartan 50 mg PO DAILY 05/07/18 06/12/18 History multivitamin [Multiple Vitamins] 1 tab PO DAILY 05/07/18 06/12/18 History pantoprazole 40 mg PO DAILY 05/07/18 06/12/18 History rosuvastatin 10 mg PO HS 05/07/18 06/12/18 History Saccharomyces boulardii 500 mg PO BID 06/12/18 06/12/18 History alprazolam [Xanax] 0.25 mg PO Q6HR PRN 06/12/18 06/12/18 History dextromethorphan-guaifenesin 1 tab PO Q12H PRN 06/12/18 06/12/18 History [Mucinex DM] prednisone 10 mg PO DAILY PRN 06/12/18 06/12/18 History sennosides-docusate sodium [Senna 1 tab PO DAILY 06/12/18 06/12/18 History Plus] tramadol 50 mg PO DAILY PRN 06/12/18 06/12/18 History Exam Vital signs: Vital Signs 06/12/18 13:25 06/12/18 14:58 06/12/18 16:41 Temperature 98.5 F Pulse Rate 80 76 80 Respiratory Rate 18 18 24 Blood Pressure 123/58 L 124/60 Pulse Oximetry 92 L 94 L 94 L 06/12/18 17:32 06/12/18 19:00 06/12/18 20:00 Temperature Pulse Rate 78 84 Respiratory Rate 13 16 Blood Pressure 134/61 134/65 Pulse Oximetry 93 L 95 95 Intake & Output 06/12/18 06/12/1818 06:59 18:59 06:59 Intake Total 100 / 100 Balance 100 / 100 Weight 70.307 kg Intake: IV 100 / 100 Rocephin Inj 1,000 MG In NS Inj 100 / 100 100 ML @ 200 mls/hr IV.SIG ONCE ONE Rx#:[id number] Narrative: Gen.: No acute distress Head: Normocephalic. Atraumatic. EENT: Pupils equal round and reactive to light. Nose without drainage. Airway intact. Throat without injection. Cardiovascular: Regular rate and rhythm. No murmurs, rubs or gallops. Respiratory: Lungs clear to auscultation bilaterally. No wheezes or rhonchi. Abdomen: Soft, nontender, nondistended. No peritoneal signs. Musculoskeletal: No gross deformities. No edema. Skin: No obvious rashes or erythema. Neuro: Sensory and motor grossly intact. Cranial nerves II through XII grossly intact. Alert and oriented 3. Results - Labs CBC & Chem 7: 06/12/18 14:50 06/12/18 14:50 Labs: Laboratory Results - last 24 hr 06/12/18 06/12/18 06/12/18 14:50 14:50 14:50 WBC 7.6 RBC 3.72 L Hgb 12.1 Hct 34.1 L MCV 91.8 MCH 32.7 MCHC 35.6 RDW 14.6 Plt Count 290 D MPV 7.9 Neut % (Auto) 51.6 Lymph % (Auto) 35.0 Clarke % (Auto) 9.6 H Eos % (Auto) 2.9 Baso % (Auto) 0.9 Neut # (Auto) 3.9 Lymph # (Auto) 2.7 Clarke # (Auto) 0.7 Eos # (Auto) 0.2 Baso # (Auto) 0.1 WBC Differential . Differential Comment Auto diff final PT 10.6 INR 1.0 APTT 24.5 Sodium 139 Potassium 4.1 Chloride 102 Carbon Dioxide 27.7 Anion Gap 9 BUN 23 H Creatinine 1.66 H Estimated GFR 30 L Random Glucose 118 H Calcium 8.6 Magnesium 1.7 Total Bilirubin 0.4 AST 13 L ALT 16 Alkaline Phosphatase 73 Total Creatine Kinase 50 Troponin I 0.05 B-Natriuretic Peptide Total Protein 6.9 Albumin 3.2 L Urine Color Urine Clarity Urine pH Ur Specific [place] Urine Protein Urine Glucose (UA) Urine Ketones Urine Occult Blood Urine Nitrate Urine Bilirubin Urine Urobilinogen Ur Leukocyte Esterase Urine RBC Urine WBC Ur Squamous Epith Cells Urine Bacteria Hyaline Casts Urine Mucus Micro UA Comment Urine Culture Comments 06/12/18 06/12/18 14:50 16:16 WBC RBC Hgb Hct MCV MCH MCHC RDW Plt Count MPV Neut % (Auto) Lymph % (Auto) Clarke % (Auto) Eos % (Auto) Baso % (Auto) Neut # (Auto) Lymph # (Auto) Clarke # (Auto) Eos # (Auto) Baso # (Auto) WBC Differential Differential Comment PT INR APTT Sodium Potassium Chloride Carbon Dioxide Anion Gap BUN Creatinine Estimated GFR Random Glucose Calcium Magnesium Total Bilirubin AST ALT Alkaline Phosphatase Total Creatine Kinase Troponin I B-Natriuretic Peptide 325 H Total Protein Albumin Urine Color Yellow Urine Clarity Clear Urine pH 5.0 Ur Specific [place] 1.009 Urine Protein Negative Urine Glucose (UA) Negative Urine Ketones Negative Urine Occult Blood Moderate H Urine Nitrate Negative Urine Bilirubin Negative Urine Urobilinogen Less than 2 Ur Leukocyte Esterase Small H Urine RBC 3 Urine WBC 15 H Ur Squamous Epith Cells <1 Urine Bacteria Rare H Hyaline Casts 4 Urine Mucus Few H Micro UA Comment Culture indicated Urine Culture Comments Culture indicated - Imaging Impressions Chest X-Ray 06/12/18 14:11 CONCLUSION: 1. Old granulomatous disease. 2. No acute cardiopulmonary process. 3. Right shoulder arthroplasty. Chronic left rotator cuff injury. Caprini VTE Risk Assessment Caprini VTE Risk Assessment: Moderate/High Risk (score >= 2) Caprini Risk Assessment Model: Point Value = 1 Point Value = 2 Point Value = 3 Point Value = 5 Age 41-60 Minor surgery BMI > 25 kg/m2 Swollen legs Varicose veins or History of unexplained or recurrent spontaneous Oral contraceptives or hormone replacement Sepsis (< 1 month) Serious lung disease, including pneumonia (< 1 month) Abnormal pulmonary function Acute myocardial infarction Congestive heart failure (< 1 month) History of inflammatory bowel disease Medical patient at bed rest Age 61-74 Arthroscopic surgery Major open surgery (> 45 min) Laparoscopic surgery (> 45 min) Malignancy Confined to bed (> 72 hours) Immobilizing plaster cast Central venous access Age >= 75 History of VTE Family history of VTE Factor V Leiden Prothrombin [id number] Lupus anticoagulant Anticardiolipin antibodies Elevated serum homocysteine Heparin-induced thrombocytopenia Other congenital or acquired thrombophilia Stroke (< 1 month) Elective arthroplasty Hip, pelvis, or leg fracture Acute spinal cord injury (< 1 month) Prophylaxis Regimen: Total Risk Factor Score Risk Level Prophylaxis Regimen 0-1 Low Early ambulation 2 Moderate Order ONE of the following: *Sequential Compression Device (SCD) *Heparin 5000 units SQ BID 3-4 Higher Order ONE of the following medications: *Heparin 5000 units SQ TID *Enoxaparin/Lovenox 40 mg SQ daily (WT < 150 kg, CrCl > 30 mL/min) *Enoxaparin/Lovenox 30 mg SQ daily (WT < 150 kg, CrCl > 10-29 mL/min) *Enoxaparin/Lovenox 30 mg SQ BID (WT < 150 kg, CrCl > 30 mL/min) AND/OR *Sequential Compression Device (SCD) 5 or more Highest Order ONE of the following medications: *Heparin 5000 units SQ TID (Preferred with Epidurals) *Enoxaparin/Lovenox 40 mg SQ daily (WT < 150 kg, CrCl > 30 mL/min) *Enoxaparin/Lovenox 30 mg SQ daily (WT < 150 kg, CrCl > 10-29 mL/min) *Enoxaparin/Lovenox 30 mg SQ BID (WT < 150 kg, CrCl > 30 mL/min) AND *Sequential Compression Device (SCD) Assessment and Plan - Plan Assessment/plan: 1. UTI May be the source of patient's altered mental status UA consistent with urinary tract infection Rocephin Urine culture pending 2. Altered mental status May be secondary to above No current deficits Head CT pending 3. Hypertension/CAD Continue home aspirin, Coreg, Plavix, losartan 4. Hypothyroidism/GERD/hyperlipidemia Continue home medications 5. Chronic kidney disease, stage III Creatinine 1.66, baseline for the patient Monitor renal function FEN Cardiac diet Electrolytes: Monitor and replete as needed Heparin
--- NOTE | 2018-06-12 22:55 | CT ---
EXAM DATE: 06/12/2018 10:45 PM EDT AGE/SEX: 83 years / Female INDICATIONS: Altered mental status. CLINICAL DATA: This is the patient's initial encounter. Patient reports that signs and symptoms have been present for 1 day and indicates a pain score of 5/10. MEDICAL/SURGICAL HISTORY: Cardiovascular disease. Chronic obstructive pulmonary disease. Appendect fléix. Cholecystectomy. Hysterectomy. RADIATION DOSE: 42.43 CTDI (mGy) COMPARISON: [facility], CT BRAIN W/O CONTRAST, 10/16/2011. . TECHNIQUE: CT of the head without contrast. Using automated exposure control and adjustment of the mA and/or kV according to patient size, radiation dose was kept as low as reasonably achievable to ob tain optimal diagnostic quality images. DICOM format image data is available electronically for revi ew and comparison. FINDINGS: Cerebrum: The ventricles are normal for age with mild to moderate atrophy and chronic small vessel i schemic change. No evidence of midline shift, mass lesion, hemorrhage or acute infarction. No extraa xial fluid collections are seen. Posterior Fossa: The cerebellum and brainstem are intact. The 4th ventricle is midline. The cerebe llopontine angle is unremarkable. Extracranial: The visualized portion of the orbits is intact. There is opacification of several ethm oidal air cells and there is a coastal thickening in the right sphenoid sinus. Skull: The calvaria is intact. No evidence of skull fracture. CONCLUSION: 1. No acute hemorrhage or mass effect. 2. Opacification of several ethmoidal air cells and the left sphenoid sinus. 3. Atrophy and chronic small vessel ischemic change. . Electronically signed by: Benito Pino MD 06/12/2018 10:53 PM EDT
[2018-06-13] MEDS ORDERED: guaiFENesin/Dextromethorphan 200 MG/20 MG 10 ML UDC PO ONE (02:12)
[2018-06-13] MEDS: Naphazoline 0.012% Opth Drops 15 ML Bottle EACH EYE PRN ×2 (05:46→20:13)
[2018-06-13] MEDS: Levothyroxine 75 MCG Tablet PO SCH (05:46)
[2018-06-13] MEDS: Dicyclomine 10 MG Capsule PO SCH ×2 (08:04→20:12)
[2018-06-13] MEDS: Furosemide 20 MG Tablet PO SCH (08:06)
[2018-06-13] MEDS: Heparin - SQ 10,000 UNITS/ML Vial SQ SCH ×2 (08:07→20:13)
--- NOTE | 2018-06-13 10:15 | P.PNIM ---
Subjective Interval history: 83-year-old female with a past medical history significant for CAD status post stent placement and pacemaker, hypertension, hyperlipidemia, hypothyroidism, CKD stage III and aortic valve regurgitation presents to the emergency department for the evaluation of altered mental status and shortness of breath. Patient is status post cardiac catheterization done a week ago and had 2 stents placed. Over the weekend, the patient complained of increasing shortness of breath. Per the patient's family, she began to have altered mentation. The patient's daughter reported that she could not recognize family members. During the time of our interview, the patient is alert and oriented 3. She denies any fever/chills. Reports that she came to the hospital for evaluation of bronchitis and a cough. Does not have recollection of altered mental status. 8-14 TREATING HER FOR A UTI BUT NOW HAVING A COUGH DW RN AND PT AND FAMILY WILL GET PT AND OT MUCINEX AM LABS Physical Exam Vital signs: Vital Signs 06/12/18 13:25 06/12/18 14:58 06/12/18 16:41 Temperature 98.5 F Pulse Rate 80 76 80 Respiratory Rate 18 18 24 Blood Pressure 123/58 L 124/60 Pulse Oximetry 92 L 94 L 94 L 06/12/18 17:32 06/12/18 19:00 06/12/18 20:00 Temperature Pulse Rate 78 84 Respiratory Rate 13 16 Blood Pressure 134/61 134/65 Pulse Oximetry 93 L 95 95 06/12/18 23:50 06/13/18 07:35 06/13/18 08:00 Temperature 98.3 F 97.8 F Pulse Rate 76 84 Respiratory Rate 17 16 Blood Pressure 158/68 H 156/68 H Pulse Oximetry 95 95 98 Intake & Output 06/12/18 06/13/18 06/13/18 18:59 06:59 18:59 Intake Total 100 / 100 Balance 100 / 100 Weight 70.307 kg 70.307 kg Intake: IV 100 / 100 Rocephin Inj 1,000 MG In NS Inj 100 / 100 100 ML @ 200 mls/hr IV.SIG ONCE ONE Rx#:[id number] Other: Weight On Admission 70.307 kg Narrative: Gen.: No acute distress Head: Normocephalic. Atraumatic. EENT: Pupils equal round and reactive to light. Nose without drainage. Airway intact. Throat without injection. Cardiovascular: Regular rate and rhythm. No murmurs, rubs or gallops. Respiratory: Lungs clear to auscultation bilaterally. No wheezes or rhonchi. Abdomen: Soft, nontender, nondistended. No peritoneal signs. Musculoskeletal: No gross deformities. No edema. Skin: No obvious rashes or erythema. Neuro: Sensory and motor grossly intact. Cranial nerves II through XII grossly intact. Alert and oriented 3. Results - Labs CBC & Chem 7: 06/13/18 10:52 06/13/18 10:52 Laboratory Results - last 24 hr 06/12/18 06/12/18 06/12/18 14:50 14:50 14:50 WBC 7.6 RBC 3.72 L Hgb 12.1 Hct 34.1 L MCV 91.8 MCH 32.7 MCHC 35.6 RDW 14.6 Plt Count 290 D MPV 7.9 Neut % (Auto) 51.6 Lymph % (Auto) 35.0 Major % (Auto) 9.6 H Eos % (Auto) 2.9 Baso % (Auto) 0.9 Neut # (Auto) 3.9 Lymph # (Auto) 2.7 Major # (Auto) 0.7 Eos # (Auto) 0.2 Baso # (Auto) 0.1 WBC Differential . Differential Comment Auto diff final PT 10.6 INR 1.0 APTT 24.5 Sodium 139 Potassium 4.1 Chloride 102 Carbon Dioxide 27.7 Anion Gap 9 BUN 23 H Creatinine 1.66 H Estimated GFR 30 L Random Glucose 118 H Calcium 8.6 Magnesium 1.7 Total Bilirubin 0.4 AST 13 L ALT 16 Alkaline Phosphatase 73 Total Creatine Kinase 50 Troponin I 0.05 B-Natriuretic Peptide Total Protein 6.9 Albumin 3.2 L Urine Color Urine Clarity Urine pH Ur Specific [place] Urine Protein Urine Glucose (UA) Urine Ketones Urine Occult Blood Urine Nitrate Urine Bilirubin Urine Urobilinogen Ur Leukocyte Esterase Urine RBC Urine WBC Ur Squamous Epith Cells Urine Bacteria Hyaline Casts Urine Mucus Micro UA Comment Urine Culture Comments 06/12/18 06/12/18 14:50 16:16 WBC RBC Hgb Hct MCV MCH MCHC RDW Plt Count MPV Neut % (Auto) Lymph % (Auto) Major % (Auto) Eos % (Auto) Baso % (Auto) Neut # (Auto) Lymph # (Auto) Major # (Auto) Eos # (Auto) Baso # (Auto) WBC Differential Differential Comment PT INR APTT Sodium Potassium Chloride Carbon Dioxide Anion Gap BUN Creatinine Estimated GFR Random Glucose Calcium Magnesium Total Bilirubin AST ALT Alkaline Phosphatase Total Creatine Kinase Troponin I B-Natriuretic Peptide 325 H Total Protein Albumin Urine Color Yellow Urine Clarity Clear Urine pH 5.0 Ur Specific [place] 1.009 Urine Protein Negative Urine Glucose (UA) Negative Urine Ketones Negative Urine Occult Blood Moderate H Urine Nitrate Negative Urine Bilirubin Negative Urine Urobilinogen Less than 2 Ur Leukocyte Esterase Small H Urine RBC 3 Urine WBC 15 H Ur Squamous Epith Cells <1 Urine Bacteria Rare H Hyaline Casts 4 Urine Mucus Few H Micro UA Comment Culture indicated Urine Culture Comments Culture indicated - Imaging Impressions Head CT 06/12/18 00:00 CONCLUSION: 1. No acute hemorrhage or mass effect. 2. Opacification of several ethmoidal air cells and the left sphenoid sinus. 3. Atrophy and chronic small vessel ischemic change. . Chest X-Ray 06/12/18 14:11 CONCLUSION: 1. Old granulomatous disease. 2. No acute cardiopulmonary process. 3. Right shoulder arthroplasty. Chronic left rotator cuff injury. Assessment and Plan - Plan 1. UTI May be the source of patient's altered mental status UA consistent with urinary tract infection Rocephin Urine culture pending- NO GROWTH SO FAR 2. Altered mental status May be secondary to above No current deficits Head CT pending 3. Hypertension/CAD Continue home aspirin, Coreg, Plavix, losartan 4. Hypothyroidism/GERD/hyperlipidemia Continue home medications 5. Chronic kidney disease, stage III Creatinine 1.66, baseline for the patient Monitor renal function PT AND OT FEN Cardiac diet Electrolytes: Monitor and replete as needed Heparin CONSULT PT AND OT Code Status: FULL CODE Discussed Condition With: RN AND PT AND CM Discharge Planning: HOPEFULLY HOME TOMORROW
[2018-06-13 11:02] LABS: Baso # (Auto) 0.1 th/mm3 (0.0-0.2); Baso % (Auto) 0.9 % (0.0-2.0); Eos # (Auto) 0.2 th/mm3 (0.0-0.4); Eos % (Auto) 3.1 % (0.0-4.0); Hematocrit 36.4 % (35.0-46.0); Hemoglobin 12.4 gm/dL (11.6-15.3); Lymph # (Auto) 2.3 th/mm3 (1.0-4.8); Lymph % (Auto) 36.3 % (9.0-44.0); Mean Corpuscular HGB Conc 33.9 % (32.0-36.0); Mean Corpuscular Hemoglobin 31.4 pg (27.0-34.0); Mean Corpuscular Volume 92.6 fL (80.0-100.0); Mean Platelet Volume 7.4 fL (7.0-11.0); Mono # (Auto) 0.5 th/mm3 (0.0-0.9); Mono % (Auto) 8.5 % (0.0-8.0); Neut # (Auto) 3.3 th/mm3 (1.8-7.7); Neut % (Auto) 51.2 % (16.0-70.0); Platelet Count 296 th/mm3 (150-450); Red Blood Count 3.93 mil/mm3 (4.00-5.30); Red Cell Distribution Width 14.9 % (11.6-17.2); White Blood Count 6.4 th/mm3 (4.0-11.0)
[2018-06-13 11:17] LABS: Albumin 3.3 g/dL (3.4-5.0); Anion Gap 8 meq/L (5-15); Aspartate Aminotransferase 12 U/L (15-37); Blood Urea Nitrogen 16 mg/dL (7-18); Carbon Dioxide 27.9 meq/L (21.0-32.0); Chloride 106 meq/L (98-107); Glomerular Filtration Rate 39 mL/min (>89); Glucose,Random 156 mg/dL (74-106); Magnesium 1.6 mg/dL (1.5-2.5); Potassium 4.2 meq/L (3.5-5.1); Sodium 142 meq/L (136-145)
[2018-06-13 11:18] LABS: Alanine Aminotransferase 14 U/L (10-53); Phosphorus 3.2 mg/dL (2.5-4.9)
[2018-06-13 11:27] LABS: Alkaline Phosphatase 72 U/L (45-117); Free T4 (Free Thyroxine) 1.04 ng/dL (0.76-1.46); Total Protein 7.1 g/dL (6.4-8.2)
[2018-06-13] MEDS: Senna/Docusate Sodium 8.6/50 MG Tablet PO SCH (12:58)
[2018-06-13] MEDS: Lactobacillus Acidophilus/L. Spores Tablet PO SCH ×2 (13:09→19:16)
[2018-06-13] MEDS: guaiFENesin 600 MG ER Tablet PO SCH ×2 (14:05→20:12)
[2018-06-13 17:31] LABS: Hemoglobin A1c 6.5 % (4.3-6.0)
[2018-06-14] MEDS: Naphazoline 0.012% Opth Drops 15 ML Bottle EACH EYE PRN ×2 (05:22→09:03)
[2018-06-14] MEDS: Levothyroxine 75 MCG Tablet PO SCH (05:22)
[2018-06-14 08:02] LABS: Baso # (Auto) 0.1 th/mm3 (0.0-0.2); Baso % (Auto) 1.2 % (0.0-2.0); Eos # (Auto) 0.3 th/mm3 (0.0-0.4); Eos % (Auto) 3.9 % (0.0-4.0); Hematocrit 35.8 % (35.0-46.0); Hemoglobin 12.5 gm/dL (11.6-15.3); Lymph # (Auto) 2.7 th/mm3 (1.0-4.8); Lymph % (Auto) 40.8 % (9.0-44.0); Mean Corpuscular HGB Conc 34.8 % (32.0-36.0); Mean Corpuscular Hemoglobin 31.7 pg (27.0-34.0); Mean Platelet Volume 7.6 fL (7.0-11.0); Mono # (Auto) 0.6 th/mm3 (0.0-0.9); Mono % (Auto) 9.7 % (0.0-8.0); Neut # (Auto) 2.9 th/mm3 (1.8-7.7); Neut % (Auto) 44.4 % (16.0-70.0); Platelet Count 317 th/mm3 (150-450); Red Blood Count 3.93 mil/mm3 (4.00-5.30); Red Cell Distribution Width 14.4 % (11.6-17.2); White Blood Count 6.5 th/mm3 (4.0-11.0)
[2018-06-14 08:10] VITALS: RESP 18
[2018-06-14 08:27] LABS: Albumin 3.2 g/dL (3.4-5.0); Anion Gap 9 meq/L (5-15); Aspartate Aminotransferase 14 U/L (15-37); Blood Urea Nitrogen 13 mg/dL (7-18); Carbon Dioxide 28.2 meq/L (21.0-32.0); Chloride 105 meq/L (98-107); Glomerular Filtration Rate 46 mL/min (>89); Glucose,Random 125 mg/dL (74-106); Magnesium 1.8 mg/dL (1.5-2.5); Potassium 3.9 meq/L (3.5-5.1); Sodium 142 meq/L (136-145)
[2018-06-14 08:31] LABS: Alanine Aminotransferase 13 U/L (10-53); Alkaline Phosphatase 66 U/L (45-117); Phosphorus 3.8 mg/dL (2.5-4.9); Total Protein 6.6 g/dL (6.4-8.2)
[2018-06-14] MEDS: Dicyclomine 10 MG Capsule PO SCH (09:00)
[2018-06-14] MEDS: Senna/Docusate Sodium 8.6/50 MG Tablet PO SCH (09:01)
[2018-06-14] MEDS: Furosemide 20 MG Tablet PO SCH (09:02)
[2018-06-14] MEDS: Heparin - SQ 10,000 UNITS/ML Vial SQ SCH (09:19)
[2018-06-14] MEDS: Lactobacillus Acidophilus/L. Spores Tablet PO SCH (09:20)
[2018-06-14] MEDS: guaiFENesin 600 MG ER Tablet PO SCH (09:20)
--- NOTE | 2018-06-14 10:11 | P.PNIM ---
Subjective Interval history: 83-year-old female with a past medical history significant for CAD status post stent placement and pacemaker, hypertension, hyperlipidemia, hypothyroidism, CKD stage III and aortic valve regurgitation presents to the emergency department for the evaluation of altered mental status and shortness of breath. Patient is status post cardiac catheterization done a week ago and had 2 stents placed. Over the weekend, the patient complained of increasing shortness of breath. Per the patient's family, she began to have altered mentation. The patient's daughter reported that she could not recognize family members. During the time of our interview, the patient is alert and oriented 3. She denies any fever/chills. Reports that she came to the hospital for evaluation of bronchitis and a cough. Does not have recollection of altered mental status. 8 TREATING HER FOR A UTI BUT NOW HAVING A COUGH DW RN AND PT AND FAMILY WILL GET PT AND OT MUCINEX AM LABS 06-14 has a cough but feels better wants to go home will dc to home on po antibiotics FOUND TO HAVE E.COLI UTI MDR WILL USE AUGMENTIN WHICH IS COVERED IN SENSITIVITIES Physical Exam Vital signs: Vital Signs 06/13/18 12:00 06/13/18 16:00 06/13/18 20:00 Temperature 98.5 F 98.1 F 98.5 F Pulse Rate 85 88 93 H Respiratory Rate 16 16 20 Blood Pressure 140/97 H 178/76 H 106/56 L Pulse Oximetry 96 94 L 95 06/13/18 20:14 06/14/18 00:00 06/14/18 04:00 Temperature 98.3 F 97.3 F L Pulse Rate 81 83 Respiratory Rate 18 17 Blood Pressure 131/61 141/63 H Pulse Oximetry 95 94 L 94 L 06/14/18 08:00 Temperature 98.1 F Pulse Rate 97 H Respiratory Rate 18 Blood Pressure 163/76 H Pulse Oximetry 96 Intake & Output 06/13/18 06/14/18 06/14/18 18:59 06:59 18:59 Intake Total 580 / 580 300 / 300 Balance 580 / 580 300 / 300 Weight 70.6 kg Intake: IV 100 / 100 Rocephin Inj 1,000 MG In NS Inj 100 / 100 100 ML @ 200 mls/hr IV.SIG Q24H CARLI Rx#:[id number] Oral 480 / 480 300 / 300 Other: # Voids 1 Narrative: Gen.: No acute distress Head: Normocephalic. Atraumatic. EENT: Pupils equal round and reactive to light. Nose without drainage. Airway intact. Throat without injection. Cardiovascular: Regular rate and rhythm. No murmurs, rubs or gallops. Respiratory: Lungs clear to auscultation bilaterally. No wheezes or rhonchi. Abdomen: Soft, nontender, nondistended. No peritoneal signs. Musculoskeletal: No gross deformities. No edema. Skin: No obvious rashes or erythema. Neuro: Sensory and motor grossly intact. Cranial nerves II through XII grossly intact. Alert and oriented 3. Results - Labs CBC & Chem 7: 06/14/18 06:56 06/14/18 06:56 Laboratory Results - last 24 hr 06/12/18 06/13/18 06/13/18 16:16 10:52 10:52 WBC 6.4 RBC 3.93 L Hgb 12.4 Hct 36.4 MCV 92.6 MCH 31.4 MCHC 33.9 RDW 14.9 Plt Count 296 MPV 7.4 Neut % (Auto) 51.2 Lymph % (Auto) 36.3 [place] % (Auto) 8.5 H Eos % (Auto) 3.1 Baso % (Auto) 0.9 Neut # (Auto) 3.3 Lymph # (Auto) 2.3 [place] # (Auto) 0.5 Eos # (Auto) 0.2 Baso # (Auto) 0.1 WBC Differential . Differential Comment Auto diff final Sodium 142 Potassium 4.2 Chloride 106 Carbon Dioxide 27.9 Anion Gap 8 BUN 16 Creatinine 1.29 H Estimated GFR 39 L Random Glucose 156 H Hemoglobin A1c Calcium 9.0 Phosphorus 3.2 Magnesium 1.6 Total Bilirubin 0.4 AST 12 L ALT 14 Alkaline Phosphatase 72 Total Protein 7.1 Albumin 3.3 L TSH 3.050 Free T4 1.04 Urine Color Yellow Urine Clarity Clear Urine pH 5.0 Ur Specific [place] 1.009 Urine Protein Negative Urine Glucose (UA) Negative Urine Ketones Negative Urine Occult Blood Moderate H Urine Nitrate Negative Urine Bilirubin Negative Urine Urobilinogen Less than 2 Ur Leukocyte Esterase Small H Urine RBC 3 Urine WBC 15 H Ur Squamous Epith Cells <1 Urine Bacteria Rare H Hyaline Casts 4 Urine Mucus Few H Micro UA Comment Culture indicated Urine Culture Comments Culture indicated 06/13/18 06/14/18 06/14/18 10:52 06:56 06:56 WBC 6.5 RBC 3.93 L Hgb 12.5 Hct 35.8 MCV 91.0 MCH 31.7 MCHC 34.8 RDW 14.4 Plt Count 317 MPV 7.6 Neut % (Auto) 44.4 Lymph % (Auto) 40.8 [place] % (Auto) 9.7 H Eos % (Auto) 3.9 Baso % (Auto) 1.2 Neut # (Auto) 2.9 Lymph # (Auto) 2.7 [place] # (Auto) 0.6 Eos # (Auto) 0.3 Baso # (Auto) 0.1 WBC Differential . Differential Comment Auto diff final Sodium 142 Potassium 3.9 Chloride 105 Carbon Dioxide 28.2 Anion Gap 9 BUN 13 Creatinine 1.13 H Estimated GFR 46 L Random Glucose 125 H Hemoglobin A1c 6.5 H Calcium 9.0 Phosphorus 3.8 Magnesium 1.8 Total Bilirubin 0.4 AST 14 L ALT 13 Alkaline Phosphatase 66 Total Protein 6.6 Albumin 3.2 L TSH Free T4 Urine Color Urine Clarity Urine pH Ur Specific [place] Urine Protein Urine Glucose (UA) Urine Ketones Urine Occult Blood Urine Nitrate Urine Bilirubin Urine Urobilinogen Ur Leukocyte Esterase Urine RBC Urine WBC Ur Squamous Epith Cells Urine Bacteria Hyaline Casts Urine Mucus Micro UA Comment Urine Culture Comments Microbiology 06/12/18 16:16 Clean Catch Urine Urine Culture - Final Escherichia coli Multidrug Resistant 06/12/18 14:50 Blood - Peripheral Aerobic Blood Culture - Preliminary No growth in 1 day 06/12/18 14:50 Blood - Peripheral Anaerobic Blood Culture - Preliminary No growth in 1 day 06/12/18 14:55 Blood - Peripheral Aerobic Blood Culture - Preliminary No growth in 1 day 06/12/18 14:55 Blood - Peripheral Anaerobic Blood Culture - Preliminary No growth in 1 day - Imaging Head CT 06/12/18 00:00 CONCLUSION: 1. No acute hemorrhage or mass effect. 2. Opacification of several ethmoidal air cells and the left sphenoid sinus. 3. Atrophy and chronic small vessel ischemic change. . Chest X-Ray 06/12/18 14:11 CONCLUSION: 1. Old granulomatous disease. 2. No acute cardiopulmonary process. 3. Right shoulder arthroplasty. Chronic left rotator cuff injury. - Procedures NONE Assessment and Plan - Plan 1. UTI May be the source of patient's altered mental status UA consistent with urinary tract infection Rocephin Urine culture pending- E. COLI MDR BUT SENSITIVE TO AUGMENTIN 2. Altered mental status May be secondary to above No current deficits Head CT pending RESOLVED 3. Hypertension/CAD Continue home aspirin, Coreg, Plavix, losartan 4. Hypothyroidism/GERD/hyperlipidemia Continue home medications 5. Chronic kidney disease, stage III Creatinine 1.66, baseline for the patient Monitor renal function PT AND OT FEN Cardiac diet Electrolytes: Monitor and replete as needed Heparin CONSULT PT AND OT DC TO HOME TODAY Code Status: FULL CODE Discussed Condition With: RN AND PT AND CM Discharge Planning: DC TO HOME TODAY
--- NOTE | 2018-06-14 10:19 | P.DS ---
Date of admission: 06/12/18 18:07 Primary care physician: Do Marsha Beasley Attending physician on discharge: Ignacio Jasmine Anticipated date of discharge: 06/14/18 Brief History from admission: 83-year-old female with a past medical history significant for CAD status post stent placement and pacemaker, hypertension, hyperlipidemia, hypothyroidism, CKD stage III and aortic valve regurgitation presents to the emergency department for the evaluation of altered mental status and shortness of breath. Patient is status post cardiac catheterization done a week ago and had 2 stents placed. Over the weekend, the patient complained of increasing shortness of breath. Per the patient's family, she began to have altered mentation. The patient's daughter reported that she could not recognize family members. During the time of our interview, the patient is alert and oriented 3. She denies any fever/chills. Reports that she came to the hospital for evaluation of bronchitis and a cough. Does not have recollection of altered mental status. DS: Diagnosis - Discharge Diagnosis (1) E. coli UTI Status: Acute (2) Acute UTI Status: Acute (3) Acute alteration in mental status Status: Acute (4) Acute renal insufficiency Status: Acute (5) Aortic stenosis, severe Status: Chronic (6) CAD (coronary artery disease) Status: Chronic (7) CHF (congestive heart failure) Status: Chronic (8) Pleural effusion Status: Chronic DS: Medications - Discharge Medications Prescriptions: amoxicillin-pot clavulanate 1 tab PO Q12HR #28 tab dextromethorphan-guaifenesin [Mucinex DM] 1 tab PO Q12H PRN #60 tab PRN Reason: Cough DS: Summary Hospital Course: 83-year-old female with a past medical history significant for CAD status post stent placement and pacemaker, hypertension, hyperlipidemia, hypothyroidism, CKD stage III and aortic valve regurgitation presents to the emergency department for the evaluation of altered mental status and shortness of breath. Patient is status post cardiac catheterization done a week ago and had 2 stents placed. Over the weekend, the patient complained of increasing shortness of breath. Per the patient's family, she began to have altered mentation. The patient's daughter reported that she could not recognize family members. During the time of our interview, the patient is alert and oriented 3. She denies any fever/chills. Reports that she came to the hospital for evaluation of bronchitis and a cough. Does not have recollection of altered mental status. 06-13 TREATING HER FOR A UTI BUT NOW HAVING A COUGH DW RN AND PT AND FAMILY WILL GET PT AND OT MUCINEX AM LABS 15 has a cough but feels better wants to go home will dc to home on po antibiotics FOUND TO HAVE E.COLI UTI MDR WILL USE AUGMENTIN WHICH IS COVERED IN SENSITIVITIES - Time Spent with Patient Total time spent providing and/or coordinating discharge services: Less than 30 minutes - Quality: VTE Deep Vein Thrombosis/Pulmonary Embolism Present on Admission: No Exam Vital signs: Vital Signs 06/13/18 12:00 06/13/18 16:00 06/13/18 20:00 Temperature 98.5 F 98.1 F 98.5 F Pulse Rate 85 88 93 H Respiratory Rate 16 16 20 Blood Pressure 140/97 H 178/76 H 106/56 L Pulse Oximetry 96 94 L 95 06/13/18 20:14 06/14/18 00:00 06/14/18 04:00 Temperature 98.3 F 97.3 F L Pulse Rate 81 83 Respiratory Rate 18 17 Blood Pressure 131/61 141/63 H Pulse Oximetry 95 94 L 94 L 06/14/18 08:00 Temperature 98.1 F Pulse Rate 97 H Respiratory Rate 18 Blood Pressure 163/76 H Pulse Oximetry 96 Intake & Output 06/13/18 06/14/18 06/14/18 18:59 06:59 18:59 Intake Total 580 / 580 300 / 300 Balance 580 / 580 300 / 300 Weight 70.6 kg Intake: IV 100 / 100 Rocephin Inj 1,000 MG In NS Inj 100 / 100 100 ML @ 200 mls/hr IV.SIG Q24H CARLI Rx#:[id number] Oral 480 / 480 300 / 300 Other: # Voids 1 Narrative: Gen.: No acute distress Head: Normocephalic. Atraumatic. EENT: Pupils equal round and reactive to light. Nose without drainage. Airway intact. Throat without injection. Cardiovascular: Regular rate and rhythm. No murmurs, rubs or gallops. Respiratory: Lungs clear to auscultation bilaterally. No wheezes or rhonchi. Abdomen: Soft, nontender, nondistended. No peritoneal signs. Musculoskeletal: No gross deformities. No edema. Skin: No obvious rashes or erythema. Neuro: Sensory and motor grossly intact. Cranial nerves II through XII grossly intact. Alert and oriented 3. Results Procedures completed during hospitalization: NONE Completed studies during hospitalization: Laboratory Results WBC 6.5 th/mm3 (4.0-11.0) 06/14/18 06:56 RBC 3.93 mil/mm3 (4.00-5.30) L 06/14/18 06:56 Hgb 12.5 gm/dL (11.6-15.3) 06/14/18 06:56 Hct 35.8 % (35.0-46.0) 06/14/18 06:56 MCV 91.0 fL (80.0-100.0) 06/14/18 06:56 MCH 31.7 pg (27.0-34.0) 06/14/18 06:56 MCHC 34.8 % (32.0-36.0) 06/14/18 06:56 RDW 14.4 % (11.6-17.2) 06/14/18 06:56 Plt Count 317 th/mm3 (150-450) 06/14/18 06:56 MPV 7.6 fL (7.0-11.0) 06/14/18 06:56 Neut % (Auto) 44.4 % (16.0-70.0) 06/14/18 06:56 Lymph % (Auto) 40.8 % (9.0-44.0) 06/14/18 06:56 [place] % (Auto) 9.7 % (0.0-8.0) H 06/14/18 06:56 Eos % (Auto) 3.9 % (0.0-4.0) 06/14/18 06:56 Baso % (Auto) 1.2 % (0.0-2.0) 06/14/18 06:56 Neut # (Auto) 2.9 th/mm3 (1.8-7.7) 06/14/18 06:56 Lymph # (Auto) 2.7 th/mm3 (1.0-4.8) 06/14/18 06:56 [place] # (Auto) 0.6 th/mm3 (0.0-0.9) 06/14/18 06:56 Eos # (Auto) 0.3 th/mm3 (0.0-0.4) 06/14/18 06:56 Baso # (Auto) 0.1 th/mm3 (0.0-0.2) 06/14/18 06:56 WBC Differential . 06/14/18 06:56 Differential Comment Auto diff final 06/14/18 06:56 PT 10.6 sec (9.8-11.6) 06/12/18 14:50 INR 1.0 Ratio 06/12/18 14:50 APTT 24.5 sec (24.3-30.1) 06/12/18 14:50 Sodium 142 meq/L (136-145) 06/14/18 06:56 Potassium 3.9 meq/L (3.5-5.1) 06/14/18 06:56 Chloride 105 meq/L (98-107) 06/14/18 06:56 Carbon Dioxide 28.2 meq/L (21.0-32.0) 06/14/18 06:56 Anion Gap 9 meq/L (5-15) 06/14/18 06:56 BUN 13 mg/dL (7-18) 06/14/18 06:56 Creatinine 1.13 mg/dL (0.50-1.00) H 06/14/18 06:56 Estimated GFR 46 mL/min (>89) L 06/14/18 06:56 Random Glucose 125 mg/dL (74-106) H 06/14/18 06:56 Hemoglobin A1c 6.5 % (4.3-6.0) H 06/13/18 10:52 Calcium 9.0 mg/dL (8.5-10.1) 06/14/18 06:56 Phosphorus 3.8 mg/dL (2.5-4.9) 06/14/18 06:56 Magnesium 1.8 mg/dL (1.5-2.5) 06/14/18 06:56 Total Bilirubin 0.4 mg/dL (0.2-1.0) 06/14/18 06:56 AST 14 U/L (15-37) L 06/14/18 06:56 ALT 13 U/L (10-53) 06/14/18 06:56 Alkaline Phosphatase 66 U/L (45-117) 06/14/18 06:56 Total Creatine Kinase 50 U/L (26-192) 06/12/18 14:50 Troponin I 0.05 ng/mL (0.02-0.05) 06/12/18 14:50 B-Natriuretic Peptide 325 pg/mL (0-100) H 06/12/18 14:50 Total Protein 6.6 g/dL (6.4-8.2) 06/14/18 06:56 Albumin 3.2 g/dL (3.4-5.0) L 06/14/18 06:56 TSH 3.050 uIU/mL (0.358-3.740) 06/13/18 10:52 Free T4 1.04 ng/dL (0.76-1.46) 06/13/18 10:52 Urine Color Yellow (Yellw/Straw) 06/12/18 16:16 Urine Clarity Clear (Clear) 06/12/18 16:16 Urine pH 5.0 (5.0-8.5) 06/12/18 16:16 Ur Specific [place] 1.009 (1.002-1.035) 06/12/18 16:16 Urine Protein Negative mg/dL (Neg-Trace) 06/12/18 16:16 Urine Glucose (UA) Negative mg/dL (Negative) 06/12/18 16:16 Urine Ketones Negative mg/dL (Negative) 06/12/18 16:16 Urine Occult Blood Moderate (Negative) H 06/12/18 16:16 Urine Nitrate Negative (Negative) 06/12/18 16:16 Urine Bilirubin Negative (Negative) 06/12/18 16:16 Urine Urobilinogen Less than 2 mg/dL (Less than 2) 06/12/18 16:16 Ur Leukocyte Esterase Small (Negative) H 06/12/18 16:16 Urine RBC 3 /hpf (0-3) 06/12/18 16:16 Urine WBC 15 /hpf (0-5) H 06/12/18 16:16 Ur Squamous Epith Cells <1 /hpf (0-5) 06/12/18 16:16 Urine Bacteria Rare /hpf (None) H 06/12/18 16:16 Hyaline Casts 4 /lpf (0-3) 06/12/18 16:16 Urine Mucus Few /lpf (Occasional) H 06/12/18 16:16 Micro UA Comment Culture indicated 06/12/18 16:16 Urine Culture Comments Culture indicated 06/12/18 16:[address] 06/12/18 00:00 CONCLUSION: 1. No acute hemorrhage or mass effect. 2. Opacification of several ethmoidal air cells and the left sphenoid sinus. 3. Atrophy and chronic small vessel ischemic change. . Chest X-Ray 06/12/18 14:11 CONCLUSION: 1. Old granulomatous disease. 2. No acute cardiopulmonary process. 3. Right shoulder arthroplasty. Chronic left rotator cuff injury. Labs on day of discharge: Labs from last 24 hours 06/14/18 06/14/18 06/13/18 06:56 06:56 10:52 WBC 6.5 RBC 3.93 L Hgb 12.5 Hct 35.8 MCV 91.0 MCH 31.7 MCHC 34.8 RDW 14.4 Plt Count 317 MPV 7.6 Neut % (Auto) 44.4 Lymph % (Auto) 40.8 [place] % (Auto) 9.7 H Eos % (Auto) 3.9 Baso % (Auto) 1.2 Neut # (Auto) 2.9 Lymph # (Auto) 2.7 [place] # (Auto) 0.6 Eos # (Auto) 0.3 Baso # (Auto) 0.1 WBC Differential . Differential Comment Auto diff final Sodium 142 Potassium 3.9 Chloride 105 Carbon Dioxide 28.2 Anion Gap 9 BUN 13 Creatinine 1.13 H Estimated GFR 46 L Random Glucose 125 H Hemoglobin A1c 6.5 H Calcium 9.0 Phosphorus 3.8 Magnesium 1.8 Total Bilirubin 0.4 AST 14 L ALT 13 Alkaline Phosphatase 66 Total Protein 6.6 Albumin 3.2 L TSH Free T4 Urine Color Urine Clarity Urine pH Ur Specific [place] Urine Protein Urine Glucose (UA) Urine Ketones Urine Occult Blood Urine Nitrate Urine Bilirubin Urine Urobilinogen Ur Leukocyte Esterase Urine RBC Urine WBC Ur Squamous Epith Cells Urine Bacteria Hyaline Casts Urine Mucus Micro UA Comment Urine Culture Comments 06/13/18 06/13/18 06/12/18 10:52 10:52 16:16 WBC 6.4 RBC 3.93 L Hgb 12.4 Hct 36.4 MCV 92.6 MCH 31.4 MCHC 33.9 RDW 14.9 Plt Count 296 MPV 7.4 Neut % (Auto) 51.2 Lymph % (Auto) 36.3 [place] % (Auto) 8.5 H Eos % (Auto) 3.1 Baso % (Auto) 0.9 Neut # (Auto) 3.3 Lymph # (Auto) 2.3 [place] # (Auto) 0.5 Eos # (Auto) 0.2 Baso # (Auto) 0.1 WBC Differential . Differential Comment Auto diff final Sodium 142 Potassium 4.2 Chloride 106 Carbon Dioxide 27.9 Anion Gap 8 BUN 16 Creatinine 1.29 H Estimated GFR 39 L Random Glucose 156 H Hemoglobin A1c Calcium 9.0 Phosphorus 3.2 Magnesium 1.6 Total Bilirubin 0.4 AST 12 L ALT 14 Alkaline Phosphatase 72 Total Protein 7.1 Albumin 3.3 L TSH 3.050 Free T4 1.04 Urine Color Yellow Urine Clarity Clear Urine pH 5.0 Ur Specific [place] 1.009 Urine Protein Negative Urine Glucose (UA) Negative Urine Ketones Negative Urine Occult Blood Moderate H Urine Nitrate Negative Urine Bilirubin Negative Urine Urobilinogen Less than 2 Ur Leukocyte Esterase Small H Urine RBC 3 Urine WBC 15 H Ur Squamous Epith Cells <1 Urine Bacteria Rare H Hyaline Casts 4 Urine Mucus Few H Micro UA Comment Culture indicated Urine Culture Comments Culture indicated Preliminary micro results at discharge 06/12/18 14:50 Aerobic Blood Culture - Preliminary Blood - Peripheral No growth in 1 day Anaerobic Blood Culture - Preliminary No growth in 1 day 06/12/18 14:55 Aerobic Blood Culture - Preliminary Blood - Peripheral No growth in 1 day Anaerobic Blood Culture - Preliminary No growth in 1 day - Impressions ITS Impressions Head CT 06/12/18 00:00 CONCLUSION: 1. No acute hemorrhage or mass effect. 2. Opacification of several ethmoidal air cells and the left sphenoid sinus. 3. Atrophy and chronic small vessel ischemic change. . Chest X-Ray 06/12/18 14:11 CONCLUSION: 1. Old granulomatous disease. 2. No acute cardiopulmonary process. 3. Right shoulder arthroplasty. Chronic left rotator cuff injury. Discharge Plan - Discharge Disposition Patient Disposition: Discharge Home - Discharge Condition Condition: Good - Discharge Order Discharge Orders: Discharge Order (Routine); Ordered 06/14/18 Ordered By: Ignacio Jasmine - Discharge Details Anticipated Discharge Date: 06/14/18 Discharge Comment: DC TO HOME TODAY - Physicians Team Primary Care Provider: Do Marsha Beasley Attending Provider: Ignacio Jasmine Other Providers: [facility],Agency ; [employer]
--- NOTE | 2018-06-14 10:50 | P.DCO ---
- Physical Therapy Order: Evaluate and treat, Improve ambulation, Strength and gait training - Occupational Therapy Order: Evaluate and treat, Improve ADL, Gross motor coordination, Fine motor coordination - Home Health Nursing Order: Medical education, Signs/symptoms of disease process, Nursing assessment with vital signs, Telehealth - Home Health Aide Order: To assist in: Bathing and personal care, systems operator and meal prep - Certification I have seen patient Feli Abraham on 06/14/18. My clinical findings support the need for the requested home health care services because: Limited mobility due to disease progression, Patient has SOB, Deconditioned with increased weakness I certify that my clinical findings support that this patient is homebound because: Hx COPD - exertion dyspnea/weakness, Unsteady gait/balance, Need for psychosocial assistance
[2018-06-14] MEDS ORDERED: Amoxicillin/Clavulanate 875/125 MG Tablet PO SCH (11:00)
[2018-06-14 13:19] VITALS: BP 144/67; PULSE 84; TEMP 98.8; O2SAT 93
--- NOTE | 2018-06-14 15:31 | CT ---
EXAM DATE: 06/14/2018 3:04 PM EDT AGE/SEX: 83 years / Female INDICATIONS: Pre operative for transartic valve replacement CLINICAL DATA: This is the patient's initial encounter. Patient reports that signs and symptoms have been present for 1 day and indicates a pain score of 0/10. MEDICAL/SURGICAL HISTORY: Cardiovascular disease. Chronic obstructive pulmonary disease. Diabetes . Hypertension sarcoidosis lung Pacemaker. orthopedic RADIATION DOSE: 11.61 CTDI (mGy) COMPARISON: [facility], CHEST 1V SINGLE AP, 06/12/2018. . TECHNIQUE: Volumetric scanning was performed using a multi-row detector CT scanner during bolus infu peter of 90 ml Omnipaque 350 (iohexol) nonionic water-soluble contrast as a single exam dose. The da ta was post processed with a variety of visualization algorithms including full volume maximum intens ity projection, multi-planar sliding thin slab reformation, curved planar reformation, and surface re ndering techniques. Using automated exposure control and adjustment of the mA and/or kV according to patient size, radiation dose was kept as low as reasonably achievable to obtain optimal diagnostic q uality images. DICOM format image data is available electronically for review and comparison. FINDINGS: CARDIAC: The coronary system is right dominant. Left coronary artery stent in place. Right coronary artery is patent without significant plaque. There is a 2-lead pacemaker in place with leads projecti ng in the right atrium and ventricle. There are no microcalcifications. There is no pericardial effu peter AORTIC ROOT/VALVE: Tricuspid cusps are evident with mild valvular calcifications. The aortic root measures 3.9 cm. Mid thoracic aorta measures 2.7 cm with mild diffuse arthroscopic calcifications. THORACIC AORTA: The thoracic aortic root is normal with standard 3 vessel branching of the great ves sels. There is no evidence of aneurysm or dissection. Moderate calcified plaque at the origin of the arch vessels without significant flow-limiting stenosis. ABDOMINAL AORTA: Mild diffuse calcified plaque in the abdominal aorta without aneurysm or dissection . CELIAC ARTERY: Celiac artery is widely patent. SMA: Mild stenosis of the SMA origin secondary to calcified plaque. CHITRA is patent. RIGHT RENAL ARTERY: Single right renal artery with minimal stenosis secondary to calcified plaque at the origin. LEFT RENAL ARTERY: Single left renal artery without significant stenosis. RIGHT COMMON ILIAC: Mild calcified plaque in the proximal common iliac artery. No flow-limiting sten osis or aneurysm in the iliac arteries. Visualized femoral arteries are patent. The common femoral measures 8 mm. LEFT COMMON ILIAC: Mild calcified plaque in the proximal common iliac artery. No flow-limiting steno sis or aneurysm in the iliac arteries. Visualized femoral arteries are patent. The common femoral m easures 8 mm. THORAX: Lung: Numerous densely calcified granulomas bilaterally. Pleura: No effusion, significant pleural thickening or pneumothorax. Mediastinum: Multiple calcified mediastinal nodes. Osseous Structures: Degenerative changes of the thoracolumbar spine. Soft Tissues: Soft tissues are unremarkable. No significant axillary adenopathy. ABDOMEN/PELVIS: LIVER: Homogeneous density without intrahepatic ductal dilatation. SPLEEN: Homogeneous density without enlargement. PANCREAS: Unremarkable without mass or calcification. KIDNEYS: Kidneys demonstrate symmetrical enhancement with bilateral cortical scarring. No hydronephro sis or radiopaque renal calculi. ADRENAL GLANDS: Unremarkable. BOWEL/MESENTERY: Moderate sigmoid diverticulosis and scattered colonic diverticula. No significant i nflammatory change. Bowel otherwise appears unremarkable. No free fluid or drainable fluid collection s. ABDOMINAL WALL: Intact. RETROPERITONEUM: No evidence of adenopathy in the retrocrural, para-aortic, or deep pelvic regions. BLADDER: Contours are smooth. REPRODUCTIVE: Uterus is likely surgically absent. BONY STRUCTURES: Degenerative spondylosis of the lower lumbar spine. CONCLUSION: 1. CTA TAVR examination, as above. 2. No significant aortic dissection, aneurysm or flow-limiting stenosis. 3. No significant iliac or femoral flow-limiting stenosis, aneurysm or dissection. 4. Ancillary findings include bilateral granulomas, calcified mediastinal nodes consistent with gran ulomatous disease, bilateral renal scarring, and sigmoid diverticulosis. Electronically signed by: Felix Johnson MD 06/14/2018 3:30 PM EDT
== END 2018-06-14 15:54 | disposition home or self-care (01) ==
LOC: NEPHCDU 13:06 → NEDA 13:06 → NEPE 13:06 → NEDA 19:40 → NEPHCDU 19:44
PROVIDERS: ADMIT Hospitalist; ATTEND Hospitalist

== ENCOUNTER 2018-07-05 09:09 | Inpatient (IN) ==
[2018-07-05] MEDS ORDERED: Metoprolol Tartrate 25 MG Tablet PO SCH (09:32)
[2018-07-05] MEDS ORDERED: Chlorhexidine Gluconate 2% 1 Pack (2 Cloths) TOPICAL SCH ×2 (09:32→09:45)
[2018-07-05] MEDS ORDERED: Aspirin 325 MG Tablet PO SCH (09:45)
[2018-07-05] MEDS ORDERED: Mupirocin 2% Nasal Oint Topical Syringe EACH NARE SCH (09:45)
[2018-07-05] MEDS ORDERED: Sodium Chlor 0.9% Inj 500 ML IV.SIG SCH (10:00)
[2018-07-05] MEDS ORDERED: ceFAZolin Inj 2,000 MG in Sodium Chlor 0.9% Inj 100 ML IV.SIG SCH (10:00)
--- NOTE | 2018-07-05 10:04 | P.HPCA ---
History of Present Illness Service: Cardiology Primary Care Physician: DO Beasley Chief Complaint: Severe aortic valve stenosis Inpatient Certification: I certify that the inpatient services were ordered in accordance with Medicare regulations governing the order. This includes certification that hospital inpatient services are reasonable and necessary and in the case of services not specified as inpatient-only under 42 CFR 419.22(n), that they are appropriately provided as inpatient services in accordance to with the 2-midnight benchmark under 43 CFR 412.3(e) Estimated Total Length of Stay (Days): 3 Review of Systems All other systems reviewed negative except as stated in HPI [facility] - History History Provided By: Patient, Family Member - Medical History Medical History: Medical History (Last Reviewed 06/13/18 @ 14:00 by Gabby Lehman) Aortic stenosis CAD (coronary artery disease) COPD (chronic obstructive pulmonary disease) Diabetes mellitus FHx: total knee replacement GERD (gastroesophageal reflux disease) High cholesterol Hypertension Pacemaker Sarcoidosis of lung Thyroid disease - Surgical History Surgical History: Surgical History (Last Reviewed 06/13/18 @ 14:00 by Gabby Lehman) H/O cardiac catheterization H/O hernia repair H/O shoulder replacement H/O total hysterectomy History of appendectomy History of cholecystectomy Hx of cataract surgery - Family History Family History: Family History (Last Updated 06/12/18 @ 22:03 by Marva Arreola MD) Other Family history normal - Tobacco History Second Hand Smoke Exposure: Yes Smoking Status: Never smoker - Alcohol History How Often Do You Have a Drink Containing Alcohol: Never - Substance Use History Substance History: No History of Abuse Medications and Allergies Active Medications: Active Medications Aspirin (Aspirin) 325 mg PO GAS TRANSFER OPERATOR CARLI Stop: 07/08/18 09:39 Chlorhexidine Gluconate (Chlorhexidine 2% Cloth) 3 pack TOPICAL GAS TRANSFER OPERATOR CARLI Stop: 07/08/18 09:31 Chlorhexidine Gluconate (Chlorhexidine 2% Cloth) 3 pack TOPICAL GAS TRANSFER OPERATOR CARLI Stop: 07/08/18 09:39 Lactated Ringer's (Lr 1000 Ml Inj) 1,000 mls @ 30 mls/hr IV.SIG .Q24H CARLI Stop: 07/06/18 09:44 Sodium Chloride (Ns Inj) 500 mls @ 30 mls/hr IV.SIG .Q10H CARLI Stop: 07/08/18 09:59 Cefazolin Sodium 2,000 mg/ (Sodium Chloride) 120 mls @ 240 mls/hr IV.SIG GAS TRANSFER OPERATOR COUNTS INCLUDE 234 BEDS AT THE [facility] Stop: 07/08/18 09:59 Sodium Chloride (Ns Inj) 1,000 mls @ 125 mls/hr IV.CONT .Q8H COUNTS INCLUDE 234 BEDS AT THE [facility] Stop: 07/08/18 09:44 Metoprolol Tartrate (Lopressor) 25 mg PO GAS TRANSFER OPERATOR COUNTS INCLUDE 234 BEDS AT THE [facility] Stop: 07/08/18 09:31 Mupirocin (Bactroban 2% Nasal Oint) 1 applicatio EACH NARE GAS TRANSFER OPERATOR COUNTS INCLUDE 234 BEDS AT THE [facility] Stop: 07/08/18 09:39 Povidone Iodine (Betadine 5% Antisepsis Kit) 1 applicatio EACH NARE GAS TRANSFER OPERATOR COUNTS INCLUDE 234 BEDS AT THE [facility] Stop: 07/08/18 09:31 Povidone Iodine (Betadine 5% Antisepsis Kit) 1 applicatio TOPICAL GAS TRANSFER OPERATOR COUNTS INCLUDE 234 BEDS AT THE [facility] Stop: 07/08/18 09:39 Allergies Allergy/AdvReac Type Severity Reaction Status Date / Time vancomycin Allergy Mild ITCHING, Verified 07/05/18 09:55 RASH cefdinir Allergy Unknown unknown Verified 07/05/18 09:57 citalopram Allergy Unknown unknown Verified 07/05/18 09:55 hyoscyamine Allergy Unknown unknown Verified 07/05/18 09:55 meperidine Allergy Unknown unknown Verified 07/05/18 09:55 Sulfa (Sulfonamide Allergy Unknown Anaphylaxis Verified 07/05/18 09:55 Antibiotics) sulfacetamide [From Sumaxin] Allergy Unknown unknown Verified 07/05/18 09:57 sulfamethoxazole Allergy Unknown Anaphylaxis Verified 07/05/18 09:55 sulfur [From Sumaxin] Allergy Unknown unknown Verified 07/05/18 09:57 trimethoprim Allergy Unknown Anaphylaxis Verified 07/05/18 09:55 levofloxacin AdvReac Unknown Cramping Verified 07/05/18 09:55 of the Muscles morphine AdvReac Unknown Hallucinati Verified 07/05/18 09:55 ons Home Medications Medication Instructions Recorded Confirmed Type albuterol sulfate [Ventolin HFA] 2 puff INHALATION Q4HR 05/07/18 06/12/18 History ascorbic acid (vitamin C) [Vitamin 500 mg PO DAILY 05/07/18 06/12/18 History C] aspirin [Aspirin Low Dose] 81 mg PO DAILY 05/07/18 06/12/18 History biotin 5 mg PO DAILY 05/07/18 06/12/18 History cetirizine [Zyrtec] 10 mg PO DAILY 05/07/18 06/12/18 History cholecalciferol (vitamin D3) 5,000 unit PO DAILY 05/07/18 06/12/18 History cinnamon bark [Cinnamon] 1,000 mg PO DAILY 05/07/18 06/12/18 History coenzyme Q10 100 mg PO DAILY 05/07/18 06/12/18 History cyanocobalamin (vitamin B-12) 1,000 mcg PO DAILY 05/07/18 06/12/18 History dicyclomine 10 mg PO BID 05/07/18 06/12/18 History fluticasone 2 spray INTRANASAL DAILY 05/07/18 06/12/18 History furosemide 10 mg PO DAILY 05/07/18 06/12/18 History levalbuterol HCl 1.25 mg INHALATION Q4-6H PRN 05/07/18 06/12/18 History levothyroxine 50 mcg PO WEEKLY 05/07/18 06/12/18 History levothyroxine See Label Instructions .ROUTE 05/07/18 06/12/18 History .COMPLEX losartan 50 mg PO DAILY 05/07/18 06/12/18 History multivitamin [Multiple Vitamins] 1 tab PO DAILY 05/07/18 06/12/18 History pantoprazole 40 mg PO DAILY 05/07/18 06/12/18 History rosuvastatin 10 mg PO HS 05/07/18 06/12/18 History Saccharomyces boulardii 500 mg PO BID 06/12/18 06/12/18 History alprazolam [Xanax] 0.25 mg PO Q6HR PRN 06/12/18 06/12/18 History prednisone 10 mg PO DAILY PRN 06/12/18 06/12/18 History sennosides-docusate sodium [Senna 1 tab PO DAILY 06/12/18 06/12/18 History Plus] tramadol 50 mg PO DAILY PRN 06/12/18 06/12/18 History Exam - Constitutional no acute distress - Routine HEENT Exam Head: Present: normocephalic Eye: Present: EOMI, PERRL - Routine Neck Exam Absent: JVD, carotid bruit - Routine Respiratory Exam Present: CTA bilaterally - Routine Cardiovascular Exam Present: RRR, murmur - Routine Abdominal Exam Present: soft, normoactive bowel sounds - Routine Extremities Exam Absent: cyanosis, clubbing, edema - Routine Neurological Exam Present: alert, oriented X3, CN II-XII intact. Absent: sensory deficit, motor deficit Results - EKG Interpretation EKG: sinus rhythm (ventricular paced rhythm) Caprini VTE Risk Assessment Caprini VTE Risk Assessment: No/Low Risk (score <= 1) Caprini Risk Assessment Model: Point Value = 1 Point Value = 2 Point Value = 3 Point Value = 5 Age 41-60 Minor surgery BMI > 25 kg/m2 Swollen legs Varicose veins or History of unexplained or recurrent spontaneous Oral contraceptives or hormone replacement Sepsis (< 1 month) Serious lung disease, including pneumonia (< 1 month) Abnormal pulmonary function Acute myocardial infarction Congestive heart failure (< 1 month) History of inflammatory bowel disease Medical patient at bed rest Age 61-74 Arthroscopic surgery Major open surgery (> 45 min) Laparoscopic surgery (> 45 min) Malignancy Confined to bed (> 72 hours) Immobilizing plaster cast Central venous access Age >= 75 History of VTE Family history of VTE Factor V Leiden Prothrombin [id number] Lupus anticoagulant Anticardiolipin antibodies Elevated serum homocysteine Heparin-induced thrombocytopenia Other congenital or acquired thrombophilia Stroke (< 1 month) Elective arthroplasty Hip, pelvis, or leg fracture Acute spinal cord injury (< 1 month) Prophylaxis Regimen: Total Risk Factor Score Risk Level Prophylaxis Regimen 0-1 Low Early ambulation 2 Moderate Order ONE of the following: *Sequential Compression Device (SCD) *Heparin 5000 units SQ BID 3-4 Higher Order ONE of the following medications: *Heparin 5000 units SQ TID *Enoxaparin/Lovenox 40 mg SQ daily (WT < 150 kg, CrCl > 30 mL/min) *Enoxaparin/Lovenox 30 mg SQ daily (WT < 150 kg, CrCl > 10-29 mL/min) *Enoxaparin/Lovenox 30 mg SQ BID (WT < 150 kg, CrCl > 30 mL/min) AND/OR *Sequential Compression Device (SCD) 5 or more Highest Order ONE of the following medications: *Heparin 5000 units SQ TID (Preferred with Epidurals) *Enoxaparin/Lovenox 40 mg SQ daily (WT < 150 kg, CrCl > 30 mL/min) *Enoxaparin/Lovenox 30 mg SQ daily (WT < 150 kg, CrCl > 10-29 mL/min) *Enoxaparin/Lovenox 30 mg SQ BID (WT < 150 kg, CrCl > 30 mL/min) AND *Sequential Compression Device (SCD) Assessment and Plan - Plan Severe aortic valve stenosis Chronic diastolic congestive heart failure Preoperative workup: STS score 7.3% [place] [employer] functional class III symptoms BMI 31 2 out of 4 frailty score Electrocardiogram shows normal sinus rhythm with electronic ventricular pacing His pulmonary function test performed on April 06, 2018 shows moderately restrictive ventilatory defect with FEV1 of 1.21 Transthoracic echocardiogram performed on April 17, 2018 reveals a peak jet velocity of 4.47 m/s, mean gradient 56 mmHg, aortic valve area calculated 0.57 cm, ejection fraction 54%, aortic insufficiency mild, mitral regurgitation mild , tricuspid regurgitation trivial Cardiac catheterization April 26, 2018 reveals severe proximal left anterior descending coronary artery stenosis extending into the mid segment status post drug-eluting stent placement with good result and otherwise only minor luminal irregularities Computed tomographic analysis on May 23, 2018 reveals a short annulus diameter 18.1 mm, long anus diameter 22.2 mm with a calculated parameter 63.2 mm, sinus of Valsalva diameter 32.9 mm, sinotubular junction diameter 32.5 mm, left coronary height 7.8 mm, right coronary heart 14.4 mm, calculated implant angle left anterior oblique 30 degrees and 10 degrees caudal, minimal luminal diameter in the iliac system on the right is 6.9 mm and on the left 7.0 mm This 83-year-old female with history of COPD, sarcoidosis on home oxygen, hypertension, hypothyroidism, permanent pacemaker, coronary disease with recent percutaneous coronary intervention, diabetes, mitral stenosis, chronic kidney disease stage II with severe symptomatic aortic stenosis and [place] [employer] functional class III symptoms. Patient was seen by Kyolya Botello and Dr. Mcgarry from cardiothoracic surgery and felt to be high surgical risk for traditional surgical aortic valve replacement given her STS, frailty, and comorbidities. Risk benefits alternatives were discussed with the patient regarding consideration for transcatheter aortic valve replacement. Patient is agreeable to proceed. Based on the information available, we will plan for a Medtronic evolute pro 26 mm bioprosthetic aortic valve via a right common femoral arterial approach.
[2018-07-05] MEDS ORDERED: Protamine Sulfate Inj 50 MG/5 ML Vial ONE (10:22)
[2018-07-05] MEDS ORDERED: Heparin 10,000 UNITS/10 ML Vial (for IV use) ONE (10:22)
[2018-07-05] MEDS ORDERED: Glycopyrrolate Inj 1 MG/5 ML Syringe IV.PUSH ONE (11:51)
[2018-07-05] MEDS ORDERED: Phenylephrine/NS 1000 MCG/10ML Syringe IV.PUSH ONE (11:51)
[2018-07-05] MEDS ORDERED: Neostigmine Inj 5 MG/5 ML Syringe IV.PUSH ONE (11:51)
[2018-07-05] MEDS ORDERED: Lidocaine PF 1% Inj 5 ML Syringe INFILTRATN ONE (11:51)
[2018-07-05] MEDS ORDERED: Iohexol 300 MG/ML 50 ML Vial (for Rad Diag) IVCONTRAST ONE ×4 (12:28→14:00)
--- NOTE | 2018-07-05 12:33 | P.OP ---
Date of procedure: 07/05/18 Anesthesia: GETA Surgeon: Kyaw Botlelo MD Operation and Findings: PREOPERATIVE DIAGNOSIS: 1. Severe Symptomatic Aortic stenosis. 2. CHF 3. Mild aortic Insufficiency POSTOPERATIVE DIAGNOSIS: Same OPERATION PERFORMED: 1. Transcatheter Aortic Valve Replacement (TAVR) with a Medtronic 26 mm Evolut Pro Tissue Valve. 2. Balloon Aortic Valvuloplasty 3. Aortogram. 4. Percutaneous Left femoral Vein Access and Bilateral Common Femoral Artery Access 5. Perclose (x2) closure of Right common Femoral artery. 6. Vascade closure of Left Common femoral Artery and Vein. 7. Fluoroscopy SURGEON: Kyaw Botello MD CO-SURGEON: James Durbin MD STEM SHAPER SURGEON: Elisabeth Cardoza MD DIESEL PILE DRIVER OPERATOR: DEACON Quezada MD ANESTHESIA: GETA PROCEDURE: The risks, benefits, complications, treatment options, and expected outcomes were discussed with the patient. The possibilities of reaction to medication, pulmonary aspiration, perforation of viscus, bleeding, recurrent infection, the need for additional procedures, failure to diagnose a condition, and creating a complication requiring transfusion or operation were discussed with the patient. The patient concurred with the proposed plan, giving informed consent. The site of surgery properly noted/marked. The patient was taken to the hybrid operating room and the procedure verified as Transcatheter Aortic Valve Replacement. A Time Out was held and the above information confirmed. Standard monitoring lines and Oliveira catheter were placed. General anesthesia was induced. The patient was prepped and draped in a sterile fashion. Initially, the left femoral arterial and venous access was acquired using a Seldinger percutaneous technique. The details of this procedure were dictated under separate note by cardiology. Once a pigtail was positioned in the aortic annulus and a temporary transvenous pacemaker wire was placed in the right ventricular apex and tested, the right femoral artery was accessed using a needle followed by a guidewire under fluoroscopic guidance. The patient was heparinized and two Perclose devices deployed at a 45 degree angle for later closure. Serial dilators were used to dilate the left femoral artery to 16 Haitian caliber. The Medtronic sheath was then inserted into the external iliac artery up to the distal abdominal aorta. Arch aortography was performed to define the implant view. A 26 mm Medtronic Evolut Pro transcatheter aortic valve was then positioned in the annulus and deployed with the patient being rapidly paced. Following deployment, the valve apparatus was withdrawn and arch aortography and SARA were performed to assess the valve. The valve had trace perivalvular leak. Gradients were then measured and the sheath was removed with securing the Perclose sutures for hemostasis. Protamine was administered. The left arterial and Venous access sites were closed using the Vascade device. Sterile dressings were placed. At the end of the operation, all sponge, instruments, and needle counts were correct. The patient was transferred to the CVICU in stable condition. Findings: Trace PVL Implants: 26 Evolut Pro Medtronic Valve Complications: None Disposition: CVICU in stable condition
[2018-07-05] MEDS ORDERED: fentaNYL Citrate Inj 100 MCG/2 ML Ampul ONE (13:01)
--- NOTE | 2018-07-05 13:07 | ECG ---
Date Performed: 07/05/2018 Time Performed: 09:54:06 PTAGE: 83 years EKG: --- Warning: Data quality may affect interpretation --- Sinus rhythm with borderline 1st degree A-V block. Lead(s) unsuitable for analysis: V3 Left axis deviation Left b undle branch block Lateral infarct - age undetermined Possible inferior infarct - age undetermined Ab normal ECG PREVIOUS TRACING : 06/12/2018 14.45 DOCTOR: James Durbin Interpretating Date/Time 07/05/2018 13:05:11
[2018-07-05] MEDS ORDERED: Benzocaine/Menthol 15 MG/3.6 MG SF Lozenge BUCCAL PRN (13:14)
[2018-07-05] MEDS ORDERED: Acetaminophen 325 MG Tablet PO PRN (13:14)
[2018-07-05] MEDS ORDERED: hydrALAZINE HCl Inj 20 MG/ML Vial IV.PUSH PRN (13:14)
[2018-07-05] MEDS ORDERED: Atropine Inj 1 MG/ML Vial IV.PUSH PRN (13:14)
[2018-07-05] MEDS ORDERED: Sod Chloride 0.9% Inj 1,000 ML IV.CONT SCH (13:15)
--- NOTE | 2018-07-05 13:23 | P.PCN ---
Date of procedure: 07/05/18 Pre-op diagnosis: Severe aortic stenosis Post-op diagnosis: other (Status post successful transcatheter aortic valve replacement) Procedure: Procedure: Transesophageal Echocardiography Diagnosis: Severe aortic stenosis Indications: Perioperative planning for transcatheter aortic valve replacement Consent: Obtained Anesthesia: General anesthesia Description of the Procedure: The patient was sedated and mechanically ventilated. The echo probe was inserted easily and without resistance. At the conclusion of the procedure, the echo probe was removed. Please see detailed echocardiogram report for formal findings. Preliminary Findings (not confirmed): Pre-procedure: 1) grossly normal biventricular function 2) left ventricular hypertrophy 3) severe aortic stenosis 4) mild mitral regurgitation 5) mild mitral stenosis 6) mild mitral regurgitation 7) trace tricuspid regurgitation 8) no evidence of intra-atrial shunting by color flow Doppler 9) no pericardial effusion Post-procedure: 1) s/p successful placement of transcatheter aortic valve 2) no evidence of bioprosthetic valve stenosis 3) trace perivalvular leak 4) no pericardial effusion The patient tolerated the procedure well with no hemodynamic instability. There were no immediate complications noted. There was minimal EBL. I personally performed the procedure.
[2018-07-05] MEDS ORDERED: Magnesium Sulfate Inj 4 GM in Sodium Chlor 0.9% Inj 92 ML IV.SIG PRN (13:27)
[2018-07-05] MEDS ORDERED: Potassium Chloride 25 MEQ Effervescent Tablet PO PRN (13:27)
[2018-07-05] MEDS ORDERED: Potassium Chlor 20 mEq Premix 20 MEQ/100 ML PIGGYBACK IV.SIG PRN ×2 (13:27)
[2018-07-05] MEDS ORDERED: Potassium Phosphate 500 MG Soluble Tablet PO PRN ×2 (13:27)
[2018-07-05] MEDS ORDERED: Sodium Phosphate Inj 30 MMOL in Sodium Chlor 0.9% Inj 250 ML IV.SIG PRN (13:27)
[2018-07-05] MEDS ORDERED: Magnesium Oxide 400 MG Tablet PO PRN (13:27)
[2018-07-05] MEDS ORDERED: Magnesium Sulfate Inj 2 GM in Sodium Chlor 0.9% Inj 96 ML IV.SIG PRN (13:27)
[2018-07-05] MEDS ORDERED: Potassium Phosphate Inj 30 MMOL in Sodium Chlor 0.9% Inj 250 ML IV.SIG PRN (13:27)
[2018-07-05] MEDS ORDERED: Potassium Chlor 40 mEq Premix 40 MEQ/100 ML PIGGYBACK IV.SIG PRN ×2 (13:27)
[2018-07-05] MEDS ORDERED: predniSONE 10 MG Tablet PO PRN (13:28)
[2018-07-05] MEDS ORDERED: ALPRAZolam 0.25 MG Tablet PO PRN (13:28)
--- NOTE | 2018-07-05 13:35 | P.CONCC ---
History of Present Illness Service: Critical Care Medicine Consult date: 07/05/18 Requesting Physician: James Durbin Reason for Consult: perioperative management of medical comorbidities Primary Care Provider: DO Beasley Family Provider: JOSEMANUEL Tello Chief Complaint: Severe aortic valve stenosis History of Present Illness: This is an 83-year-old female with a history of mild mitral stenosis and severe aortic stenosis who presents for transcatheter aortic valve replacement. She underwent uncomplicated placement via common iliac access. She arrives to the CVICU extubated in stable condition. She is still arousing from anesthesia and a complete review of systems is unobtainable. Limited review systems is negative for chest pain, shortness of breath, nausea, vomiting, headache, sore throat. PMF - History History Provided By: Patient, Family Member - Medical History Medical History: Medical History (Last Reviewed 07/05/18 @ 13:25 by Jose Ramon Ndiaye MD) CKD (chronic kidney disease) stage 2, GFR 60-89 ml/min HLD (hyperlipidemia) Pneumonia Aortic stenosis CAD (coronary artery disease) COPD (chronic obstructive pulmonary disease) Diabetes mellitus FHx: total knee replacement GERD (gastroesophageal reflux disease) High cholesterol Hypertension Pacemaker Sarcoidosis of lung Thyroid disease - Surgical History Surgical History: Surgical History (Last Reviewed 07/05/18 @ 13:25 by Jose Ramon Ndiaye MD) H/O cardiac catheterization H/O hernia repair H/O shoulder replacement H/O total hysterectomy History of appendectomy History of cholecystectomy Hx of cataract surgery - Family History Family History: Family History (Last Reviewed 07/05/18 @ 13:24 by Jose Ramon Ndiaye MD) Other Family history normal - Tobacco History Second Hand Smoke Exposure: Yes Smoking Status: Never smoker - Alcohol History How Often Do You Have a Drink Containing Alcohol: Never - Substance Use History Substance History: No History of Abuse Medications and Allergies Active Medications: Active Medications Acetaminophen (Tylenol) 650 mg PO Q4H PRN PRN Reason: PAIN SCALE 1 TO 2 Stop: 07/06/18 13:13 Aspirin (Aspirin) 325 mg PO [facility] Stop: 07/08/18 09:39 Aspirin (Aspirin Chew) 81 mg PO DAILY [facility] Atropine Sulfate (Atropine Inj) 0.5 mg IV.PUSH UNSCH PRN PRN Reason: VAGAL REPONSE Stop: 07/06/18 13:13 Benzocaine/Menthol (Cepacol Max Strength) 1 lozenge BUCCAL Q3H PRN PRN Reason: SORE THROAT Stop: 07/06/18 13:13 Chlorhexidine Gluconate (Chlorhexidine 2% Cloth) 3 pack [facility] Stop: 07/08/18 09:31 Chlorhexidine Gluconate (Chlorhexidine 2% Cloth) 3 pack [facility] Stop: 07/08/18 09:39 Clonidine HCl (Catapres) 0.2 mg PO Q6H PRN PRN Reason: SBP > 160 mmHg Clopidogrel Bisulfate (Plavix) 75 mg PO DAILY [facility] Ferrous Sulfate (Ferosul) 325 mg PO DAILY [facility] Furosemide (Lasix) 20 mg PO DAILY [facility] Hydralazine HCl (Apresoline Inj) 10 mg IV.PUSH Q30M PRN PRN Reason: SBP > 160 mmHg Lactated Ringer's (Lr 1000 Ml Inj) 1,000 mls @ 30 mls/hr IV.SIG .Q24H [facility] Stop: 07/06/18 09:44 Sodium Chloride (Ns Inj) 500 mls @ 30 mls/hr IV.SIG .Q10H [facility] Stop: 07/08/18 09:59 Cefazolin Sodium 2,000 mg/ (Sodium Chloride) 120 mls @ 240 mls/hr IV.SIG [facility] Stop: 07/08/18 09:59 Last Admin: 07/05/18 11:08 Dose: 240 mls/hr Sodium Chloride (Ns Inj) 1,000 mls @ 125 mls/hr IV.CONT .Q8H [facility] Stop: 07/08/18 09:44 Sodium Chloride (Ns Inj) 1,000 mls @ 125 mls/hr IV.CONT .Q8H [facility] Stop: 07/05/18 17:14 Iohexol (Omnipaque 300 Inj (Rad Diag)) 50 ml IVCONTRAST ONCE ONE Stop: 07/05/18 12:29 Last Admin: 07/05/18 12:29 Dose: 50 ml Iohexol (Omnipaque 300 Inj (Rad Diag)) 50 ml IVCONTRAST ONCE ONE Stop: 07/05/18 12:31 Last Admin: 07/05/18 12:31 Dose: 50 ml Iohexol (Omnipaque 300 Inj (Rad Diag)) 50 ml IVCONTRAST ONCE ONE Stop: 07/05/18 12:32 Last Admin: 07/05/18 12:32 Dose: 20 ml Metoprolol Tartrate (Lopressor) 25 mg PO [facility] Stop: 07/08/18 09:31 Miscellaneous Information (Misc Information) 0 each OTHER STAT STA Stop: 07/05/18 13:15 Mupirocin (Bactroban 2% Nasal Oint) 1 applicatio EACH NARE [facility] Stop: 07/08/18 09:39 Povidone Iodine (Betadine 5% Antisepsis Kit) 1 applicatio EACH [facility] Stop: 07/08/18 09:31 Povidone Iodine (Betadine 5% Antisepsis Kit) 1 applicatio [facility] Stop: 07/08/18 09:39 Allergies Allergy/AdvReac Type Severity Reaction Status Date / Time vancomycin Allergy Mild ITCHING, Verified 07/05/18 09:55 RASH cefdinir Allergy Unknown unknown Verified 07/05/18 09:57 citalopram Allergy Unknown unknown Verified 07/05/18 09:55 hyoscyamine Allergy Unknown unknown Verified 07/05/18 09:55 meperidine Allergy Unknown unknown Verified 07/05/18 09:55 Sulfa (Sulfonamide Allergy Unknown Anaphylaxis Verified 07/05/18 09:55 Antibiotics) sulfacetamide [From Sumaxin] Allergy Unknown unknown Verified 07/05/18 09:57 sulfamethoxazole Allergy Unknown Anaphylaxis Verified 07/05/18 09:55 sulfur [From Sumaxin] Allergy Unknown unknown Verified 07/05/18 09:57 trimethoprim Allergy Unknown Anaphylaxis Verified 07/05/18 09:55 levofloxacin AdvReac Unknown Cramping Verified 07/05/18 09:55 of the Muscles morphine AdvReac Unknown Hallucinati Verified 07/05/18 09:55 ons Home Medications Medication Instructions Recorded Confirmed Type albuterol sulfate [Ventolin HFA] 2 puff INHALATION Q4HR 05/07/18 07/05/18 History ascorbic acid (vitamin C) [Vitamin 500 mg PO DAILY 05/07/18 07/05/18 History C] aspirin [Aspirin Low Dose] 81 mg PO DAILY 05/07/18 07/05/18 History biotin 5 mg PO DAILY 05/07/18 07/05/18 History cetirizine [Zyrtec] 10 mg PO DAILY 05/07/18 07/05/18 History cholecalciferol (vitamin D3) 5,000 unit PO DAILY 05/07/18 07/05/18 History cinnamon bark [Cinnamon] 1,000 mg PO DAILY 05/07/18 07/05/18 History coenzyme Q10 100 mg PO DAILY 05/07/18 07/05/18 History cyanocobalamin (vitamin B-12) 1,000 mcg PO DAILY 05/07/18 07/05/18 History dicyclomine 10 mg PO BID 05/07/18 07/05/18 History fluticasone 2 spray INTRANASAL DAILY 05/07/18 07/05/18 History furosemide 10 mg PO DAILY 05/07/18 07/05/18 History levalbuterol HCl 1.25 mg INHALATION Q4-6H PRN 05/07/18 07/05/18 History levothyroxine 50 mcg PO WEEKLY 05/07/18 07/05/18 History levothyroxine See Label Instructions .ROUTE 05/07/18 07/05/18 History .COMPLEX losartan 50 mg PO DAILY 05/07/18 07/05/18 History multivitamin [Multiple Vitamins] 1 tab PO DAILY 05/07/18 07/05/18 History pantoprazole 40 mg PO DAILY 05/07/18 07/05/18 History rosuvastatin 10 mg PO HS 05/07/18 07/05/18 History Saccharomyces boulardii 500 mg PO BID 06/12/18 07/05/18 History alprazolam [Xanax] 0.25 mg PO Q6HR PRN 06/12/18 07/05/18 History prednisone 10 mg PO DAILY PRN 06/12/18 07/05/18 History sennosides-docusate sodium [Senna 1 tab PO DAILY 06/12/18 07/05/18 History Plus] tramadol 50 mg PO DAILY PRN 06/12/18 07/05/18 History Physical Exam Vital signs: Vital Signs 07/05/18 09:58 Temperature 37.4 C Pulse Rate 77 Respiratory Rate 18 Blood Pressure 177/96 H Pulse Oximetry 98 Intake & Output 07/04/18 07/05/18 07/05/18 18:59 06:59 18:59 Intake Total 1200 / 1200 Output Total 600 / 600 Balance 600 / 600 Weight 69.3 kg Intake: Anesthesia Amount 1200 / 1200 Output: Estimated Blood Loss 100 / 100 Urine Amount (Catheter) 500 / 500 Indwelling Temp Sensing 500 / 500 Catheter Other: Weight On Admission 69.3 kg Narrative: GENERAL: Frail elderly female, lying in bed, arousing from anesthesia HEENT: Normocephalic. Atraumatic. Pupils equal, round, reactive, conjugate. Mucous membranes are moist NECK: Trachea is midline. There is no JVD. right IJ introducer sheath in place , site is clean and dry, dressing intact. CHEST: unlabored. equal chest rise. nc o2. CARDIOVASCULAR: normal rate, regular rhythm. Intermittently paced rhythm from implanted pacemaker. ABDOMEN: Soft, nontender, nondistended. No guarding. MUSCULOSKELETAL: Pulses 2+. No peripheral edema. bilateral groin sites are clean and dry, no evidence of hematoma, dressing intact. distal LE pulses are Dopplerable. NEUROLOGICAL: RASS -2. Arousing from anesthesia. follows commands. moves all extremities. no focal deficits. - Urinary Catheter Management Indwelling Temp Sensing Catheter Cath placed during this visit: yes Reason for continuing: Hourly intake/output Insertion date: 07/05/18 Insertion time: 11:00 Assessment and Plan - Assessment and Plan Plan: Assessment: 83-year-old female POD 0 s/p transcatheter aortic valve replacement via groin access. Admit ICU for close neurovascular monitoring as well as close urine output monitoring. s/p TAVR 07/05 via groin access - anticoagulation per Dr. Durbin - close uop monitoring - mivf - frequent neurovascular checks CAD (coronary artery disease) - restart home statin - ASA COPD (chronic obstructive pulmonary disease) - scheduled and prn nebs - aggressive pulmonary toilet - OOB after flat time Diabetes mellitus - SSI GERD (gastroesophageal reflux disease) - advance diet after flat time - home PPI High cholesterol - restart home statin Hypertension - goal sbp < 180 - restart home antihypertensives as needed Pacemaker - currently intermittently paced - keep on telemetry overnight. Sarcoidosis of lung - continue home prednisone Thyroid disease - continue home synthroid SCDs Critical care medicine will continue to follow while patient is in the CVICU.
--- NOTE | 2018-07-05 14:28 | MA ---
cc: James Durbin MD DATE: 07/05/2018 PROCEDURE: Transcatheter aortic valve replacement. PRINCIPAL TECHNICAL SPECIALIST: James Durbin MD, [facility] SECONDARY BRUSHING OPERATOR: Dr. Elisabeth Cardoza. PRIMARY SURGEON: Dr. Kyaw Botello. PROCEDURES PERFORMED: 1. Fluoroscopy with interpretation. 2. Left heart catheterization. 3. Ascending aortography. 4. Temporary transvenous pacemaker placement. 5. Transesophageal echocardiogram. 6. Transcatheter aortic valve replacement. 7. Ascending aortography. METHOD: Risks, benefits and alternatives discussed with the patient. The patient understood and consented to the procedure. The patient brought the catheterization lab and placed on the operating table. Bilateral groins were prepped and draped. Left groin was anesthetized with 2% lidocaine; 5-Barbadian 11 cm sheaths were placed in both the left common femoral artery and vein. Right femoral artery was accessed under fluoroscopic guidance and a micropuncture sheath placed. Angiography confirmed good placement. An 8-Barbadian sheath was placed without difficulty. Two Perclose devices were deployed in a pre-close manner. A 16-Barbadian sheath was then placed in the right common femoral artery. ASCENDING AORTOGRAPHY: Ascending aortography was performed in left anterior oblique caudal view. The cusps were well visualized and put into a parallel. The ascending aorta was not significantly dilated. TRANSVENOUS TEMPORARY PACEMAKER PLACEMENT: A sheath was placed in the right internal jugular vein and a 5-Barbadian balloon tipped temporary transvenous pacemaker was then advanced to the right ventricular apex under fluoroscopic guidance and appropriate capture was confirmed. Pacing was utilized throughout the procedure. LEFT HEART CATHETERIZATION: A 5-Barbadian AL-1 catheter was advanced to the ascending aorta. A 0.035-inch straight tipped Amplatz wire was then navigated across the aortic valve with some difficulty. The Amplatz catheter was advanced into the left ventricle. A J-wire was advanced to the apex; AL-1 catheter removed and a 5-Barbadian pigtail advanced to the left ventricular apex followed by a Medtronic Confida wire up to the left ventricular apex and the pigtail catheter removed. TRANSCATHETER AORTIC VALVE REPLACEMENT: A Medtronic 26 Evolut bioprosthetic aortic valve was then prepped. The 16-Barbadian sheath was walked out, leaving the wire in place. The transcatheter aortic valve with the sheath in place was advanced over the wire to the descending aorta. The device was then carefully navigated up and over the arch and across the aortic valve. Appropriate positioning was confirmed by ascending angiography. The device was then carefully deployed under rapid pacing. Repeat angiography confirmed good placement and the device was then fully deployed. Transesophageal echocardiogram revealed no significant gradient or aortic insufficiency. Heparin was administered throughout the entire procedure. Right common femoral artery was then closed with 2 Percloses and an 8-Barbadian Angio-Seal with good hemostasis and the left common femoral artery and vein were closed with a 5-Barbadian VASCADE devices with good hemostasis. Intraoperative post deployment transesophageal echocardiogram: Aortic valve area 1.5 cm Mean gradient 4 mmHg peak velocity 1.43 m/s Trace paravalvular leak/aortic insufficiency CONCLUSIONS: Successful so successful transcatheter aortic valve replacement with a 26 mm Ortega bioprosthetic aortic valve. PLAN: The patient will be continued on antiplatelet therapy. We will monitor closely for any postprocedural complications such as bleeding, stroke, or need for respiratory treatments. We will obtain a limited transthoracic echocardiogram. The patient has a pacemaker already in place. MD MYNOR Monge/glenda , 01:30 PM , 01:41 PM [email or web address]
[2018-07-05 15:04] LABS: Calcium 8.2 mg/dL (8.5-10.1); Carbon Dioxide 27.3 meq/L (21.0-32.0); Potassium 4.2 meq/L (3.5-5.1)
[2018-07-05 15:40] LABS: Hematocrit 32.6 % (35.0-46.0); Mean Corpuscular HGB Conc 33.6 % (32.0-36.0); Mean Corpuscular Hemoglobin 31.6 pg (27.0-34.0); Mean Platelet Volume 8.5 fL (7.0-11.0); Platelet Count 261 th/mm3 (150-450); Red Blood Count 3.47 mil/mm3 (4.00-5.30); Red Cell Distribution Width 14.9 % (11.6-17.2); White Blood Count 15.9 th/mm3 (4.0-11.0)
--- NOTE | 2018-07-05 16:11 | ECHRPT ---
Indication: CONCLUSIONS Severe aortic valve stenosis Status post transcatheter aortic valve replacement Trace valvular leak/aortic insufficiency. BP: / HR: Rhythm: Technical Quality: Medications Complications Proc. Components FINDINGS LEFT VENTRICLE Normal left ventricular size. Mild concentric left ventricular hypertrophy. The left ventricular systolic function is normal with an estimated ejection fraction in the range of 60-65%. RIGHT VENTRICLE Normal right ventricular size and systolic function. LEFT ATRIUM The left atrial size is normal. RIGHT ATRIUM The right atrial size is normal. ATRIAL SEPTUM Normal atrial septal thickness without atrial level shunting by limited color doppler interrogation. AORTA Severe aortic valve stenosis Status post transcatheter aortic valve replacement Trace valvular leak/aortic insufficiency MITRAL VALVE Structurally normal mitral valve. No mitral valve stenosis or regurgitation. AORTIC VALVE Trileaflet aortic valve. No aortic valve stenosis or regurgitation. TRICUSPID VALVE Structurally normal tricuspid valve. No tricuspid valve stenosis or regurgitation. VESSELS The inferior vena cava is normal in size. PULMONARY VALVE The pulmonary valve is not well visualized. PERICADIUM No pericardial effusion. James Durbin MD, FACC (Electronically Signed) Final Date:05 July 2018 16:10
[2018-07-06 05:24] LABS: Hematocrit 28.9 % (35.0-46.0); Hemoglobin 9.7 gm/dL (11.6-15.3); Mean Corpuscular HGB Conc 33.5 % (32.0-36.0); Mean Corpuscular Hemoglobin 31.1 pg (27.0-34.0); Mean Corpuscular Volume 92.9 fL (80.0-100.0); Mean Platelet Volume 8.1 fL (7.0-11.0); Platelet Count 236 th/mm3 (150-450); Red Blood Count 3.11 mil/mm3 (4.00-5.30); Red Cell Distribution Width 14.8 % (11.6-17.2); White Blood Count 14.2 th/mm3 (4.0-11.0)
[2018-07-06 05:53] LABS: Calcium 8.3 mg/dL (8.5-10.1); Carbon Dioxide 27.2 meq/L (21.0-32.0); Potassium 4.1 meq/L (3.5-5.1)
--- NOTE | 2018-07-06 07:48 | P.PNCV ---
- Note Subjective/Hospital Course: Clinically and hemodynamic is stable Continues to have persistent dry cough which is nonproductive Groin soft and supple Discharge as planned Objective: Vital Signs - 24 hr 07/05/18 09:58 07/05/18 14:00 07/05/18 15:00 Temperature 99.3 F 98.2 F Pulse Rate 77 79 83 Respiratory Rate 18 14 14 Blood Pressure 177/96 H 154/56 H 125/52 L Pulse Oximetry 98 07/05/18 16:00 07/05/18 20:00 07/06/18 00:00 Temperature 98.5 F 98.4 F Pulse Rate 87 76 75 Respiratory Rate 14 20 18 Blood Pressure 101/44 L 154/65 H 136/48 L Pulse Oximetry 95 96 98 07/06/18 00:07 07/06/18 03:34 07/06/18 04:00 Temperature Pulse Rate 78 72 70 Respiratory Rate 16 14 20 Blood Pressure 107/38 L Pulse Oximetry 97 07/06/18 07:00 Temperature 98.4 F Pulse Rate 65 Respiratory Rate 16 Blood Pressure 120/53 L Pulse Oximetry 93 L Labs: Laboratory Results - last 12 hr 07/06/18 07/06/18 07/06/18 00:17 05:02 05:02 WBC 14.2 H RBC 3.11 L Hgb 9.7 L Hct 28.9 L MCV 92.9 MCH 31.1 MCHC 33.5 RDW 14.8 Plt Count 236 MPV 8.1 Sodium 144 Potassium 4.1 Chloride 108 H Carbon Dioxide 27.2 Anion Gap 9 BUN 21 H Creatinine 0.92 Estimated GFR 58 L POC Glucose 155 H Random Glucose 99 Calcium 8.3 L Result Diagrams: 07/06/18 05:02 07/06/18 05:02
[2018-07-06] MEDS: Sod Chloride 0.9% Inj 1,000 ML IV.CONT SCH ×2 (08:01→09:53)
--- NOTE | 2018-07-06 08:38 | P.DS ---
<Jason Rene - Last Filed: 07/06/18 08:35> Date of admission: 07/05/18 09:09 Primary care physician: DO Beasley Brief History from admission: This 83-year-old female with history of COPD, sarcoidosis on home oxygen, hypertension, hypothyroidism, permanent pacemaker, coronary disease with recent percutaneous coronary intervention, diabetes, mitral stenosis, chronic kidney disease stage II with severe symptomatic aortic stenosis and [place] [employer] functional class III symptoms. Patient was seen by both Dr. Botello and Dr. Mcgarry from cardiothoracic surgery and felt to be high surgical risk for traditional surgical aortic valve replacement given her STS, frailty, and comorbidities. Risk benefits alternatives were discussed with the patient regarding consideration for transcatheter aortic valve replacement. Patient is agreeable to proceed. Based on the information available, we will plan for a [employer] evolute pro 26 mm bioprosthetic aortic valve via a right common femoral arterial approach. Patient update on day of discharge: Patient's only complaint is chronic cough which has been present for several months, no shortness of breath. For limited echo today. DS: Diagnosis - Discharge Diagnosis (1) Aortic stenosis, severe Status: Chronic DS: Medications - Discharge Medications Prescriptions: ferrous sulfate [FeroSul] 325 mg PO DAILY 30 Days #30 tab DS: Summary Hospital Course: The patient underwent uncomplicated TAVR procedure 07/05 and for severe aortic stenosis. Postoperative course was uncomplicated as well and will plan on discharge today. - Time Spent with Patient Total time spent providing and/or coordinating discharge services: - Quality: VTE Deep Vein Thrombosis/Pulmonary Embolism Present on Admission: No Exam Vital signs: Vital Signs 07/05/18 09:58 07/05/18 14:00 07/05/18 15:00 Temperature 99.3 F 98.2 F Pulse Rate 77 79 83 Respiratory Rate 18 14 14 Blood Pressure 177/96 H 154/56 H 125/52 L Pulse Oximetry 98 07/05/18 16:00 07/05/18 20:00 07/06/18 00:00 Temperature 98.5 F 98.4 F Pulse Rate 87 76 75 Respiratory Rate 14 20 18 Blood Pressure 101/44 L 154/65 H 136/48 L Pulse Oximetry 95 96 98 07/06/18 00:07 07/06/18 03:34 07/06/18 04:00 Temperature Pulse Rate 78 72 70 Respiratory Rate 16 14 20 Blood Pressure 107/38 L Pulse Oximetry 97 07/06/18 07:00 07/06/18 08:00 07/06/18 08:34 Temperature 98.4 F Pulse Rate 65 67 Respiratory Rate 16 20 Blood Pressure 120/53 L Pulse Oximetry 93 L 93 L Intake & Output 07/05/18 07/06/18 07/06/18 18:59 06:59 18:59 Intake Total 1200 / 1200 240 / 240 1120 / 1120 Output Total 1050 / 1050 300 / 300 Balance 150 / 150 -60 / -60 1120 / 1120 Weight 152 lb 12.485 oz 160 lb 14.999 oz Intake: IV 1120 / 1120 Ancef Inj 2,000 MG In NS Inj 120 / 120 100 ML @ 240 mls/hr IV.SIG WOOD ROOM HAND CARLI Rx#:[id number] Oral 240 / 240 Anesthesia Amount 1200 / 1200 Output: Urine 300 / 300 Estimated Blood Loss 100 / 100 Urine Amount (Catheter) 950 / 950 Indwelling Temp Sensing 950 / 950 Catheter Other: # Bowel Movements 0 Weight On Admission 152 lb 12.485 oz Narrative: GENERAL: Well-developed well-nourished. In no acute distress. NECK: No carotid bruits. No JVD. CARDIOVASCULAR: Regular rate and rhythm. No murmur appreciated. RESPIRATORY: No accessory muscle use. Clear to auscultation. Breath sounds equal bilaterally. MUSCULOSKELETAL: No clubbing or cyanosis. No edema. NEUROLOGICAL: Awake and alert. Normal speech. SKIN: Bilateral groins with no ecchymosis, mildly tender, intact pulses. Results Procedures completed during hospitalization: TAVR 07/05/18 Labs on day of discharge: Labs from last 24 hours 07/06/18 07/06/18 07/06/18 05:02 05:02 00:17 WBC 14.2 H RBC 3.11 L Hgb 9.7 L Hct 28.9 L MCV 92.9 MCH 31.1 MCHC 33.5 RDW 14.8 Plt Count 236 MPV 8.1 Sodium 144 Potassium 4.1 Chloride 108 H Carbon Dioxide 27.2 Anion Gap 9 BUN 21 H Creatinine 0.92 Estimated GFR 58 L POC Glucose 155 H Random Glucose 99 Calcium 8.3 L MTS Gel Crossmatch 07/05/18 07/05/18 07/05/18 18:31 17:37 14:45 WBC 15.9 H RBC 3.47 L Hgb 11.0 L Hct 32.6 L MCV 94.0 MCH 31.6 MCHC 33.6 RDW 14.9 Plt Count 261 MPV 8.5 Sodium Potassium Chloride Carbon Dioxide Anion Gap BUN Creatinine Estimated GFR POC Glucose 208 H 258 H Random Glucose Calcium MTS Gel Crossmatch 07/05/18 07/05/18 14:28 09:36 WBC RBC Hgb Hct MCV MCH MCHC RDW Plt Count MPV Sodium 145 Potassium 4.2 Chloride 110 H Carbon Dioxide 27.3 Anion Gap 8 BUN 21 H Creatinine 0.95 Estimated GFR 56 L POC Glucose Random Glucose 121 H Calcium 8.2 L MTS Gel Crossmatch See Detail <James Durbin - Last Filed: 07/06/18 09:46> Date of admission: 07/05/18 09:09 Primary care physician: DO Beasley Patient update on day of discharge: chronic cough likey viral bronchitis Severe aortic valve stenosis status post transcatheter aortic valve replacement Acute on chronic diastolic congestive heart failure, well compensated DC planning for today DS: Summary - Time Spent with Patient Total time spent providing and/or coordinating discharge services: Greater than 30 minutes Exam Vital signs: Vital Signs 07/05/18 09:58 07/05/18 14:00 07/05/18 15:00 Temperature 99.3 F 98.2 F Pulse Rate 77 79 83 Respiratory Rate 18 14 14 Blood Pressure 177/96 H 154/56 H 125/52 L Pulse Oximetry 98 07/05/18 16:00 07/05/18 20:00 07/06/18 00:00 Temperature 98.5 F 98.4 F Pulse Rate 87 76 75 Respiratory Rate 14 20 18 Blood Pressure 101/44 L 154/65 H 136/48 L Pulse Oximetry 95 96 98 07/06/18 00:07 07/06/18 03:34 07/06/18 04:00 Temperature Pulse Rate 78 72 70 Respiratory Rate 16 14 20 Blood Pressure 107/38 L Pulse Oximetry 97 07/06/18 07:00 07/06/18 08:00 07/06/18 08:34 Temperature 98.4 F Pulse Rate 65 67 Respiratory Rate 16 20 Blood Pressure 120/53 L Pulse Oximetry 93 L 93 L Intake & Output 07/05/18 07/06/18 07/06/18 18:59 06:59 18:59 Intake Total 1200 / 1200 240 / 240 1120 / 1120 Output Total 1050 / 1050 300 / 300 Balance 150 / 150 -60 / -60 1120 / 1120 Weight 69.3 kg 73 kg Intake: IV 1120 / 1120 Ancef Inj 2,000 MG In NS Inj 120 / 120 100 ML @ 240 mls/hr IV.SIG WOOD ROOM HAND CARLI Rx#:[id number] Oral 240 / 240 Anesthesia Amount 1200 / 1200 Output: Urine 300 / 300 Estimated Blood Loss 100 / 100 Urine Amount (Catheter) 950 / 950 Indwelling Temp Sensing 950 / 950 Catheter Other: # Bowel Movements 0 Weight On Admission 69.3 kg Results Labs on day of discharge: Labs from last 24 hours 07/06/18 07/06/18 07/06/18 05:02 05:02 00:17 WBC 14.2 H RBC 3.11 L Hgb 9.7 L Hct 28.9 L MCV 92.9 MCH 31.1 MCHC 33.5 RDW 14.8 Plt Count 236 MPV 8.1 Sodium 144 Potassium 4.1 Chloride 108 H Carbon Dioxide 27.2 Anion Gap 9 BUN 21 H Creatinine 0.92 Estimated GFR 58 L POC Glucose 155 H Random Glucose 99 Calcium 8.3 L MTS Gel Crossmatch 07/05/18 07/05/18 07/05/18 18:31 17:37 14:45 WBC 15.9 H RBC 3.47 L Hgb 11.0 L Hct 32.6 L MCV 94.0 MCH 31.6 MCHC 33.6 RDW 14.9 Plt Count 261 MPV 8.5 Sodium Potassium Chloride Carbon Dioxide Anion Gap BUN Creatinine Estimated GFR POC Glucose 208 H 258 H Random Glucose Calcium MTS Gel Crossmatch 07/05/18 07/05/18 14:28 09:36 WBC RBC Hgb Hct MCV MCH MCHC RDW Plt Count MPV Sodium 145 Potassium 4.2 Chloride 110 H Carbon Dioxide 27.3 Anion Gap 8 BUN 21 H Creatinine 0.95 Estimated GFR 56 L POC Glucose Random Glucose 121 H Calcium 8.2 L MTS Gel Crossmatch See Detail Discharge Plan - Discharge Details Anticipated Discharge Date: 07/06/18 - Physicians Team Attending Provider: James Durbin Other Providers: Kyaw Botello MD ; Olga Rodriguez MD ; Jose Ramon Ndiaye MD ; [employer] - Rxs /Orders / Referrals /Forms Prescriptions: New ferrous sulfate [FeroSul] 325 mg (65 mg iron) Tablet 325 mg PO DAILY 30 Days Qty: 30 RF: 3 Continue albuterol sulfate [Ventolin HFA] 90 mcg/actuation Hfa Aerosol Inhaler 2 puff Inhalation Q4HR alprazolam [Xanax] 0.25 mg Tablet 0.25 mg PO Q6HR PRN (Reason: Anxiety) ascorbic acid (vitamin C) [Vitamin C] 250 mg Tablet 500 mg PO DAILY aspirin [Aspirin Low Dose] 81 mg Tablet,Delayed Release (Dr/Ec) 81 mg PO DAILY biotin 5 mg Capsule 5 mg PO DAILY cetirizine [Zyrtec] 10 mg Tablet 10 mg PO DAILY cholecalciferol (vitamin D3) 5,000 unit Tablet 5,000 unit PO DAILY cinnamon bark [Cinnamon] 500 mg Capsule 1,000 mg PO DAILY clopidogrel [Plavix] 75 mg Tablet 75 mg PO DAILY Qty: 90 RF: 3 coenzyme Q10 50 mg Capsule 100 mg PO DAILY cyanocobalamin (vitamin B-12) 1,000 mcg Tablet 1,000 mcg PO DAILY dextromethorphan-guaifenesin [Mucinex DM] 60-1,200 mg Tablet Extended Release 12 Hr 1 tab PO Q12H PRN (Reason: Cough) Qty: 60 dicyclomine 10 mg Capsule 10 mg PO BID fluticasone 50 mcg/actuation [place],Suspension 2 spray INTRANASAL DAILY furosemide 20 mg Tablet 10 mg PO DAILY levalbuterol HCl 1.25 mg/3 mL Solution For Nebulization 1.25 mg INHALATION Q4-6H PRN (Reason: Shortness Of Breath) levothyroxine 50 mcg Tablet 50 mcg PO WEEKLY levothyroxine 75 mcg Tablet See Label Instructions .ROUTE .COMPLEX losartan 50 mg Tablet 50 mg PO DAILY multivitamin [Multiple Vitamins] Tablet 1 tab PO DAILY naphazoline-glycerin [Clear Eyes Redness Relief] 0.012-0.25 % Drops 1 drop EACH EYE Q4H PRN (Reason: redness) RF: 0 pantoprazole 40 mg Tablet,Delayed Release (Dr/Ec) 40 mg PO DAILY prednisone 10 mg Tablet 10 mg PO DAILY PRN (Reason: Inflammation) rosuvastatin 10 mg Tablet 10 mg PO HS Saccharomyces boulardii 250 mg Capsule 500 mg PO BID sennosides-docusate sodium [Senna Plus] 8.6-50 mg Tablet 1 tab PO DAILY tramadol 50 mg Tablet 50 mg PO DAILY PRN (Reason: Pain) Discontinued carvedilol [Coreg] 6.25 mg Tablet 3.125 mg PO BID Qty: 60 RF: 1 Referrals: DO Ramos [Other] - See Instructions Kaylyn Weeks PA [Family Provider] - See Instructions - Discharge Instructions Patient Printed Instructions: Transcatheter Aortic Valve Replacement (DC) Additional Instructions: 30 day Echocardiogram 08/02/18 at 1000am [facility] [phone] [place] [address] 30-day TAVR Follow up Dr Freeman 08/08/18 1030am [facility] [phone] [place] [address] 1 year Echocardiogram 07/05/19 1130am [facility] [phone] [place] [address] [address]AVR Follow up [address] Freeman 07/12/19 10am [facility] [phone] [place] [address]
[2018-07-06] MEDS ORDERED: Ascorbic Acid 500 MG Tablet PO SCH (09:00)
[2018-07-06] MEDS ORDERED: Ferrous Sulfate 325 MG Tablet PO SCH (09:00)
[2018-07-06] MEDS ORDERED: Dicyclomine 10 MG Capsule PO SCH (09:00)
[2018-07-06] MEDS ORDERED: Furosemide 20 MG Tablet PO SCH ×2 (09:00)
[2018-07-06] MEDS ORDERED: Non-Formulary Drug (Coenzyme Q10 [Coenzyme Q10] 100 MG) PO SCH (09:00)
[2018-07-06] MEDS ORDERED: Senna/Docusate Sodium 8.6/50 MG Tablet PO SCH (09:00)
[2018-07-06] MEDS ORDERED: Benzonatate 100 MG Capsule PO PRN (09:58)
[2018-07-06] MEDS ORDERED: Levothyroxine 75 MCG Tablet PO SCH (10:00)
--- NOTE | 2018-07-06 13:37 | ECHRPT ---
Indication: CONCLUSIONS Status post transcatheter aortic valve replacement. No significant perivalvular leak noted. BP: / HR: Rhythm: MEASUREMENTS (Male / Female) Normal Values Technical Quality: 2D ECHO LVOT Diameter 0.9 cm DOPPLER AV Peak Velocity 178.0 cm/s AV Peak Gradient 12.7 mmHg AV Mean Gradient 6.0 mmHg AV Velocity Time Integral 32.5 cm LVOT Peak Velocity 116.0 cm/s LVOT Peak Gradient 5.4 mmHg LVOT Velocity Time Integral 23.9 cm AV Area Cont Eq vti 0.5 cm AV Area Cont Eq pk 0.4 cm FINDINGS LEFT VENTRICLE Normal left ventricular size and wall thickness. The left ventricular systolic function is normal wi th an estimated ejection fraction in the range of 60-65%. Left ventricular diastolic function parameters a re normal. RIGHT VENTRICLE Normal right ventricular size and systolic function. LEFT ATRIUM The left atrial size is normal. RIGHT ATRIUM The right atrial size is normal. ATRIAL SEPTUM Normal atrial septal thickness without atrial level shunting by limited color doppler interrogation. AORTA The aortic root and proximal ascending aorta are normal in size on limited imaging. MITRAL VALVE Structurally normal mitral valve. No mitral valve stenosis or regurgitation. AORTIC VALVE Status post transcatheter aortic valve replacement. No significant perivalvular leak noted. TRICUSPID VALVE Structurally normal tricuspid valve. No tricuspid valve stenosis or regurgitation. PULMONARY VALVE The pulmonary valve is not well visualized. VESSELS The inferior vena cava is normal in size. PERICARDIUM No pericardial effusion. James Durbin MD, FACC (Electronically Signed) Final Date:06 July 2018 13:36
[2018-07-06 15:17] VITALS: BP 139/64; PULSE 76; RESP 16; TEMP 98.4; O2SAT 97
--- NOTE | 2018-07-06 23:55 | ECG ---
Date Performed: 07/06/2018 Time Performed: 05:46:42 PTAGE: 83 years EKG: Atrial fibrillation Left axis deviation Left bundle branch block Possible inferior infarct - age undetermined Possible lateral infarct - age undetermined Abnormal ECG Since the PREVIOUS TRACING , no significant change noted DOCTOR: Dilan Michelle Interpretating Date/Time 07/06/2018 23:53:25
--- NOTE | 2018-07-07 00:46 | ECG ---
Date Performed: 07/05/2018 Time Performed: 13:55:34 PTAGE: 83 years EKG: Sinus rhythm Leftward axis Left bundle branch block Possible inferior infarct - age undetermined Possible lateral infarct - age undetermined Abnormal ECG Since the PREVIOUS TRACING , no significant change noted DOCTOR: Dilan Michelle Interpretating Date/Time 07/07/2018 00:45:36
== END 2018-07-06 16:14 | disposition home or self-care (01) ==
LOC: HDIC 09:09 → HCVI 13:29
PROVIDERS: ADMIT Internal Medicine; ATTEND Internal Medicine
PROC: TAVRHYB (ICD-10-PCS; 2018-07-05 10:40)

== ENCOUNTER 2018-09-22 13:11 | Observation (INO) ==
[2018-09-22] MEDS ORDERED: Morphine Sulfate Inj 2 MG/ML Vial IV.PUSH ONE ×2 (15:41→19:51)
--- NOTE | 2018-09-22 15:44 | ED ---
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 Pain is described as sharp, radiating to the back. 8/10 maximally, 6/10 minimally. Pain comes in waves. No alleviating or exacerbating factors reported. Sudden onset. Denies associated SOB, N/V, diaphoresis. She states that prior to this pain she was feeling well. She denies fever, chills, cough, lower extremity edema. Denies abdominal pain, changes in bowel habits, dysuria. No treatment prior to arrival. She is followed by Dr. Freeman (cardiology ) and Dr. Davis (pulmonology.) Related Data Home Medications Medication Instructions Recorded Confirmed albuterol sulfate [Ventolin HFA] 2 puff INHALATION Q4HR 05/07/18 09/22/18 aspirin [Aspirin Low Dose] 81 mg PO DAILY 05/07/18 09/22/18 biotin 5 mg PO DAILY 05/07/18 09/22/18 cetirizine [Zyrtec] 10 mg PO DAILY 05/07/18 09/22/18 cholecalciferol (vitamin D3) 5,000 unit PO DAILY 05/07/18 09/22/18 cinnamon bark [Cinnamon] 1,000 mg PO DAILY 05/07/18 09/22/18 cyanocobalamin (vitamin B-12) 1,000 mcg PO DAILY 05/07/18 09/22/18 dicyclomine 10 mg PO BID 05/07/18 09/22/18 fluticasone 2 spray INTRANASAL DAILY 05/07/18 09/22/18 furosemide 10 mg PO DAILY 05/07/18 09/22/18 levalbuterol HCl 1.25 mg INHALATION Q4-6H PRN 05/07/18 09/22/18 levothyroxine 50 mcg PO WEEKLY 05/07/18 09/22/18 levothyroxine See Label Instructions .ROUTE 05/07/18 09/22/18 .COMPLEX losartan 50 mg PO DAILY 05/07/18 09/22/18 multivitamin [Multiple Vitamins] 1 tab PO DAILY 05/07/18 09/22/18 pantoprazole 40 mg PO DAILY 05/07/18 09/22/18 rosuvastatin 10 mg PO HS 05/07/18 09/22/18 Saccharomyces boulardii 500 mg PO BID 06/12/18 09/22/18 alprazolam [Xanax] 0.25 mg PO Q6HR PRN 06/12/18 09/22/18 sennosides-docusate sodium [Senna 1 tab PO DAILY 06/12/18 09/22/18 Plus] tramadol 50 mg PO DAILY PRN 06/12/18 09/22/18 Previous Rx's Medication Instructions Recorded clopidogrel [Plavix] 75 mg PO DAILY #90 tab 06/01/18 naphazoline-glycerin [Clear Eyes 1 drop EACH EYE Q4H PRN ml 06/14/18 Redness Relief] ferrous sulfate [FeroSul] 325 mg PO DAILY 30 Days #30 tab 07/06/18 Allergies Allergy/AdvReac Type Severity Reaction Status Date / Time vancomycin Allergy Mild ITCHING, Verified 09/22/18 20:19 RASH cefdinir Allergy Unknown unknown Verified 09/22/18 20:19 citalopram Allergy Unknown unknown Verified 09/22/18 20:19 hyoscyamine Allergy Unknown unknown Verified 09/22/18 20:19 meperidine Allergy Unknown unknown Verified 09/22/18 20:19 Sulfa (Sulfonamide Allergy Unknown Anaphylaxis Verified 09/22/18 20:19 Antibiotics) sulfacetamide [From Sumaxin] Allergy Unknown unknown Verified 09/22/18 20:19 sulfamethoxazole Allergy Unknown Anaphylaxis Verified 09/22/18 20:19 sulfur [From Sumaxin] Allergy Unknown unknown Verified 09/22/18 20:19 trimethoprim Allergy Unknown Anaphylaxis Verified 09/22/18 20:19 levofloxacin AdvReac Unknown Cramping Verified 09/22/18 20:20 of the Muscles Review of Systems ROS: all other systems reviewed are negative [facility] Social History Social History Substance History: No History of Abuse Second Hand Smoke Exposure: Yes Smoking Status: Never smoker How Often Do You Have a Drink Containing Alcohol: Never Recent Travel in [place] within the Last 8 Weeks: No Recent Out of Country Travel within the Last 8 Weeks: No Immunization History Tetanus Immunization: Unsure Exam Narrative Exam Narrative: GENERAL: Pleasant, petite, well-developed white female in no acute distress. SKIN: Focused skin assessment warm/dry. HEAD: Atraumatic. Normocephalic. EYES: Pupils equal and round. No scleral icterus. No injection or drainage. ENT: No nasal bleeding or discharge. Mucous membranes pink and moist. NECK: Trachea midline. No JVD. CARDIOVASCULAR: Regular rate and rhythm. No murmur appreciated. CHEST: Nontender throughout the precordium without deformity or crepitus. No retractions. There is reproducible point tenderness under the left breast. RESPIRATORY: No accessory muscle use. Clear to auscultation. Breath sounds equal bilaterally. GASTROINTESTINAL: Abdomen soft, non-tender, nondistended. Hepatic and splenic margins not palpable. Active bowel sounds. MUSCULOSKELETAL: No obvious deformities. No clubbing. No cyanosis. No edema. NEUROLOGICAL: Awake and alert. No obvious cranial nerve deficits. Motor grossly within normal limits. Normal speech. PSYCHIATRIC: Appropriate mood and affect; insight and judgment normal. 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 Pain is described as sharp, radiating to the back. Sudden onset. Denies associated SOB, N/V, diaphoresis. She is followed by Dr. Freeman (cardiology) and Dr. Davis (pulmonology.) BP 141/106 on arrival. Improved to 150/65 during the course of evaluation. On exam the patinet has point tenderness under the left breast, otherwise unremarkable. The patient was administered a dose of morphine. CBC unremarkable. INR 1.0.b BUN 21, Cr 1.21. BNP 263. EKG without acute findings. Trop negative x 1. Ozzie murguia came to the ED and interrogated the patient's pacemaker device. Normal function noted. CTA without evidence of PE. On recheck the patient states that she had another painful episode. She was administered a second dose of morphine and a 500 mL bolus of normal saline. Plan to admit her to the chest pain center. She is agreeable to this plan. Please see their notes for disposition. Medical Screen Exam Complete: Yes Emergency Medical Condition: Yes Differential Diagnosis Differential Diagnosis: CHF exacerbation versus CP versus ACS versus medical instrument cable fabricator malfunction versus thoracic aneurysm versus musculoskeletal pain versus pancreatitis versus other Medical Records Medical records reviewed: Yes I reviewed the patient's medical records. PFT: March 2018 with FEV1 of 1.21, moderate restrictive defect. SARA: March 2018 showed a EF of 54% with mild tricuspid, mitral regurgitation and mild aortic insufficiency. Cardiac Cath: March 2018 severe LAD stenosis with drug-eluting stent. Lab Data Result diagrams: 09/22/18 15:32 09/22/18 16:55 Lab Results 09/22/18 09/22/18 09/22/18 Range/Units 15:32 15:32 15:32 WBC 8.1 (4.0-11.0) th/mm3 RBC 4.26 (4.00-5.30) mil/mm3 Hgb 13.5 (11.6-15.3) gm/dL Hct 39.6 (35.0-46.0) % MCV 93.1 (80.0-100.0) fL MCH 31.8 (27.0-34.0) pg MCHC 34.2 (32.0-36.0) % RDW 15.5 (11.6-17.2) % Plt Count 233 (150-450) th/mm3 MPV 8.5 (7.0-11.0) fL Neut % (Auto) 48.7 (16.0-70.0) % Lymph % (Auto) 38.4 (9.0-44.0) % [place] % (Auto) 9.0 H (0.0-8.0) % Eos % (Auto) 3.0 (0.0-4.0) % Baso % (Auto) 0.9 (0.0-2.0) % Neut # (Auto) 3.9 (1.8-7.7) th/mm3 Lymph # (Auto) 3.1 (1.0-4.8) th/mm3 [place] # (Auto) 0.7 (0.0-0.9) th/mm3 Eos # (Auto) 0.2 (0.0-0.4) th/mm3 Baso # (Auto) 0.1 (0.0-0.2) th/mm3 WBC Differential . Differential Comment Auto diff final PT 10.2 (9.8-11.6) sec INR 1.0 Ratio Sodium (136-145) meq/L Potassium (3.5-5.1) meq/L Chloride (98-107) meq/L Carbon Dioxide (21.0-32.0) meq/L Anion Gap (5-15) meq/L BUN (7-18) mg/dL Creatinine (0.50-1.00) mg/dL Estimated GFR (>89) mL/min Random Glucose (74-106) mg/dL Calcium (8.5-10.1) mg/dL Magnesium (1.5-2.5) mg/dL Total Bilirubin (0.2-1.0) mg/dL AST (15-37) U/L ALT (10-53) U/L Alkaline Phosphatase (45-117) U/L Troponin I (0.02-0.05) ng/mL B-Natriuretic Peptide 263 H (0-100) pg/mL Total Protein (6.4-8.2) g/dL Albumin (3.4-5.0) g/dL Lipase Urine Color (Yellw/Straw) Urine Clarity (Clear) Urine pH (5.0-8.5) Ur Specific [place] (1.002-1.035) Urine Protein (Neg-Trace) mg/dL Urine Glucose (UA) (Negative) mg/dL Urine Ketones (Negative) mg/dL Urine Occult Blood (Negative) Urine Nitrate (Negative) Urine Bilirubin (Negative) Urine Urobilinogen (Less than 2) mg/dL Ur Leukocyte Esterase (Negative) Urine RBC (0-3) /hpf Urine WBC (0-5) /hpf Ur Squamous Epith Cells (0-5) /hpf Micro UA Comment Ur Microscopic Review Urine Culture Comments 09/22/18 09/22/18 09/22/18 Range/Units 15:32 15:32 16:55 WBC (4.0-11.0) th/mm3 RBC (4.00-5.30) mil/mm3 Hgb (11.6-15.3) gm/dL Hct (35.0-46.0) % MCV (80.0-100.0) fL MCH (27.0-34.0) pg MCHC (32.0-36.0) % RDW (11.6-17.2) % Plt Count (150-450) th/mm3 MPV (7.0-11.0) fL Neut % (Auto) (16.0-70.0) % Lymph % (Auto) (9.0-44.0) % [place] % (Auto) (0.0-8.0) % Eos % (Auto) (0.0-4.0) % Baso % (Auto) (0.0-2.0) % Neut # (Auto) (1.8-7.7) th/mm3 Lymph # (Auto) (1.0-4.8) th/mm3 [place] # (Auto) (0.0-0.9) th/mm3 Eos # (Auto) (0.0-0.4) th/mm3 Baso # (Auto) (0.0-0.2) th/mm3 WBC Differential Differential Comment PT (9.8-11.6) sec INR Ratio Sodium 141 (136-145) meq/L Potassium 4.8 (3.5-5.1) meq/L Chloride 108 H (98-107) meq/L Carbon Dioxide 26.4 (21.0-32.0) meq/L Anion Gap 7 (5-15) meq/L BUN 21 H (7-18) mg/dL Creatinine 1.21 H (0.50-1.00) mg/dL Estimated GFR 42 L (>89) mL/min Random Glucose 104 (74-106) mg/dL Calcium 9.4 (8.5-10.1) mg/dL Magnesium 2.0 (1.5-2.5) mg/dL Total Bilirubin 0.4 (0.2-1.0) mg/dL AST 17 (15-37) U/L ALT 14 (10-53) U/L Alkaline Phosphatase 81 (45-117) U/L Troponin I Less than 0.02 L (0.02-0.05) ng/mL B-Natriuretic Peptide (0-100) pg/mL Total Protein 7.3 (6.4-8.2) g/dL Albumin 3.7 (3.4-5.0) g/dL Lipase Cancelled 197 Urine Color Straw (Yellw/Straw) Urine Clarity Clear (Clear) Urine pH 5.0 (5.0-8.5) Ur Specific [place] 1.004 (1.002-1.035) Urine Protein Negative (Neg-Trace) mg/dL Urine Glucose (UA) Negative (Negative) mg/dL Urine Ketones Negative (Negative) mg/dL Urine Occult Blood Negative (Negative) Urine Nitrate Negative (Negative) Urine Bilirubin Negative (Negative) Urine Urobilinogen Less than 2 (Less than 2) mg/dL Ur Leukocyte Esterase Negative (Negative) Urine RBC 1 (0-3) /hpf Urine WBC 1 (0-5) /hpf Ur Squamous Epith Cells <1 (0-5) /hpf Micro UA Comment Culture not ind Ur Microscopic Review Not Reportable Urine Culture Comments Culture not ind Imaging Data Radiologist's impression: Chest X-Ray 09/22/18 15:28 CONCLUSION: Stable chest without evidence of acute process. Chest CTA 09/22/18 15:47 CONCLUSION: 1. No pulmonary embolus. 2. Possible chronic pulmonary hypertension. 3. Mild thickening of the interlobular septa and diffuse, patchy groundglass opacities of both lungs suggesting a slight degree of failure. No pleural effusions. 4. Previous endovascular aortic valve replacement. Discharge Plan Discharge Disposition Patient Disposition: 30 Still Patient Physicians Team ED Provider: Ortiz Michelle ED Midlevel Provider: Judy Roberts Primary Care Provider: Do Marsha Beasley Attending Provider: Yolanda Freeman Discharge Interventions Interventions: ED Discharge Assessment Last Done: 09/22/18 21:28 Vital Signs Last Done: 09/22/18 18:53 Status ED Status: Admitted Observation Patient Discharge Information Discharge Date/Time: 09/22/18 21:40
[2018-09-22 15:50] LABS: Baso # (Auto) 0.1 th/mm3 (0.0-0.2); Baso % (Auto) 0.9 % (0.0-2.0); Eos # (Auto) 0.2 th/mm3 (0.0-0.4); Hematocrit 39.6 % (35.0-46.0); Hemoglobin 13.5 gm/dL (11.6-15.3); Lymph # (Auto) 3.1 th/mm3 (1.0-4.8); Lymph % (Auto) 38.4 % (9.0-44.0); Mean Corpuscular HGB Conc 34.2 % (32.0-36.0); Mean Corpuscular Hemoglobin 31.8 pg (27.0-34.0); Mean Corpuscular Volume 93.1 fL (80.0-100.0); Mean Platelet Volume 8.5 fL (7.0-11.0); Mono # (Auto) 0.7 th/mm3 (0.0-0.9); Neut # (Auto) 3.9 th/mm3 (1.8-7.7); Neut % (Auto) 48.7 % (16.0-70.0); Platelet Count 233 th/mm3 (150-450); Red Blood Count 4.26 mil/mm3 (4.00-5.30); Red Cell Distribution Width 15.5 % (11.6-17.2); White Blood Count 8.1 th/mm3 (4.0-11.0)
[2018-09-22 15:59] LABS: Prothrombin Time 10.2 sec (9.8-11.6)
[2018-09-22 16:02] LABS: Bilirubin,Urine Negative (Negative); Clarity,Urine Clear (Clear); Color,Urine Straw (Yellw/Straw); Glucose,Urine (UA) Negative (Negative); Leukocyte Esterase,Urine Negative (Negative); Nitrite,Urine Negative (Negative); Specific Gravity,Urine 1.004 (1.002-1.035); Squamous Epithelial Cell,Urine <1 /hpf (0-5)
--- NOTE | 2018-09-22 16:11 | XR ---
EXAM DATE: 09/22/2018 4:06 PM EST AGE/SEX: 83 years / Female INDICATIONS: Chest pain. CLINICAL DATA: This is the patient's initial encounter. Patient reports that signs and symptoms have been present for 3 days and indicates a pain score of 8/10. MEDICAL/SURGICAL HISTORY: Congestive heart failure. heart attack, pneumonia. . coronary artery stents, pacemaker COMPARISON: [facility], XR CHEST PA AND LAT, 09/01/2018. . FINDINGS: A single AP view of the chest demonstrates the lungs to be symmetrically aerated without evidence of mass, infiltrate or effusion. Scattered calcified granulomas and mediastinal calcified lymph nodes ar e again noted. The cardiomediastinal contours are unremarkable. Pacemaker appears stable. Right shoul kadie prosthesis is intact. Osseous structures are intact. CONCLUSION: Stable chest without evidence of acute process. Electronically signed by: Cuauhtemoc Boston MD 09/22/2018 4:09 PM EST
[2018-09-22 17:38] LABS: Alanine Aminotransferase 14 U/L (10-53); Albumin 3.7 g/dL (3.4-5.0); Anion Gap 7 meq/L (5-15); Aspartate Aminotransferase 17 U/L (15-37); Blood Urea Nitrogen 21 mg/dL (7-18); Calcium 9.4 mg/dL (8.5-10.1); Carbon Dioxide 26.4 meq/L (21.0-32.0); Chloride 108 meq/L (98-107); Glomerular Filtration Rate 42 mL/min (>89); Glucose,Random 104 mg/dL (74-106); Lipase 197 U/L (73-393); Potassium 4.8 meq/L (3.5-5.1); Sodium 141 meq/L (136-145)
[2018-09-22 17:43] LABS: Alkaline Phosphatase 81 U/L (45-117); Total Protein 7.3 g/dL (6.4-8.2)
[2018-09-22] MEDS ORDERED: Sodium Chlor 0.9% Inj 500 ML IV.SIG ONE ×2 (19:48→19:51)
--- NOTE | 2018-09-22 19:57 | CT ---
EXAM DATE: 09/22/2018 7:47 PM EST AGE/SEX: 83 years / Female INDICATIONS: Chest Pain CLINICAL DATA: This is the patient's initial encounter. Patient reports that signs and symptoms have been present for 1 day and indicates a pain score of 4/10. MEDICAL/SURGICAL HISTORY: Hypertension. Chronic obstructive pulmonary disease. Gastroesophageal r eflux disease. Renal disease, Diabetic Cholecystectomy. Appendectomy. Pacemaker. Hysterectomy, RADIATION DOSE: 13.48 CTDI (mGy) COMPARISON: [facility] [place] CHEST TRANSAORTIC VALVE REP, 06/14/2018. . TECHNIQUE: Volumetric scanning was performed using a multi-row detector CT scanner during bolus infu peter of 74ML ml Visipaque 320 (iodixanol) nonionic water-soluble contrast as a single exam dose. The data was post processed with a variety of visualization algorithms including full volume maximum int ensity projection and sliding thin slab reformation. Using automated exposure control and adjustment of the mA and/or kV according to patient size, radiation dose was kept as low as reasonably achievab le to obtain optimal diagnostic quality images. DICOM format image data is available electronically for review and comparison. FINDINGS: No pulmonary embolus. Prominent caliber main pulmonary artery suggesting the possibility of chronic p ulmonary hypertension and/or pulmonic stenosis. There is no right ventricular enlargement substantiat e the bladder at patient has had intraluminal aortic valve replacement. There are also coronary arter y stents. Diffuse but patchy groundglass opacities are seen of both lungs and mild thickening of the interlobul ar septa. No dense or confluent consolidation. Granulomatous changes are again noted. CONCLUSION: 1. No pulmonary embolus. 2. Possible chronic pulmonary hypertension. 3. Mild thickening of the interlobular septa and diffuse, patchy groundglass opacities of both lungs suggesting a slight degree of failure. No pleural effusions. 4. Previous endovascular aortic valve replacement. Electronically signed by: Ebenezer Cole MD 09/22/2018 7:55 PM EST
[2018-09-22 22:05] LABS: Troponin I 0.02 ng/mL (0.02-0.05)
[2018-09-23] MEDS ORDERED: Acetaminophen 500 MG Tablet PO PRN (00:59)
[2018-09-23 01:21] LABS: Troponin I 0.02 ng/mL (0.02-0.05)
[2018-09-23 03:41] VITALS: O2SAT 95
[2018-09-23 07:34] VITALS: BP 155/68; PULSE 74; RESP 20; TEMP 97.8
[2018-09-23] MEDS ORDERED: Ketorolac Inj 30 MG/ML (IVP) Vial IV.PUSH ONE (08:00)
--- NOTE | 2018-09-23 08:14 | P.HPCA ---
History of Present Illness Service: Chest pains or Primary Care Physician: Do Marsha Beasley Chief Complaint: Sharp chest pain History of Present Illness: Very pleasant but complicated 83-year-old lady with a history of known coronary artery disease. She had 2 stents placed in the LAD earlier this year by Dr. Michelle and has done well with no significant pain or problems since. She also underwent a TA VR by Dr. Mcgarry in March. She has done well postoperatively in both cases. 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 She was doing reasonably well until about 2 days prior to admission when she began to develop a sharp discomfort in her mid and left chest area. She states that this felt like a muscle strain but she cannot recall doing anything to cause. The pain is fairly severe radiating through to the back and is graded as an 8 out of 10 but with fluctuation. She does note that it is irritated by movement of the chest wall. She also notes that when the doctor examined her in the emergency room her chest was exquisitely tender and that she now notices that it is very sore when she touches it. She is followed by Dr. Freeman and in fact is scheduled for a routine stress test this coming Tuesday and Tuesday. She is also followed by Dr. Luis Manuel Davis for her pulmonary issues. Her pain is somewhat less than it was on presentation but continues as an aching pain. She has already ruled out for ACS and has a negative CTA. - Diagnosis (1) Chest pain in adult Review of Systems All other systems reviewed negative except as stated in HPI [facility] [place] - History History Provided By: Patient - Medical History Medical History: Medical History (Last Reviewed 07/06/18 @ 09:11 by Grupo Fierro, PT) Aortic stenosis CAD (coronary artery disease) CKD (chronic kidney disease) stage 2, GFR 60-89 ml/min COPD (chronic obstructive pulmonary disease) Diabetes mellitus FHx: total knee replacement GERD (gastroesophageal reflux disease) HLD (hyperlipidemia) High cholesterol Hypertension Pacemaker Pneumonia Sarcoidosis of lung Thyroid disease - Surgical History Surgical History: Surgical History (Last Reviewed 07/05/18 @ 13:53 by Grupo Sanders) H/O cardiac catheterization H/O hernia repair H/O shoulder replacement H/O total hysterectomy History of appendectomy History of cholecystectomy Hx of cataract surgery - Family History Family History: Family History (Last Reviewed 07/05/18 @ 13:24 by Jose Ramon Ndiaye MD) Other Family history normal - Tobacco History Second Hand Smoke Exposure: Yes Smoking Status: Never smoker - Alcohol History How Often Do You Have a Drink Containing Alcohol: Never - Substance Use History Substance History: No History of Abuse - Travel History Recent Travel in the [place] Within the Last 8 Weeks: No Recent Travel Out of the Country Within the Last 8 Weeks: No - Immunization History Tetanus Immunization: Unsure Hx Influenza Vaccine This Season: Yes Medications and Allergies Active Medications: Active Medications Acetaminophen (Tylenol) 500 mg PO Q4H PRN PRN Reason: HEADACHE Ketorolac Tromethamine (Toradol Inj) 15 mg IV.PUSH ONCE ONE Stop: 09/23/18 07:55 Ondansetron HCl (Zofran Inj) 4 mg IV.PUSH Q6H PRN PRN Reason: NAUSEA Sodium Chloride (Ns Flush) 2 ml IV.FLUSH BID CARLI Last Admin: 09/22/18 22:02 Dose: Not Given Sodium Chloride (Ns Flush) 2 ml IV.FLUSH PRN PRN PRN Reason: FLUSH AFTER USING IV ACCESS Allergies Allergy/AdvReac Type Severity Reaction Status Date / Time vancomycin Allergy Mild ITCHING, Verified 09/22/18 20:19 RASH cefdinir Allergy Unknown unknown Verified 09/22/18 20:19 citalopram Allergy Unknown unknown Verified 09/22/18 20:19 hyoscyamine Allergy Unknown unknown Verified 09/22/18 20:19 meperidine Allergy Unknown unknown Verified 09/22/18 20:19 Sulfa (Sulfonamide Allergy Unknown Anaphylaxis Verified 09/22/18 20:19 Antibiotics) sulfacetamide [From Sumaxin] Allergy Unknown unknown Verified 09/22/18 20:19 sulfamethoxazole Allergy Unknown Anaphylaxis Verified 09/22/18 20:19 sulfur [From Sumaxin] Allergy Unknown unknown Verified 09/22/18 20:19 trimethoprim Allergy Unknown Anaphylaxis Verified 09/22/18 20:19 levofloxacin AdvReac Unknown Cramping Verified 09/22/18 20:20 of the Muscles Home Medications Medication Instructions Recorded Confirmed Type albuterol sulfate [Ventolin HFA] 2 puff INHALATION Q4HR 05/07/18 09/22/18 History aspirin [Aspirin Low Dose] 81 mg PO DAILY 05/07/18 09/22/18 History biotin 5 mg PO DAILY 05/07/18 09/22/18 History cetirizine [Zyrtec] 10 mg PO DAILY 05/07/18 09/22/18 History cholecalciferol (vitamin D3) 5,000 unit PO DAILY 05/07/18 09/22/18 History cinnamon bark [Cinnamon] 1,000 mg PO DAILY 05/07/18 09/22/18 History cyanocobalamin (vitamin B-12) 1,000 mcg PO DAILY 05/07/18 09/22/18 History dicyclomine 10 mg PO BID 05/07/18 09/22/18 History fluticasone 2 spray INTRANASAL DAILY 05/07/18 09/22/18 History furosemide 10 mg PO DAILY 05/07/18 09/22/18 History levalbuterol HCl 1.25 mg INHALATION Q4-6H PRN 05/07/18 09/22/18 History levothyroxine 50 mcg PO WEEKLY 05/07/18 09/22/18 History levothyroxine See Label Instructions .ROUTE 05/07/18 09/22/18 History .COMPLEX losartan 50 mg PO DAILY 05/07/18 09/22/18 History multivitamin [Multiple Vitamins] 1 tab PO DAILY 05/07/18 09/22/18 History pantoprazole 40 mg PO DAILY 05/07/18 09/22/18 History rosuvastatin 10 mg PO HS 05/07/18 09/22/18 History Saccharomyces boulardii 500 mg PO BID 06/12/18 09/22/18 History alprazolam [Xanax] 0.25 mg PO Q6HR PRN 06/12/18 09/22/18 History sennosides-docusate sodium [Senna 1 tab PO DAILY 06/12/18 09/22/18 History Plus] tramadol 50 mg PO DAILY PRN 06/12/18 09/22/18 History Exam Vital signs: Vital Signs 09/22/18 13:18 09/22/18 15:28 09/22/18 18:52 Temperature 98.3 F Pulse Rate 76 78 79 Respiratory Rate 18 20 18 Blood Pressure 127/60 141/106 H 146/71 H Pulse Oximetry 99 97 96 09/22/18 18:53 09/22/18 20:17 11/24/18 00:00 Temperature 98.7 F Pulse Rate 78 75 74 Respiratory Rate 18 18 16 Blood Pressure 146/71 H 150/65 H 128/60 Pulse Oximetry 95 95 96 09/23/18 03:41 09/23/18 07:33 Temperature 98.4 F 97.8 F Pulse Rate 70 74 Respiratory Rate 18 20 Blood Pressure 157/70 H 155/68 H Pulse Oximetry 95 Intake & Output 09/22/18 09/23/18 09/23/18 18:59 06:59 18:59 Intake Total 500 / 500 Balance 500 / 500 Weight 64.864 kg Intake: IV 500 / 500 NS Inj 500 ML @ Wide Open IV. 500 / 500 SIG BOLUS ONE Rx#:[id number] Other: Weight On Admission 64.6 kg Narrative: Awake alert pleasant 83-year-old lady resting comfortably in the bed with her daughter at the bedside Skin warm and dry Head normocephalic atraumatic hair normal distribution Eyes PERRLA EOMI bilateral intraocular lenses sclera clear Mouth mucous membranes moist and well papillated upper plate in place lower edentulous no lesions Neck supple no JVD masses nodes or bruits. Carotid pulses are intact and brisk Chest exquisitely tender over the lower sternum both right and left but specifically on the left extending over the left rib cage to the mid axillary line. Breath sounds are clear bilaterally with no rales wheezes or rhonchi. Pacer pocket appears to be stable and is not swollen or inflamed. Cardiovascular PMI may be slightly displaced however there is a regular rhythm ( probably paced) with a 2/6 systolic murmur. No diastolic murmur is appreciated and there is no gallop or rub Abdomen is slightly sensitive but nontender no guarding or rebound no hepatosplenomegaly is palpated Extremities reveal only a trace of pedal edema with no clubbing cyanosis Neurologic cranial nerves are intact motor is intact to all 4 extremities approximately equal Psychiatric patient is alert affect is good Results 09/22/18 15:32 09/22/18 16:55 Cardiac Enzymes 09/22/18 09/22/18 09/22/18 Range/Units 15:32 16:55 21:15 AST 17 (15-37) U/L Troponin I Less than 0.02 L 0.02 (0.02-0.05) ng/mL B-Natriuretic Peptide 263 H (0-100) pg/mL 09/23/18 Range/Units 00:30 AST (15-37) U/L Troponin I 0.02 (0.02-0.05) ng/mL B-Natriuretic Peptide (0-100) pg/mL Coagulation 09/22/18 09/22/18 Range/Units 15:32 15:32 PT 10.2 (9.8-11.6) sec B-Natriuretic Peptide 263 H (0-100) pg/mL CBC 09/22/18 Range/Units 15:32 WBC 8.1 (4.0-11.0) th/mm3 RBC 4.26 (4.00-5.30) mil/mm3 Hgb 13.5 (11.6-15.3) gm/dL Hct 39.6 (35.0-46.0) % Plt Count 233 (150-450) th/mm3 Neut # (Auto) 3.9 (1.8-7.7) th/mm3 Lymph # (Auto) 3.1 (1.0-4.8) th/mm3 [place] # (Auto) 0.7 (0.0-0.9) th/mm3 Eos # (Auto) 0.2 (0.0-0.4) th/mm3 Baso # (Auto) 0.1 (0.0-0.2) th/mm3 Comprehensive Metabolic Panel 09/22/18 Range/Units 16:55 Sodium 141 (136-145) meq/L Potassium 4.8 (3.5-5.1) meq/L Chloride 108 H (98-107) meq/L Carbon Dioxide 26.4 (21.0-32.0) meq/L BUN 21 H (7-18) mg/dL Creatinine 1.21 H (0.50-1.00) mg/dL Calcium 9.4 (8.5-10.1) mg/dL AST 17 (15-37) U/L ALT 14 (10-53) U/L Alkaline Phosphatase 81 (45-117) U/L Total Protein 7.3 (6.4-8.2) g/dL Albumin 3.7 (3.4-5.0) g/dL Intake and Output 09/22/18 09/23/18 09/23/18 22:59 06:59 14:59 Intake Total 500 / 500 Balance 500 / 500 Intake: IV 500 / 500 NS Inj 500 ML @ Wide Open IV. 500 / 500 SIG BOLUS ONE Rx#:[id number] Other: Weight On Admission 64.6 kg - Imaging and Cardiology Imaging: Impressions Chest X-Ray 09/22/18 15:28 CONCLUSION: Stable chest without evidence of acute process. Chest CTA 09/22/18 15:47 CONCLUSION: 1. No pulmonary embolus. 2. Possible chronic pulmonary hypertension. 3. Mild thickening of the interlobular septa and diffuse, patchy groundglass opacities of both lungs suggesting a slight degree of failure. No pleural effusions. 4. Previous endovascular aortic valve replacement. EKG interpretations - EKG EKG results cardiology: interpreted by OSCAR Gomez VTE Risk Assessment Jason VTE Risk Assessment: Moderate/High Risk (score >= 2) Fadirini Risk Assessment Model: Point Value = 1 Point Value = 2 Point Value = 3 Point Value = 5 Age 41-60 Minor surgery BMI > 25 kg/m2 Swollen legs Varicose veins or History of unexplained or recurrent spontaneous Oral contraceptives or hormone replacement Sepsis (< 1 month) Serious lung disease, including pneumonia (< 1 month) Abnormal pulmonary function Acute myocardial infarction Congestive heart failure (< 1 month) History of inflammatory bowel disease Medical patient at bed rest Age 61-74 Arthroscopic surgery Major open surgery (> 45 min) Laparoscopic surgery (> 45 min) Malignancy Confined to bed (> 72 hours) Immobilizing plaster cast Central venous access Age >= 75 History of VTE Family history of VTE Factor V Leiden Prothrombin [id number] Lupus anticoagulant Anticardiolipin antibodies Elevated serum homocysteine Heparin-induced thrombocytopenia Other congenital or acquired thrombophilia Stroke (< 1 month) Elective arthroplasty Hip, pelvis, or leg fracture Acute spinal cord injury (< 1 month) Prophylaxis Regimen: Total Risk Factor Score Risk Level Prophylaxis Regimen 0-1 Low Early ambulation 2 Moderate Order ONE of the following: *Sequential Compression Device (SCD) *Heparin 5000 units SQ BID 3-4 Higher Order ONE of the following medications: *Heparin 5000 units SQ TID *Enoxaparin/Lovenox 40 mg SQ daily (WT < 150 kg, CrCl > 30 mL/min) *Enoxaparin/Lovenox 30 mg SQ daily (WT < 150 kg, CrCl > 10-29 mL/min) *Enoxaparin/Lovenox 30 mg SQ BID (WT < 150 kg, CrCl > 30 mL/min) AND/OR *Sequential Compression Device (SCD) 5 or more Highest Order ONE of the following medications: *Heparin 5000 units SQ TID (Preferred with Epidurals) *Enoxaparin/Lovenox 40 mg SQ daily (WT < 150 kg, CrCl > 30 mL/min) *Enoxaparin/Lovenox 30 mg SQ daily (WT < 150 kg, CrCl > 10-29 mL/min) *Enoxaparin/Lovenox 30 mg SQ BID (WT < 150 kg, CrCl > 30 mL/min) AND *Sequential Compression Device (SCD) Assessment and Plan - Assessment (1) Chest pain in adult Code(s): R07.9 - Chest pain, unspecified Status: Acute Plan: This patient has exquisite chest pain to palpation and chest wall motion consistent with costochondritis. She has ruled out for ACS and further evaluation at this point is not felt appropriate since she has already scheduled for follow-up evaluation with Dr. Freeman this coming Tuesday including stress test. Patient will be treated currently with Toradol and discharged for home treatment with moist heat nonsteroidal anti-inflammatories and limited amount pending her evaluation with Dr. Freeman the day after tomorrow. H&P: Quality - VTE Deep Vein Thrombosis/Pulmonary Embolism Present on Admission: No
--- NOTE | 2018-09-23 11:09 | ECG ---
Date Performed: 09/23/2018 Time Performed: 00:21:20 PTAGE: 83 years EKG: ELECTRONIC VENTRICULAR PACEMAKER ABNORMAL RHYTHM ECG PREVIOUS TRACING : 09/22/2018 21.33 DOCTOR: Tam Adair Interpretating Date/Time 09/23/2018 11:08:59
--- NOTE | 2018-09-23 11:11 | ECG ---
Date Performed: 09/22/2018 Time Performed: 21:33:40 PTAGE: 83 years EKG: ELECTRONIC VENTRICULAR PACEMAKER ABNORMAL RHYTHM ECG PREVIOUS TRACING : 09/22/2018 13.27 DOCTOR: Tam Adair Interpretating Date/Time 09/23/2018 11:10:35
--- NOTE | 2018-09-23 11:14 | ECG ---
Date Performed: 09/22/2018 Time Performed: 13:27:25 PTAGE: 83 years EKG: ELECTRONIC VENTRICULAR PACEMAKER ABNORMAL RHYTHM ECG NO PREVIOUS TRACING DOCTOR: Tam Adair Interpretating Date/Time 09/23/2018 11:13:00
== END 2018-09-23 10:56 | disposition home or self-care (01) ==
LOC: NEPE 13:11 → NEDA 13:11 → NEPHCDU 21:55
PROVIDERS: ADMIT Internal Medicine Interventional Cardiology; ATTEND Internal Medicine Interventional Cardiology
DX: Z99.81 Dependence on supplemental oxygen; I50.9 Heart failure, unspecified; I27.20 Pulmonary hypertension, unspecified; K21.9 Gastro-esophageal reflux disease without esophagitis; Z79.02 Long term (current) use of antithrombotics/antiplatelets; Z90.710 Acquired absence of both cervix and uterus; Z79.82 Long term (current) use of aspirin; Z88.2 Allergy status to sulfonamides; J44.9 Chronic obstructive pulmonary disease, unspecified; Z96.619 Presence of unspecified artificial shoulder joint; Z79.890 Hormone replacement therapy; Z88.1 Allergy status to other antibiotic agents; R07.9 Chest pain, unspecified; I25.10 Atherosclerotic heart disease of native coronary artery without angina pectoris; D86.9 Sarcoidosis, unspecified; I35.0 Nonrheumatic aortic (valve) stenosis; E78.00 Pure hypercholesterolemia, unspecified; N18.2 Chronic kidney disease, stage 2 (mild); I13.0 Hypertensive heart and chronic kidney disease with heart failure and stage 1 through stage 4 chronic kidney disease, or unspecified chronic kidney disease; Z90.49 Acquired absence of other specified parts of digestive tract; E11.22 Type 2 diabetes mellitus with diabetic chronic kidney disease; E78.5 Hyperlipidemia, unspecified